=== PATIENT | male | born 1950 | race Caucasian/White ===

== ENCOUNTER 2018-03-25 11:05 | Emergency (ER) | payer MEDICARE ==
--- NOTE | 2018-03-25 11:49 | RAD ---
CHEST TWO VIEWS: HISTORY: Cough. Hemoptysis. COMPARISON: None. FINDINGS/IMPRESSION: Normal cardiac silhouette. The pulmonary vessels are slightly prominent. There are patchy interstit ial opacities throughout the lung parenchyma, greatest along the lateral aspect of the lower right he mithorax, noted on the PA projection. A focal infiltrate in this region is suspected. Continued deb veillance to ensure resolution is recommended. If radiographic findings persist after appropriate me dical management, consider CT. POS: [facility]
== END 2018-03-25 12:18 | disposition home or self-care (01) ==
LOC: SCSER 11:05
DX: J18.9 Pneumonia, unspecified organism (principal); I10 Essential (primary) hypertension; F41.9 Anxiety disorder, unspecified; Z79.899 Other long term (current) drug therapy
CPT/HCPCS: 71046; 93005; 94640; J7620

== ENCOUNTER 2018-08-05 12:14 | Outpatient (CLI) | payer MEDICARE ==
[2018-08-05 12:40] LABS: #Basophils 0.1 thou/uL (0.0-0.2); #Eosinphils 0.3 thou/uL (0.0-0.7); #Lymphocytes 1.9 thou/uL (1.20-3.40); #Monocytes 1.1 thou/uL (0.11-0.59); #Neutrophils 6.2 thou/uL (1.40-6.50); %Basophils 1.2 % (0.0-1.0); %Eosinophils 2.8 % (0.0-10.0); %Lymphocytes 19.6 % (21.0-51.0); %Monocytes 11.6 % (0.0-10.0); %Neutrophils 64.8 % (42.0-75.0); Hemoglobin 16.1 g/dL (14.0-18.0); Mean Corpuscular HGB CONC 33.8 g/dL (32.0-36.0); Mean Corpuscular Hemoglobin 31.8 pg (27.0-31.0); Platelet Count 160 thou/uL (130-400); RBC Distribution Width 12.1 % (11.5-14.5); Red Blood Cell (RBC) Count 5.06 mill/uL (4.70-6.10); White Blood Cell (WBC) Count 9.5 thou/uL (4.8-10.8)
[2018-08-05 12:51] LABS: ALT (SGPT) 16 U/L (8-55); AST (SGOT) 18 U/L (5-34); Albumin 4.5 g/dL (3.4-4.8); Alkaline Phosphatase 73 U/L (40-150); Anion Gap 14 mmol/L (10-20); BUN (Urea Nitrogen) 9 mg/dL (8.4-25.7); Bilirubin, Total 0.8 mg/dL (0.2-1.2); Calc. Creatinine Clearance 0 mL/min (70-130); Carbon Dioxide 28 mmol/L (23-31); Cardiac Risk 4.9 (Less than 4.5); Chloride 103 mmol/L (98-107); Cholesterol 138 mg/dl (< 200 Desired); Estimated GFR-MDRD 60; Globulin 3.2 g/dL (2.4-3.5); Glucose 104 mg/dL (80-115); HDL Cholesterol 28 mg/dL (>60 Neg Risk); LDL Cholesterol, Calculated 79 mg/dL; Potassium 4.8 mmol/L (3.5-5.1); Protein, Total 7.7 g/dL (5.8-8.1); Sodium 140 mmol/L (136-145); Triglycerides 157 mg/dL (Less than 150)
[2018-08-05 13:29] LABS: Free T4 (Free Thyroxine) 1.12 ng/dL (0.70-1.48); PSA-Asymptomatic (SCREENING) 0.32 ng/mL (0-4.0); Thyroid Stimulating Hormone 0.8553 uIU/mL (0.35-4.94)
--- NOTE | 2018-08-05 14:15 | RAD ---
TWO VIEWS OF THE CHEST: DATE: 08/05/2018. COMPARISON: None. HISTORY: Pneumonia, cough. FINDINGS: Heart and mediastinal contours are stable. Hazy density noted on the prior examination within the ri ght base has resolved. On the current exam, there is no pneumothorax, pleural fluid, focal consolida tion, or alveolar edema. There is mild increased linear interstitial density with pulmonary hyperinf lation. IMPRESSION: Interstitial density and pulmonary hyperinflation. No focal consolidation or alveolar edema. POS: [facility]
== END 2018-08-05 12:15 | disposition home or self-care (01) ==
LOC: SCSRAD 12:14
PROVIDERS: ATTEND Family Medicine
DX: Z12.5 Encounter for screening for malignant neoplasm of prostate (principal); J18.1 Lobar pneumonia, unspecified organism; I10 Essential (primary) hypertension; E78.5 Hyperlipidemia, unspecified; R91.8 Other nonspecific abnormal finding of lung field
CPT/HCPCS: 36415; 71046; 80053; 80061; 84439; 84443; 85025; G0103

== ENCOUNTER 2018-12-11 12:47 | Observation (INO) | payer MEDICARE ==
[2018-12-11] MEDS ORDERED: Nitroglycerin 0.4 MG TAB 1 EACH ONE (13:15)
[2018-12-11 13:22] LABS: #Basophils 0.1 thou/uL (0.0-0.2); #Eosinphils 0.2 thou/uL (0.0-0.7); #Lymphocytes 2.1 thou/uL (1.20-3.40); #Monocytes 0.9 thou/uL (0.11-0.59); #Neutrophils 4.5 thou/uL (1.40-6.50); %Basophils 0.9 % (0.0-1.0); %Eosinophils 2.1 % (0.0-10.0); %Lymphocytes 27.6 % (21.0-51.0); %Monocytes 11.2 % (0.0-10.0); %Neutrophils 58.3 % (42.0-75.0); Hemoglobin 14.8 g/dL (14.0-18.0); Mean Corpuscular HGB CONC 35.6 g/dL (32.0-36.0); Mean Corpuscular Volume 95.6 fL (78.0-98.0); Platelet Count 191 thou/uL (130-400); RBC Distribution Width 12.1 % (11.5-14.5); Red Blood Cell (RBC) Count 4.35 mill/uL (4.70-6.10); White Blood Cell (WBC) Count 7.7 thou/uL (4.8-10.8)
--- NOTE | 2018-12-11 13:22 | RAD ---
Exam: Chest one view HISTORY:Chest Pain Comparison: August 05, 2018 FINDINGS: Lungs: No masses or consolidation. Cardiac silhouette:Mildly prominent, accentuated by portable technique Pulmonary vessels: Normal Pleural Spaces: Clear Pneumothorax: None Osseous abnormalities: None of acuity. IMPRESSION: No focal consolidation.
--- NOTE | 2018-12-11 13:27 | CT ---
Exam: Head CT without contrast HISTORY: Lightheadedness. Syncope. Tingling and numbness in the face. COMPARISON: none FINDINGS: Hemorrhage: No intraparenchymal hemorrhage or extra-axial hematoma. Brain parenchyma: Cortical browning-white matter differentiation is preserved. No mass effect or midline shift. Basilar cisterns are patent. Ventricular system: Ventricles and sulci are patent and symmetric. Calvarium: Intact. Sinuses and mastoid air cells: Adequate aeration. IMPRESSION: No acute intracranial process.
[2018-12-11 13:44] LABS: ALT (SGPT) 16 U/L (8-55); AST (SGOT) 15 U/L (5-34); Albumin 4.3 g/dL (3.4-4.8); Alkaline Phosphatase 86 U/L (40-150); Anion Gap 12 mmol/L (10-20); BUN (Urea Nitrogen) 15 mg/dL (8.4-25.7); Bilirubin, Total 0.4 mg/dL (0.2-1.2); CK (CPK) 97 U/L (30-200); Calc. Creatinine Clearance 0 mL/min (70-130); Calcium 9.2 mg/dL (7.8-10.44); Carbon Dioxide 24 mmol/L (23-31); Chloride 105 mmol/L (98-107); Estimated GFR-MDRD 77; Globulin 2.3 g/dL (2.4-3.5); Glucose 92 mg/dL (80-115); Lipase 46 U/L (8-78); Potassium 4.4 mmol/L (3.5-5.1); Protein, Total 6.6 g/dL (5.8-8.1); Sodium 137 mmol/L (136-145)
--- NOTE | 2018-12-11 15:20 | HP ---
PRIMARY CARE PHYSICIAN: Dr. Irvin Baldwin. REASON FOR ADMISSION: Chest pain, rule out CVA. HISTORY OF PRESENT ILLNESS: A 68-year-old male who has underlying history of hypertension, dyslipidemia, who was at [employer] this morning and he was listening lecture and seated. At that point, he experienced left-sided chest pressure, heaviness, which was radiating to left upper extremity. He was also feeling some left arm pain. At the same time, he experienced tingling and numbness sensation in face of the left side as well as the left arm and left leg. He did not notice any weakness. He did not have any facial asymmetry or speech problem. He did not have any headache. Per patient, all these symptoms lasted for about an hour and then pressure sensation in the chest subsided, but he was experiencing arm pain and tingling and numbness sensation on face as well as leg. In the emergency room, he has indeterminate troponin. Chest x-ray is normal. CT brain is negative. His EKG is showing LVH with repolarization changes. Per patient, he has chronically abnormal EKG and a chronically low heart rate. The patient also felt at [facility] as if he is going to pass out, but he did not have any syncope. He did not have any associated nausea, vomiting, diaphoresis, shortness of breath. He is smoking about half pack per day. He has family history of coronary artery disease. He denies any constipation, diarrhea, melena, hematochezia. He never had this type of symptoms before and he never had any cardiac workup in the past. He denies any exertion related chest pain, shortness of breath, palpitation. He denies any upper or lower respiratory symptoms. He denies any UTI symptoms. He denies any immobilization. He denies any cough, tenderness, or pleurisy. REVIEW OF SYSTEMS: CONSTITUTIONAL: Negative for weight loss or gain, ability to conduct usual activities. SKIN: Negative for rash, itching. EYES: Negative for double vision, pain. ENT/MOUTH: Negative for nose bleeding, neck stiffness, pain, tenderness. CARDIOVASCULAR: Negative for palpitations, dyspnea on exertion, orthopnea. RESPIRATORY: Negative for shortness of breath, wheezing, cough, hemoptysis, fever or night sweats. GASTROINTESTINAL: Negative for poor appetite, abdominal pain, heartburn, nausea , vomiting, constipation, or diarrhea. GENITOURINARY: Negative for urgency, frequency, dysuria, nocturia. MUSCULOSKELETAL: Negative for pain, swelling. NEUROLOGIC/PSYCHIATRIC: Negative for anxiety, depression. ALLERGY/IMMUNOLOGIC: Negative for skin rash, bleeding tendency. Please see my HPI for pertinent positives and negatives. All other review of systems reviewed and negative except as mentioned in HPI. PAST MEDICAL HISTORY: Hypertension, dyslipidemia, history of traumatic brain injury in 2009, tobacco abuse disorder, obesity. PAST SURGICAL HISTORY: Left knee surgery, right knee surgery. PAST PSYCHIATRIC HISTORY: Anxiety and depression. SOCIAL HISTORY: The patient drinks alcohol socially. He smokes about half pack per day. He denies any other illicit drug abuse. He is and lives at home with his . FAMILY HISTORY: Mother has history of coronary artery disease. No family history of stroke or cancer. CURRENT HOME MEDICATION: 1. Gabapentin 300 mg two tablets four times daily. 2. Celexa 40 mg daily. 3. Lisinopril 10 mg daily. 4. Lovastatin 20 mg p.o. daily. 5. Trazodone 100 mg p.o. at bedtime. 6. Toprol-XL 25 mg p.o. daily. 7. Tylenol No. 3 one tablet q.6 hourly p.r.n. 8. Flexeril 10 mg as needed. ALLERGIES: NO KNOWN DRUG ALLERGY. EMERGENCY ROOM COURSE: The patient has received aspirin by paramedics. PHYSICAL EXAMINATION: VITAL SIGNS: Currently, blood pressure 132/69, pulse 53, respiratory rate 16, temperature 97.7, saturation 98% on room air. Weight of 117.9 kg. GENERAL: The patient is currently alert, awake, in no obvious acute distress. HEENT: Head; normocephalic, atraumatic. Eyes; pupils round, reactive to light. Extraocular muscles are intact. ENT; oropharynx within normal limits. Moist mucous membranes. No oral lesion. No pharyngeal erythema. No exudate. NECK: Supple. No JVD. No thyromegaly. No carotid bruit. No jugular venous distention. LUNGS: Clear to auscultation without any rhonchi or rales. CARDIAC: S1, S2 regular. No murmur. No gallop. No rub. ABDOMEN: Soft. Bowel sounds are present. Nontender. Nondistended. No organomegaly. No mass. No suprapubic tenderness. Obesity present. BACK: Unremarkable. No CVA tenderness. EXTREMITIES: Upper extremity; passive movement of all joints are normal. Lower extremity; no edema. Good distal pulsation. No calf tenderness. SKIN: No skin rash. HEMATOLOGICAL SYSTEM: No lymphadenopathy. PSYCHIATRIC: Normal affect. NEUROLOGIC: The patient is alert and oriented x3. Cranial nerve 2 through 12 intact. Motor, 5/5 in all 4 limbs. Sensation; the patient does have reduced subjective alteration in sensation on the left face, left arm, and left leg compared to right side. Plantar bilateral flexor, reflexes symmetrical. No cerebellar sign. SIGNIFICANT LABORATORY DATA: EKG showing sinus bradycardia, right bundle-branch block pattern, LVH with repolarization changes. Repeat EKG also showed similar finding. CBC; WBC 7.7, hemoglobin 14.8, platelet 191. BMP; sodium 137, potassium 4.4, chloride 105, carbon dioxide 24, anion gap 12, BUN 15, creatinine 0.97, glucose 92, calcium 9.2. LFT; AST 15, ALT 16, alkaline phosphatase 86, albumin 4.3, lipase 46. CK 97, CK -MB 2.0, troponin I 0.061. CT brain based on my review, no acute intracranial process. Chest x-ray based on my review, no acute cardiopulmonary process. ASSESSMENT AND PLAN: Impression; 1. Chest pain. The patient's chest pain is atypical for angina. He has indeterminate troponin. He has EKG changes, which is supportive of LVH with repolarization changes rather than true ischemia. At this point, he will need observation admission and we will do serial cardiac enzymes x3. If his troponin is trending upwards, then we will consider Cardiology evaluation, but if his troponin remains indeterminate and trending downward, then we will consider doing stress test for further evaluation. We will check lipid profile. At this point, we will hold on nitroglycerin. We will continue with aspirin 325 mg p.o. daily. We will start Lipitor 20 mg p.o. at bedtime. Because of bradycardia, we will hold on Toprol- XL. If blood pressure permits, then we will continue lisinopril 10 mg daily. We will closely monitor on telemetry floor and further investigation based on the clinical course. 2. Tingling, TIA. This patient is also experiencing at the same time of chest pain with paresthesia on the left side. Pure sensory stroke is possible, but CT brain is negative. We will obtain a carotid Doppler as well as MRI brain as a part of workup. The patient will be on aspirin, statin therapy, as well as blood pressure medication. We will monitor his neuro status as well every 4 hourly. 3. Tobacco abuse disorder. Smoking cessation counseling given. Healthy lifestyle measure discussed with the patient. 4. LVH with repolarization changes. The patient has indeterminate troponin and abnormal EKG. We will obtain echocardiography to rule out left ventricular hypertrophy and that will be done as a part of workup for chest pain as well as TIA. 5. Hypertension, currently well controlled and we will continue his home medication, lisinopril 10 mg daily, if blood pressure permits. 6. Sinus bradycardia. We will hold on Toprol-XL because of sinus bradycardia at this point. 7. Chronic low back pain. Continue Flexeril 10 mg t.i.d. p.r.n. and gabapentin 600 mg qid. 8. Anxiety and depression. We will continue Celexa 40 mg daily and trazodone at bedtime. 9. Obesity. Dietary education given. Weight loss education given. Healthy lifestyle measure discussed with the patient. 10. Deep venous thrombosis prophylaxis. Lovenox 40 mg subcu daily. 11. GI prophylaxis. Pepcid 20 mg p.o. b.i.d. CODE STATUS: The patient is full code. The patient's is surrogate decision maker. DISPOSITION PLAN: Based on clinical course. Plan of care discussed with the patient and family member at bedside in the emergency room. Job ID: [id number] MTDD
[2018-12-11] MEDS ORDERED: Acetaminophen 325 MG TAB PO PRN ×2 (16:28→16:43)
[2018-12-11] MEDS ORDERED: Aspirin 325 MG TAB PO SCH (16:30)
[2018-12-11] MEDS ORDERED: hydrALAZINE 20 MG/ML VIAL SLOW IVP PRN (16:43)
[2018-12-11] MEDS ORDERED: Cyclobenzaprine 10 MG TAB PO PRN (16:43)
[2018-12-11] MEDS ORDERED: HYDROcodone/Acetaminophen 5/325 mg Tablet PO PRN (16:43)
[2018-12-11] MEDS ORDERED: traZODone HCl 50 MG TAB PO PRN (16:43)
[2018-12-11] MEDS ORDERED: Ondansetron ODT 4 MG TAB PO PRN (16:43)
[2018-12-11] MEDS ORDERED: Guaifenesin DM 100-10/5 ML UDCUP PO PRN (16:43)
[2018-12-11] MEDS ORDERED: Nitroglycerin 0.4 MG TAB (25 Tab Bottle) PO PRN (16:43)
[2018-12-11] MEDS ORDERED: Senokot S 8.6-50 MG TAB PO PRN (16:43)
[2018-12-11] MEDS ORDERED: Bisacodyl 10 MG SUPP PR PRN (16:43)
[2018-12-11] MEDS ORDERED: Calcium Carbonate 500 MG ChewTAB PO PRN (16:43)
[2018-12-11] MEDS ORDERED: Zolpidem Tartrate 5 MG TAB PO PRN (16:43)
[2018-12-11] MEDS ORDERED: Loperamide HCl 2 MG CAP PO PRN (16:43)
[2018-12-11] MEDS ORDERED: Ondansetron PF 4 MG/2 ML Vial IVP PRN (16:43)
[2018-12-11 17:02] VITALS: BMI 30.4
[2018-12-11 17:27] LABS: Troponin I 0.075 ng/mL (< 0.028)
--- NOTE | 2018-12-11 18:50 | ULT ---
EXAM: Carotid ultrasound HISTORY: Stroke/TIA COMPARISON: None TECHNIQUE: Multiplanar grayscale and color Doppler images were obtained in a carotid ultrasound. Spec tral analysis of the Doppler waveforms were performed. FINDINGS: No significant plaque is visualized in either internal carotid artery. No significant plaque is seen in either common carotid artery. The Doppler waveforms are normal in the visualized vessels. Peak systolic velocity in the right internal carotid artery 83 cm/s. Peak systolic velocity in the right common carotid artery 93 cm/s. The right ICA/CCA ratio is 0.9. Peak systolic velocity in the left internal carotid artery 106 cm/s. Peak systolic velocity in the left common carotid artery 109 cm/s. The left ICA/CCA ratio is 1.0. Both vertebral arteries demonstrate antegrade flow without focal stenosis IMPRESSION: No evidence of hemodynamically significant stenosis.
[2018-12-11 20:09] LABS: Troponin I 0.074 ng/mL (< 0.028)
[2018-12-11] MEDS ORDERED: Atorvastatin Calcium 40 MG TAB PO SCH (21:00)
[2018-12-11] MEDS: Gabapentin 300 MG CAP PO SCH (21:24)
[2018-12-11] MEDS: Famotidine 20 MG TAB PO SCH (21:24)
[2018-12-11 21:53] LABS: Bilirubin Negative (Negative); Blood, Urine Negative (Negative); Clarity CLEAR (Clear); Glucose, Urine (Dipstick) Negative (Negative); Leukocyte Negative (Negative); Nitrite Negative (Negative); Protein, Urine (Dipstick) Negative (Neg-Trace); Urobilinogen 0.2 mg/dL (0.2-1.0); pH, Urine 7.5 (5.0-9.0)
[2018-12-11 21:54] LABS: Bacteria/HPF None Seen HPF (None Seen); Hyaline Casts/LPF 0-3 HYALINE CAST LPF (0-3 Hyaline); RBC/HPF 0-3 HPF (0-3); Squamous Epithelial None Seen HPF (0-3); WBC/HPF None Seen HPF (0-3)
[2018-12-11] MEDS ORDERED: Lorazepam 1 MG TAB PO SCH (22:30)
[2018-12-12 06:10] LABS: Cardiac Risk 6.3 (Less than 4.5)
[2018-12-12] MEDS ORDERED: Lorazepam 1 MG TAB PO SCH (07:00)
[2018-12-12] MEDS: Famotidine 20 MG TAB PO SCH (08:00)
[2018-12-12] MEDS: Gabapentin 300 MG CAP PO SCH ×3 (08:00→18:07)
[2018-12-12] MEDS ORDERED: Acetaminophen/Codeine 30-300mg Tablet PO PRN (08:18)
[2018-12-12] MEDS ORDERED: Acetaminophen/Codeine 30-300mg Tablet PO SCH (08:30)
[2018-12-12] MEDS ORDERED: Aspirin 325 mg Enteric Coated Tablet PO SCH (09:00)
[2018-12-12] MEDS ORDERED: Lisinopril 10 MG TAB PO SCH (09:00)
[2018-12-12] MEDS ORDERED: Enoxaparin Sodium 40 MG/0.4 ML SYRINGE SC SCH (09:00)
[2018-12-12] MEDS ORDERED: Citalopram 20 MG TAB PO SCH (09:00)
--- NOTE | 2018-12-12 10:28 | PDOC.PN ---
- Subjective Encounter Start Date: 12/12/18 Encounter Start Time: 07:10 -: old records requested/rev no chest pressure, but has left arm pain and left side numbness feeling Patient seen and examined. No new complaints. No overnight events - Objective Resuscitation Status - Order Detail: 12/11/18 14:48 Resuscitation Status Routine Resuscitation Status: FULL: Full Resuscitation MAR Reviewed: Yes Vital Signs & Weight: Vital Signs (12 hours) Temp Pulse Resp BP BP BP Pulse Ox 12/12/18 08:07 125/66 12/12/18 07:58 97.7 F 56 L 16 127/69 93 L 12/12/18 04:00 97.6 F 57 L 16 124/59 L 92 L 12/12/18 00:00 97.7 F 58 L 16 111/56 L 94 L Weight Weight 237 lb I&O: 12/11/18 12/12/18 12/13/18 06:59 06:59 06:59 Intake Total 880 Output Total 550 Balance 330 Result Diagrams: 12/11/18 13:05 12/11/18 13:05 Radiology Reviewed by me: Yes (carotid US normal) EKG Reviewed by me: Yes (nsr) Phys Exam - Physical Examination Constitutional: NAD HEENT: PERRLA, moist MMs, sclera anicteric Neck: no JVD, supple Respiratory: no wheezing, no rales, no rhonchi Cardiovascular: RRR, no significant murmur, no rub Gastrointestinal: soft, non-tender, no distention, positive bowel sounds Musculoskeletal: no edema, pulses present Neurological: non-focal, moves all 4 limbs subjective numbness on left side Lymphatic: no nodes Psychiatric: normal affect, A&O x 3 Skin: no rash, normal turgor Dx/Plan (1) Chest pain Code(s): R07.9 - CHEST PAIN, UNSPECIFIED Status: Acute Comment: atypical (2) Elevated troponin Code(s): R74.8 - ABNORMAL LEVELS OF OTHER SERUM ENZYMES Status: Acute Comment: may be related with chest pain, indeterminant, stable (3) TIA (transient ischemic attack) Code(s): G45.9 - TRANSIENT CEREBRAL ISCHEMIC ATTACK, UNSPECIFIED Status: Acute Comment: rule out CVA (4) Anxiety and depression Code(s): F41.9 - ANXIETY DISORDER, UNSPECIFIED; F32.9 - MAJOR DEPRESSIVE DISORDER, SINGLE EPISODE, UNSPECIFIED Status: Chronic (5) Chronic low back pain Code(s): M54.5 - LOW BACK PAIN; G89.29 - OTHER CHRONIC PAIN Status: Chronic (6) Dyslipidemia Code(s): E78.5 - HYPERLIPIDEMIA, UNSPECIFIED Status: Chronic (7) Hypertension Code(s): I10 - ESSENTIAL (PRIMARY) HYPERTENSION Status: Chronic (8) LVH (left ventricular hypertrophy) Code(s): I51.7 - CARDIOMEGALY Status: Chronic (9) Obesity (BMI 30.0-34.9) Code(s): E66.9 - OBESITY, UNSPECIFIED Status: Chronic - Plan cont current plan of care, plan discussed w/ family * today MRI to rule out CVA * echo for chest pain and TIA work up * will get stress test for chest pressure * medication reviewed as below * symptomatic treatment * home meds reconciled. Review of Systems - Review of Systems Constitutional: negative: fever, chills, sweats, weakness, malaise, other Eyes: negative: Pain, Vision Change, Conjunctivae Inflammation, Eyelid Inflammation, Redness, Other ENT: negative: Ear Pain, Ear Discharge, Nose Pain, Nose Discharge, Nose Congestion, Mouth Pain, Mouth Swelling, Throat Pain, Throat Swelling, Other Respiratory: negative: Cough, Dry, Shortness of Breath, Hemoptysis, SOB with Excertion, Pleuritic Pain, Sputum, Wheezing Cardiovascular: negative: chest pain, palpitations, orthopnea, paroxysmal nocturnal dyspnea, edema, light headedness, other Gastrointestinal: negative: Nausea, Vomiting, Abdominal Pain, Diarrhea, Constipation, Melena, Hematochezia, Other Genitourinary: negative: Dysuria, Frequency, Incontinence, Hematuria, Retention , Other Musculoskeletal: Arm Pain. negative: Neck Pain, Shoulder Pain, Back Pain, Hand Pain, Leg Pain, Foot Pain, Other Skin: negative: Rash, Lesions, Brando, Bruising, Other Neurological: Numbness. negative: Weakness, Incoordination, Change in Speech, Confusion, Seizures, Other - Medications/Allergies Allergies/Adverse Reactions: Allergies Allergy/AdvReac Type Severity Reaction Status Date / Time No Known Allergies Allergy Verified 12/11/18 17:26 Medications: Current Medications Acetaminophen (Tylenol) 650 mg PO Q4H PRN PRN Reason: Headache/Fever/Mild Pain (1-3) Acetaminophen/Codeine Phosphate (Tylenol #3) 1 tab PO BIDPRN PRN PRN Reason: Headache Hydrocodone Bitart/Acetaminophen ([place] 5/325) 1 tab PO Q4H PRN PRN Reason: Moderate Pain (4-6) Last Admin: 12/11/18 17:46 Dose: 1 tab Aspirin (Ecotrin) 325 mg PO DAILY [facility] Last Admin: 12/12/18 08:00 Dose: 325 mg Atorvastatin Calcium (Lipitor) 40 mg PO HS [facility] Last Admin: 12/11/18 21:24 Dose: 40 mg Bisacodyl (Dulcolax) 10 mg SC DAILYPRN PRN PRN Reason: Constipation Calcium Carbonate (Tums) 1,000 mg PO Q4H PRN PRN Reason: Heartburn or Indigestion Citalopram Hydrobromide (Celexa) 40 mg PO DAILY [facility] Last Admin: 12/12/18 08:07 Dose: Not Given Cyclobenzaprine HCl (Flexeril) 10 mg PO TIDPRN PRN PRN Reason: Muscle Spasm Enoxaparin Sodium (Lovenox) 40 mg SC 0900 [facility] Last Admin: 12/12/18 08:04 Dose: Not Given Famotidine (Pepcid) 20 mg PO BID [facility] Last Admin: 12/12/18 08:00 Dose: 20 mg Gabapentin (Neurontin) 600 mg PO 0700,1300,1800,2200 [facility] Guaifenesin/Dextromethorphan (Robitussin Dm) 15 ml PO Q4H PRN PRN Reason: Cough Hydralazine HCl (Apresoline) 10 mg SLOW IVP Q4H PRN PRN Reason: SBP Greater Than 170 Lisinopril (Zestril) 10 mg PO DAILY [facility] Last Admin: 12/12/18 08:07 Dose: Not Given Loperamide HCl (Imodium) 2 mg PO PRN PRN PRN Reason: Diarrhea/Loose Stools Lorazepam (Ativan) 1 mg PO 0700 [facility] Stop: 12/12/18 12:00 Nitroglycerin (Nitrostat) 0.4 mg PO Q5MIN PRN PRN Reason: Chest Pain Ondansetron HCl (Zofran Odt) 4 mg PO Q6H PRN PRN Reason: Nausea/Vomiting Ondansetron HCl (Zofran) 4 mg IVP Q6H PRN PRN Reason: Nausea/Vomiting Senna/Docusate Sodium (Senokot S) 2 tab PO BIDPRN PRN PRN Reason: Constipation Trazodone HCl (Desyrel) 100 mg PO HSPRN PRN PRN Reason: Insomnia Last Admin: 12/11/18 21:29 Dose: 100 mg Zolpidem Tartrate (Ambien) 5 mg PO HSPRN PRN PRN Reason: Insomnia Last Admin: 12/11/18 21:29 Dose: 5 mg
[2018-12-12] MEDS ORDERED: Regadenoson 0.4 MG/5 ML SYRINGE ONE (10:31)
[2018-12-12 13:02] VITALS: TEMP 97.5
--- NOTE | 2018-12-12 13:04 | NM ---
EXAM: Nuclear medicine cardiac perfusion examination with ejection fraction HISTORY: Chest pain TECHNIQUE: Rest images: 9.8 mCi technetium 99m sestamibi Stress images: 30.3 mCi of technetium 9M sestamibi; Lexiscan COMPARISON: None FINDINGS: Tomographic images: No fixed or reversible perfusion defects. Gated images: Normal wall motion and ejection fraction of 52%. EDV: 145 mL LHR: 0.3 TID: 1.3 IMPRESSION: No evidence of ischemia
--- NOTE | 2018-12-12 14:59 | MRI ---
MRI BRAIN NONCONTRAST: DATE: 12/12/2018 HISTORY: TIA. Weakness and numbness in the left upper extremity, now resolved FINDINGS: The ventricles are normal in size and configuration. There is no major intra-axial signal abnormality , restricted diffusion, midline shift or any other mass effect, recent intra-axial hemorrhage, or extra-axial fluid collection. There are minimal chronic ischemic white matter changes of the cerebrum . IMPRESSION: 1. Minimal chronic ischemic white matter changes. 2. Otherwise normal.
[2018-12-12 15:28] VITALS: BP 128/60
--- NOTE | 2018-12-13 11:20 | DIS ---
DATE OF ADMISSION: 12/11/2018 DATE OF DISCHARGE: 12/12/2018 PRIMARY CARE PHYSICIAN: Dr. Baldwin. DISCHARGE DISPOSITION: Home. PRIMARY DISCHARGE DIAGNOSES: 1. Chest pain, ruled out acute coronary syndrome, elevated troponin due to demand ischemia. 2. TIA, ruled out stroke. SECONDARY DISCHARGE DIAGNOSES: Obesity, left ventricular hypertrophy with repolarization changes, hypertension, dyslipidemia, chronic low back pain, anxiety, and depression. PRIMARY PROCEDURE/OPERATION: None. RADIOLOGICAL INVESTIGATION: Chest x-ray normal. CT brain negative. Carotid Doppler negative for any stenosis. Stress test negative for any ischemia. MRI brain showed minimal chronic ischemic white matter changes without any acute process. Echocardiography showed EF of 55% to 60%. SIGNIFICANT LABORATORY DATA: WBC 7.7, hemoglobin 14.8, platelet 191. Sodium 137, creatinine 0.97. LFT normal. Troponin 0.061. LDL 69, TSH 0.78, lipase 46. Urinalysis normal. DISCHARGE MEDICATIONS: The patient will continue all his previous home medications. 1. Tylenol No. 3 one tablet daily p.r.n. 2. Aspirin 81 mg p.o. at bedtime. 3. Celexa 40 mg p.o. at bedtime. 4. Flexeril 10 mg t.i.d. p.r.n. 5. Gabapentin 600 mg p.o. q.i.d. 6. Lisinopril 10 mg daily. 7. Lovastatin 20 mg p.o. daily. 8. Toprol-XL 25 mg p.o. daily. 9. Trazodone 100 mg p.o. at bedtime. 10. Ambien 10 mg p.o. at bedtime. CONTRAINDICATION: None. CODE STATUS: Full code. 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 TEST RESULT PENDING ON DISCHARGE: None. ALLERGIES: NO KNOWN DRUG ALLERGIES. DISCHARGE PLAN: Posthospital, the patient will follow up with primary care physician as well as Dr. Rico as instructed. HOSPITAL COURSE: A 68-year-old male with above-mentioned medical problem, who was admitted by me. Please see my H and P for further details. This patient was having chest pressure when he was in [place]. At the same time, he was experiencing left-sided upper and lower extremity paresthesia including face. The patient had slightly elevated troponin, which remained indeterminate range. His description was atypical and that is why we did admit this patient to the hospital for observation. We did monitor on telemetry floor. Telemetry remained unremarkable. The patient underwent stress test, which came back negative. His initial chest x-ray was also normal. Regarding left-sided paresthesia, the patient had CT brain in the emergency room, which was negative. We did a carotid Doppler, which was also negative for any stenosis. An MRI brain showed only white matter ischemic changes without any acute process. Echocardiography was done, which showed left atrium dilated. Other than that, no findings, as well as normal EF. The patient's telemetry remained unremarkable. Neurology saw this patient and Neurology cleared him for discharge on above- mentioned medication. Overall, the patient is medically stable. I have seen and examined the patient at bedside today. Please see my progress note on that day. Job ID: [id number]
== END 2018-12-12 18:20 | disposition home or self-care (01) ==
LOC: ERS 12:47 → 2SE 14:44
PROVIDERS: ADMIT Internal Medicine; ATTEND Internal Medicine
DX: R07.89 Other chest pain (principal); G45.9 Transient cerebral ischemic attack, unspecified; R20.0 Anesthesia of skin; I10 Essential (primary) hypertension; E78.5 Hyperlipidemia, unspecified; M79.603 Pain in arm, unspecified; F17.210 Nicotine dependence, cigarettes, uncomplicated; F41.8 Other specified anxiety disorders; F32.9 Major depressive disorder, single episode, unspecified; G89.29 Other chronic pain; M54.5 Low back pain; E66.9 Obesity, unspecified; Z68.30 Body mass index [BMI] 30.0-30.9, adult; Z79.899 Other long term (current) drug therapy; Z87.820 Personal history of traumatic brain injury
CPT/HCPCS: 70450; 70551; 71045; 78452; 80053; 80061; 81001; 82550; 82553; 83690; 84443; 84484 ×2; 85025; 93005; 93017; 93306; 93880; 99285; A9500; G0378 ×3; 36415; J1650; J2785

== ENCOUNTER 2019-05-15 12:27 | Outpatient (CLI) | payer MEDICARE ==
--- NOTE | 2019-05-15 12:54 | RAD ---
EXAM: XR Lumbar Spine 2 Or 3 View PROVIDED CLINICAL HISTORY: Low back pain for 3 months. Left leg tremor. COMPARISON: None FINDINGS: There are 5 nonrib-bearing lumbar-type vertebral bodies. Multilevel osteophytes are seen. The vertebr al body heights are within normal limits. There is narrowing of the L5-S1 intervertebral disc space. Prominent facet degenerative changes are seen in the lower lumbar spine. The vertebral body he ights are within normal limits. No fracture or subluxation is seen involving the lumbar spine. Vascular calcifications are seen in the abdominal aorta and involving the iliac arteries. There is in creased AP dimension of the distal abdominal aorta measuring 3.4 cm suggesting an abdominal aortic aneurysm. Further evaluation with CT examination versus ultrasound is recommended. IMPRESSION: 1. Suggestion of aneurysmal dilatation of the distal abdominal aorta. Further evaluation with ultraso und examination versus CT scan is recommended. 2. Multilevel degenerative changes in the lumbar spine. No fracture or subluxation is seen.
== END 2019-05-15 12:28 | disposition home or self-care (01) ==
LOC: SCSRAD 12:27
PROVIDERS: ATTEND Family Medicine
DX: M54.5 Low back pain (principal); M47.816 Spondylosis without myelopathy or radiculopathy, lumbar region
CPT/HCPCS: 72100

== ENCOUNTER 2019-05-29 15:40 | Outpatient (CLI) | payer MEDICARE ==
--- NOTE | 2019-05-29 16:14 | RAD ---
2 view chest: [05/29/2019] Comparion:08/05/2018 HISTORY: Productive cough FINDINGS: Heart and mediastinal contours are grossly unremarkable. No pneumothorax or pleural fluid. No focal consolidation or alveolar edema. Multilevel mid thoracic spine disc space narrowing and anterior/right lateral osteophyte formation. IMPRESSION: No acute findings.
== END 2019-05-29 15:41 | disposition home or self-care (01) ==
LOC: SCSRAD 15:40
PROVIDERS: ATTEND Nurse Practitioner Family
DX: R68.89 Other general symptoms and signs (principal)
CPT/HCPCS: 71046

== ENCOUNTER 2020-02-07 10:11 | Outpatient (CLI) | payer MEDICARE ==
--- NOTE | 2020-02-07 11:01 | RAD ---
XR Knee Lt 3 View HISTORY: Left knee pain FINDINGS: No fracture or dislocation is identified. Degenerative changes are present. Postop changes are noted.
[2020-02-07 14:39] LABS: ALT (SGPT) 17 U/L (8-55); AST (SGOT) 18 U/L (5-34); Albumin 4.5 g/dL (3.4-4.8); Alkaline Phosphatase 89 U/L (40-110); Anion Gap 11 mmol/L (10-20); BUN (Urea Nitrogen) 12 mg/dL (8.4-25.7); Bilirubin, Total 0.6 mg/dL (0.2-1.2); Calc. Creatinine Clearance 0 mL/min (70-130); Calcium 9.1 mg/dL (7.8-10.44); Carbon Dioxide 27 mmol/L (23-31); Cardiac Risk 5.7 (Less than 4.5); Chloride 103 mmol/L (98-107); Cholesterol 164 mg/dl (< 200 Desired); Estimated GFR-MDRD 60; Globulin 2.6 g/dL (2.4-3.5); Glucose 102 mg/dL (80-115); HDL Cholesterol 29 mg/dL (>60 Neg Risk); LDL Cholesterol, Calculated 82 mg/dL; Potassium 4.4 mmol/L (3.5-5.1); Protein, Total 7.1 g/dL (5.8-8.1); Sodium 137 mmol/L (136-145); Triglycerides 266 mg/dL (Less than 150)
== END 2020-02-07 10:12 | disposition home or self-care (01) ==
LOC: SCSRAD 10:11
PROVIDERS: ATTEND Family Medicine
DX: M25.562 Pain in left knee (principal); E78.5 Hyperlipidemia, unspecified
CPT/HCPCS: 36415; 80053; 80061

== ENCOUNTER 2020-08-05 01:27 | Inpatient (IN) | payer MEDICARE ==
[2020-08-05] MEDS ORDERED: Diltiazem 125 MG/25 ML ONE (01:43)
[2020-08-05 02:07] LABS: #Basophils 0.1 thou/uL (0.0-0.2); #Eosinphils 0.1 thou/uL (0.0-0.7); #Lymphocytes 1.2 thou/uL (1.20-3.40); #Monocytes 0.9 thou/uL (0.11-0.59); #Neutrophils 9.9 thou/uL (1.40-6.50); %Basophils 0.6 % (0.0-1.0); %Eosinophils 0.5 % (0.0-10.0); %Lymphocytes 10.1 % (21.0-51.0); %Monocytes 7.2 % (0.0-10.0); %Neutrophils 81.7 % (42.0-75.0); Hemoglobin 15.9 g/dL (14.0-18.0); Mean Corpuscular HGB CONC 34.7 g/dL (32.0-36.0); Mean Corpuscular Hemoglobin 33.4 pg (27.0-31.0); Mean Corpuscular Volume 96.1 fL (78.0-98.0); Mean Platelet Volume 7.9 fL (7.4-10.4); Platelet Count 210 thou/uL (130-400); RBC Distribution Width 11.6 % (11.5-14.5); Red Blood Cell (RBC) Count 4.76 mill/uL (4.70-6.10); White Blood Cell (WBC) Count 12.1 thou/uL (4.8-10.8)
[2020-08-05 02:27] LABS: ALT (SGPT) 15 U/L (8-55); AST (SGOT) 17 U/L (5-34); Albumin 4.4 g/dL (3.4-4.8); Alkaline Phosphatase 87 U/L (40-110); Anion Gap 15 mmol/L (10-20); BUN (Urea Nitrogen) 10 mg/dL (8.4-25.7); Bilirubin, Total 0.5 mg/dL (0.2-1.2); Calc. Creatinine Clearance 0 mL/min (70-130); Calcium 9.2 mg/dL (7.8-10.44); Carbon Dioxide 23 mmol/L (23-31); Chloride 102 mmol/L (98-107); Glucose 135 mg/dL (80-115); Potassium 3.8 mmol/L (3.5-5.1); Protein, Total 7.4 g/dL (5.8-8.1); Sodium 136 mmol/L (136-145)
[2020-08-05 02:48] LABS: CKMB 3.5 ng/mL (0-6.6)
[2020-08-05] MEDS ORDERED: Digoxin 0.5 MG/2 ML AMP ONE (02:48)
--- NOTE | 2020-08-05 03:46 | PDOC.HHP ---
Hospitalist HPI - History of Present Illness chest pain, heart palpitations History of Present Illness: PCP: Dr. Fernandez The patient is a 70-year-old male with a past medical history significant for HT N and HLD that presents to the emergency department via EMS for the above complaint. The patient reports the acute onset of chest pain this evening while at home. He reports the chest pain is generalized, described as pressure, exacerbated and relieved by nothing. He reports associated heart palpitation, nausea and vomiting x1 episode. Denies any hemoptysis or hematemesis. EMS was called. Upon arrival, the patient was noted to be in A. fib with RVR heart rate 190. The patient was given Cardizem bolus and placed on a Cardizem drip at 5 mg/h. Patient was brought to the hospital for further evaluation. The patient denies any lightheadedness or swelling to lower extremities. Denies any history of COPD/asthma. No history of DVT/PE. Denies any recent fever or illness. No known sick contacts. He reports that he had his first Covid vaccination on 07/15/2020. He also had dental surgery this past Wednesday. ED Course: VITAL SIGNS WedAug 05, 2020 01:32 LIO Mathias Catherine BP: 125/86, Pulse: 106, Resp: 16, Temp: 99.1 (Oral), Pain: 1, O2 sat: 97 on (R oom Air), Time: 08/05/2020 01:32. VITAL SIGNS WedAug 05, 2020 02:13 LIO Diaz Cheylbi BP: 136/84, Pulse: 138, Resp: 16, Pain: 1, O2 sat: 98 on (Room Air), Time: 08/05/2020 02:13. VITAL SIGNS WedAug 05, 2020 03:00 LIO Johnson Lee BP: 123/81, Pulse: 108, Resp: 18, O2 sat: 99 on (Room Air), Time: 08/05/2020 03:00. Medications: aspirin oral 325 mg Oral Ordered 03:14 08/05/2020 digoxin injection 0.5 mg IV Push Given 02:51 08/05/2020 Cardizem intravenous 7.5 mg/hr IV Fluid Infusion Given 01:57 08/05/2020 Hospitalist ROS - Review of Systems All other systems reviewed; all pertinent +/- noted in HPI/Subj - Medication Medications: 1. Gabapentin 600 mg p.o. 4 times daily 2. Trazodone 150 mg p.o. nightly 3. Lisinopril 10 mg p.o. daily 4. Lovastatin 20 mg p.o. daily 5. Citalopram 40 mg p.o. daily 6. Metoprolol ER 25 mg p.o. daily 7. Ambien 10 mg p.o. nightly 8. Tylenol 3 p.o. as needed pain 9. Cyclobenzaprine 10 mg p.o. as needed muscle spasms 10. Vitamin B complex 11. Aspirin 81 mg p.o. daily 12. 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 negative: ill appearing Eye: anicteric sclera ENT: normocephalic atraumatic, moist mucosa Neck: supple, no lymphadenopathy Heart: RRR, no murmur, no gallops, no rubs, normal peripheral pulses Respiratory: CTAB, no wheezes, no rales, no ronchi, normal chest expansion, no tachypnea Gastrointestinal: soft, non-tender, no bruit, no guarding, no rigidity, distended. negative: normal bowel sounds (Hyperactive) Gastrointestinal - other findings: LBM 1 week ago Extremities: no cyanosis, no edema Skin: no rashes Neurological: cranial nerve grossly intact, no focal deficits Psychiatric: normal affect, A&O x 3 Hospitalist Results - Labs Result Diagrams: 08/05/20 01:57 08/05/20 01:56 Lab results: WBC 12.1 thou/uL (4.8-10.8) H 08/05/20 01:57 Hgb 15.9 g/dL (14.0-18.0) 08/05/20 01:57 Hct 45.7 % (42.0-52.0) 08/05/20 01:57 MCV 96.1 fL (78.0-98.0) 08/05/20 01:57 Plt Count 210 thou/uL (130-400) 08/05/20 01:57 Neutrophils % 81.7 % (42.0-75.0) H 08/05/20 01:57 Sodium 136 mmol/L (136-145) 08/05/20 01:56 Potassium 3.8 mmol/L (3.5-5.1) 08/05/20 01:56 Chloride 102 mmol/L (98-107) 08/05/20 01:56 Carbon Dioxide 23 mmol/L (23-31) 08/05/20 01:56 BUN 10 mg/dL (8.4-25.7) 08/05/20 01:56 Creatinine 1.01 mg/dL (0.7-1.3) 08/05/20 01:56 Glucose 135 mg/dL (80-115) H 08/05/20 01:56 Calcium 9.2 mg/dL (7.8-10.44) 08/05/20 01:56 Total Bilirubin 0.5 mg/dL (0.2-1.2) 08/05/20 01:56 AST 17 U/L (5-34) 08/05/20 01:56 ALT 15 U/L (8-55) 08/05/20 01:56 Alkaline Phosphatase 87 U/L (40-110) 08/05/20 01:56 CK-MB (CK-2) 3.5 ng/mL (0-6.6) 08/05/20 01:56 Troponin I 0.101 ng/mL (< 0.028) H 08/05/20 01:56 B-Natriuretic Peptide 80.9 pg/mL (0-100) 08/05/20 01:56 Serum Total Protein 7.4 g/dL (5.8-8.1) 08/05/20 01:56 Albumin 4.4 g/dL (3.4-4.8) 08/05/20 01:56 - EKG Interpretation EK lead EKG interpreted by Emergency Department Physician at time of study, 12 lead EKG shows, atrial fibrillation with rapid ventricular response, Rate (beats per minute): 105, with no ectopics, Conduction with, complete right bundle branch block, ST segments normal, T waves, [place] normal, Other findings include:, left ventricular hypertrophy, Clinical impression:, dysrhythmia - atrial. - Radiology Interpretation Chest x-ray Status: report reviewed by me Hospitalist H&P A/P - Problem (1) Atrial fibrillation with RVR Code(s): I48.91 - UNSPECIFIED ATRIAL FIBRILLATION Status: Acute (2) Chest pain Code(s): R07.9 - CHEST PAIN, UNSPECIFIED Status: Acute (3) HTN (hypertension) Code(s): I10 - ESSENTIAL (PRIMARY) HYPERTENSION Status: Chronic (4) HLD (hyperlipidemia) Code(s): E78.5 - HYPERLIPIDEMIA, UNSPECIFIED Status: Chronic (5) TBI (traumatic brain injury) Code(s): S06.9X9A - UNSP INTRACRANIAL INJURY W LOC OF UNSP DURATION, INIT Status: Chronic - Plan Plan: Patient with PMH HTN, HLD presents for chest pain or palpitations. EKG A. fib RVR 190 bpm. Troponin 0.101. Had oral surgery last wednesday. - WBCs mild elevation 12.1. #A. fib with RVR New onset. ChadsVasc score 2, HASBLED score 2 Order PT/INR baseline. Start Lovenox 1 mg/kg. Continue Cardizem drip. Consult cardiology. Echocardiogram. A: rate controlled HR 60s upon assessment. #Chest pain EKG A. fib RVR, no ST elevations. Heart score 4, [place] PE score 1. Trend troponins, check TSH and mag level Continue aspirin, start home dose statin. Likely related to problem #1. #HTN Presented normotensive. Restart home dose lisinopril and metoprolol. #HLD Check FLP. Restart home dose lovastatin #TBI Chronic, stable (2008) Lovenox for DVT prophylaxis. No GI prophylaxis. CODE STATUS full code. Discussed the case with attending physician, Dr. Roderick Godoy, who agrees with plan of care.
[2020-08-05] MEDS ORDERED: Ondansetron PF 4 MG/2 ML Vial IVP PRN (03:51)
[2020-08-05] MEDS ORDERED: Acetaminophen 325 MG TAB PO PRN (03:51)
[2020-08-05] MEDS ORDERED: Ondansetron ODT 4 MG TAB PO PRN (03:51)
[2020-08-05] MEDS ORDERED: Aspirin 325 MG TAB ONE (03:55)
[2020-08-05] MEDS ORDERED: Diltiazem 125 MG in Sodium Chloride 0.9% 100 ML IVPB SCH (04:00)
[2020-08-05] MEDS ORDERED: Enoxaparin Sodium 100 MG/ML SYRINGE SC SCH (04:00)
[2020-08-05] MEDS ORDERED: Acetaminophen/Codeine 30-300mg Tablet PO PRN ×3 (04:24→14:39)
[2020-08-05] MEDS ORDERED: Cyclobenzaprine 10 MG TAB PO PRN (04:24)
[2020-08-05] MEDS ORDERED: Cyclobenzaprine 10 MG TAB PO SCH (04:30)
[2020-08-05] MEDS ORDERED: Enoxaparin Sodium 120 MG/0.8 ML SYRINGE SC SCH (05:00)
[2020-08-05 05:24] LABS: Prothrombin Time 13.1 sec (12.0-14.7)
[2020-08-05 06:07] LABS: Cardiac Risk 4.9 (Less than 4.5)
[2020-08-05 06:19] LABS: Troponin I 0.354 ng/mL (< 0.028)
--- NOTE | 2020-08-05 08:13 | RAD ---
Portable frontal chest radiograph: 08/05/2020 COMPARISON: 12/11/2018 HISTORY: Chest pain, chest pressure FINDINGS: No pneumothorax or pleural fluid. Mild pulmonary vascular congestion. No focal consolidatio n or alveolar edema. IMPRESSION: No focal consolidation or alveolar edema.
[2020-08-05] MEDS ORDERED: Lisinopril 10 MG TAB PO SCH (09:00)
[2020-08-05] MEDS ORDERED: Gabapentin 300 MG CAP PO SCH (09:00)
[2020-08-05] MEDS ORDERED: Famotidine 20 MG TAB PO SCH (09:00)
[2020-08-05] MEDS ORDERED: Simvastatin 10 MG TAB PO SCH (09:00)
[2020-08-05] MEDS ORDERED: Communication Order-Pharmacy FS SCH (09:15)
[2020-08-05] MEDS ORDERED: Sodium Chloride 0.9% 1,000 ML IV SCH ×2 (09:15→14:45)
--- NOTE | 2020-08-05 09:49 | CON ---
DATE OF CONSULTATION: REASON FOR CONSULTATION: Atrial fibrillation and chest pain. 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 HISTORY OF PRESENT ILLNESS: Mr. Kern is a very pleasant 70-year-old gentleman, who recently presented with acute onset chest pain. He states he had a heaviness in his chest. No heart fluttering or palpitations present. He presented to the emergency room with atrial fibrillation. He has not converted back to sinus rhythm. He is currently chest pain free. Peak troponin was 0.3. I did review the patient's previous echo and stress test. Overall, LVEF has been normal. Stress test performed in 2019 showed an LVEF of 55% with no significant ischemia present. PAST MEDICAL HISTORY: Brain injury with no skull fracture or bleeding present. Chronic headaches are noted, hypertension, hyperlipidemia. HOME MEDICATIONS: Include; 1. Gabapentin. 2. Trazodone. 3. Lisinopril. 4. Lovastatin. 5. Citalopram. 6. Metoprolol. 7. Ambien. 8. Tylenol. 9. Cyclobenzaprine. 10. Vitamin B. ALLERGIES: NONE. SOCIAL HISTORY: Positive tobacco use. SURGICAL HISTORY: Knee surgery. REVIEW OF SYSTEMS: A 10-point review of systems is reviewed and is as above, negative. PHYSICAL EXAMINATION: GENERAL: Patient is a pleasant gentleman who is in no acute distress. The patient appears their stated age. VITAL SIGNS: Blood pressure 130/70, pulse 74, respirations 20. NEUROLOGIC: The patient is alert and oriented x3 with no focal neurologic deficits. HEENT: Sclerae without icterus. Mouth has moist mucous membranes with normal pallor. NECK: No JVD. Carotid upstroke brisk. No bruits bilaterally. LUNGS: Clear to auscultation with unlabored respirations. BACK: No scoliosis or kyphosis. CARDIAC: Regular rate and rhythm with normal S1 and S2. No S3 or S4 noted. No significant rubs, murmurs, thrills, or gallops noted throughout the precordium. PMI is not displaced. There is no parasternal heave. ABDOMEN: Soft, nontender, nondistended. No peritoneal signs present. No hepatosplenomegaly. No abnormal striae. EXTREMITIES: 2+ femoral and 2+ dorsalis pedis pulses. No cyanosis, clubbing, or edema. SKIN: No gross abnormalities. PERTINENT LABORATORY DATA: Hemoglobin 15.9, hematocrit 45.7. Peak troponin 1.1. EKG shows normal sinus rhythm with right bundle branch block, ST wave changes suggesting LVH. IMPRESSION: 1. Acute onset chest pain. 2. Atrial fibrillation. 3. Tobacco abuse. RECOMMENDATIONS: Mr. Kern's symptoms certainly suggest unstable angina. I am unsure whether the chest pain proceeded the atrial fibrillation or vice versa. Given no current symptoms of atrial fibrillation, I feel this is likely a primary event. He is currently pain free. We will recommend coronary angiography and possible PCI. I discussed procedure in full detail with Mr. Kern. Risks include, but not limited to the following: , stroke, OR, need for emergency surgery, loss of limb, bleeding, and infection, as well as a reaction to the dye causing kidney failure and needing long-term dialysis. I also discussed the risks of PCI to include all of the above including coronary dissection and perforation in addition to acute stent thrombosis and restenosis. All questions about the procedure were answered. Given the above, the patient agreed to proceed with coronary angiography and possible PCI. All questions answered. I also discussed drug coated versus nondrug coated stent placement. There were no contraindications to proceed if needed. Job ID: [id number]
[2020-08-05 12:25] VITALS: TEMP 99.1
[2020-08-05 13:24] LABS: SARS-CoV-2 PCR by NAA Not Detected (NotDetected)
[2020-08-05] MEDS ORDERED: Iopamidol 370 76% 100 ML VIAL ONE (13:27)
[2020-08-05] MEDS ORDERED: Heparin 10,000 UNITS/ 10 ML VIAL ONE (13:58)
[2020-08-05] MEDS ORDERED: Nitroglycerin 100MG/250ML BOT 250 ML ONE (13:58)
[2020-08-05] MEDS ORDERED: Verapamil 5 MG/2 ML VIAL ONE (13:58)
[2020-08-05] MEDS ORDERED: Adenosine 6 MG/2 ML VIAL ONE (14:08)
[2020-08-05] MEDS ORDERED: Fentanyl 100 MCG/2 ML VIAL ONE (14:08)
[2020-08-05] MEDS ORDERED: Midazolam HCl 2 mg/2 ml Vial ONE (14:09)
[2020-08-05] MEDS ORDERED: Nitroglycerin 0.4 MG TAB (25 Tab Bottle) SL PRN (14:39)
[2020-08-05] MEDS ORDERED: Sodium Chloride 0.9% 200 ML IV PRN (14:39)
[2020-08-05] MEDS ORDERED: Acetaminophen/Codeine 30-300mg Tablet ONE (16:10)
[2020-08-05] MEDS ORDERED: Gabapentin 300 MG CAP ONE (16:35)
--- NOTE | 2020-08-05 17:02 | PDOC.DS.DS ---
Provider - Provider Date of Admission: 08/05/20 03:46 Date of Discharge: 08/05/20 Admitting Provider: Marcell Rodriguez Consultations: Cardiology (Dr. Patel) Primary Care Physician: Marleen Cabello MD Course - Hospital Course Hospital Course: Patient was admitted from the emergency room due to atrial fibrillation and rapid ventricular rate. This converted to normal sinus rhythm with medications. Patient did have an elevation in his troponin up to greater than 1. He had no chest pain and was without symptoms after conversion to normal sinus rhythm. Dr. Patel was consulted and did take the patient back for cardiac catheterization. This showed mild coronary artery disease. Dr. Patel did recommend increasing patient's metoprolol to 25 mg twice a day. Due to patient's psychiatric medications he was not able to take Multaq or amiodarone. Dr. Patel plans to provide patient with a monitor. And has cleared the patient to be discharged home. Procedures: Cardiac catheterization: Mild coronary artery disease and evidence for left ventricular hypertrophy. No intervention performed. Resuscitation Status: 08/05/20 03:51 Resuscitation Status Routine Co-Sign Provider: Resuscitation Status: FULL: Full Resuscitation Discussed with: patient - Labs Lab Results: 08/05/20 01:57 08/05/20 01:56 Abnormal Lab Results - Last 48 hrs 08/05/20 01:56: Troponin I 0.101 H 08/05/20 01:57: WBC 12.1 H, MCH 33.4 H, Neutrophils % 81.7 H, Lymphocytes % 10.1 L, Neutrophils # 9.9 H, Monocytes # 0.9 H 08/05/20 05:07: Troponin I 0.354 H* 08/05/20 05:07: Triglycerides 186 H 08/05/20 08:07: Troponin I 1.100 H* - Physical Exam Vitals: Vital Signs (12 hours) Temp 08/05/20 12:20 99.1 F Most Recent Monitor Data Heart Rate from ECG 61 NIBP 154/77 NIBP BP-Mean 102 Respiration from ECG 14 SpO2 96 Physical Exam: The patient was seen and examined on the day of discharge. Problem - Discharge Plan Assessment: Patient with atrial fibrillation and rapid ventricular rate now back in normal sinus rhythm. He did have a type II myocardial infarction due to the A. fib. Only mild coronary artery disease on the cardiac catheterization. Plan of Treatment: Increase metoprolol and follow-up with Dr. Patel as an outpatient. Dr. Patel will arrange for a home monitor. - Problem (1) Coronary artery disease Code(s): I25.10 - ATHSCL HEART DISEASE OF [place] CORONARY ARTERY W/O ANG PCTRS Status: Acute Plan: Mild (2) Atrial fibrillation with RVR Code(s): I48.91 - UNSPECIFIED ATRIAL FIBRILLATION Status: Acute (3) Type 2 AMI (acute myocardial infarction) Code(s): I21.A1 - MYOCARDIAL INFARCTION TYPE 2 Status: Acute (4) Anxiety and depression Code(s): F41.9 - ANXIETY DISORDER, UNSPECIFIED; F32.9 - MAJOR DEPRESSIVE DISORDER, SINGLE EPISODE, UNSPECIFIED Status: Chronic (5) Chronic low back pain Code(s): M54.5 - LOW BACK PAIN; G89.29 - OTHER CHRONIC PAIN Status: Chronic (6) Dyslipidemia Code(s): E78.5 - HYPERLIPIDEMIA, UNSPECIFIED Status: Chronic (7) HLD (hyperlipidemia) Code(s): E78.5 - HYPERLIPIDEMIA, UNSPECIFIED Status: Chronic (8) HTN (hypertension) Code(s): I10 - ESSENTIAL (PRIMARY) HYPERTENSION Status: Chronic (9) LVH (left ventricular hypertrophy) Code(s): I51.7 - CARDIOMEGALY Status: Chronic (10) Obesity (BMI 30.0-34.9) Code(s): E66.9 - OBESITY, UNSPECIFIED Status: Chronic (11) TBI (traumatic brain injury) Code(s): S06.9X9A - UNSP INTRACRANIAL INJURY W LOC OF UNSP DURATION, INIT Status: Chronic - Time spent with Patient (mins): 25 Plan - Discharge Medications Prescriptions: Apixaban [Eliquis] 5 mg PO BID #60 tab Metoprolol Succinate [Toprol XL] 25 mg PO BID #60 tab Home Medications: Medication Instructions Recorded Confirmed Type Acetaminophen W/ Codeine 1 tab PO DAILY PRN 12/11/18 12/11/18 History [Acetaminophen/Codeine #3] Aspirin 81 mg PO HS 12/11/18 12/11/18 History Citalopram Hydrobromide 40 mg PO HS 12/11/18 12/11/18 History [Citalopram HBr] Cyclobenzaprine [Flexeril] 10 mg PO TID PRN 12/11/18 12/11/18 History Gabapentin 600 mg PO QID 12/11/18 12/11/18 History Lisinopril 10 mg PO DAILY 12/11/18 12/11/18 History Lovastatin 20 mg PO DAILY 12/11/18 12/11/18 History Zolpidem Tartrate 10 mg PO HS 12/11/18 12/11/18 History traZODone HCl [Trazodone HCl] 100 mg PO HS 12/11/18 12/11/18 History Apixaban [Eliquis] 5 mg PO BID #60 tab 08/05/20 Rx Metoprolol Succinate [Toprol XL] 25 mg PO BID #60 tab 08/05/20 Rx Allergies: No Known Allergies Allergy (Verified 12/11/18 17:26) - Discharge Instructions Activity:: Activity as Tolerated Nourishment:: Heart Healthy Diet Therapies:: Not Applicable Equipment/Supplies:: Not Applicable IV Therapy:: Not Applicable - Follow up Plan Referrals: Marleen Cabello MD [Primary Care Provider] - Kevin Patel MD [Active] - (As directed) Disposition: HOME Quality - Care Measures CORE MEASURES:: N/A
[2020-08-05] MEDS ORDERED: traZODone HCl 50 MG TAB PO SCH (21:00)
[2020-08-05] MEDS ORDERED: Citalopram 20 MG TAB PO SCH (21:00)
[2020-08-05] MEDS ORDERED: Zolpidem Tartrate 5 MG TAB PO SCH (21:00)
[2020-08-06] MEDS ORDERED: Apixaban 5 MG TAB PO SCH (09:00)
[2020-08-06] MEDS ORDERED: Aspirin 81 mg Enteric Coated Tablet PO SCH (09:00)
== END 2020-08-05 18:10 | disposition home or self-care (01) | DRG 282 ==
LOC: ERS 01:27 → ERHOLD 03:46
PROVIDERS: ADMIT Internal Medicine; ATTEND Emergency Medicine
PROC: B2111ZZ Fluoroscopy of Multiple Coronary Arteries using Low Osmolar Contrast (ICD-10-PCS; principal; 2020-08-05)
PROC: B2151ZZ Fluoroscopy of Left Heart using Low Osmolar Contrast (ICD-10-PCS; 2020-08-05)
PROC: 4A023N7 Measurement of Cardiac Sampling and Pressure, Left Heart, Percutaneous Approach (ICD-10-PCS; 2020-08-05)
DX: I48.91 Unspecified atrial fibrillation (principal); I21.A1 Myocardial infarction type 2; I10 Essential (primary) hypertension; E78.5 Hyperlipidemia, unspecified; F17.210 Nicotine dependence, cigarettes, uncomplicated; I25.10 Atherosclerotic heart disease of native coronary artery without angina pectoris; I51.7 Cardiomegaly; M54.5 Low back pain; G89.29 Other chronic pain; E66.9 Obesity, unspecified; Z20.828 Contact with and (suspected) exposure to other viral communicable diseases; Z87.820 Personal history of traumatic brain injury; Z79.82 Long term (current) use of aspirin; Z79.899 Other long term (current) drug therapy; Z98.890 Other specified postprocedural states
CPT/HCPCS: 36415; 71045; 80053; 80061; 82553; 83735; 83880; 84443; 84484; 85025; 85610; 85730; 87635; 93005; 93458; 99152; J0153; J1160; J1644; J2250; J3010; Q9967; U0003; U0005

== ENCOUNTER 2021-11-21 11:10 | Inpatient (IN) | payer MEDICARE, OTHER ==
[2021-11-21] MEDS ORDERED: Dexamethasone 4 mg/ml Vial ONE (12:14)
[2021-11-21] MEDS ORDERED: Ketorolac Tromethamine 30 MG/ML VIAL ONE (12:43)
[2021-11-21] MEDS ORDERED: Lorazepam 2 MG/ML VIAL ONE (12:44)
[2021-11-21] MEDS ORDERED: Morphine 4 MG/ML VIAL ONE (13:30)
[2021-11-21] MEDS ORDERED: Ondansetron PF 4 MG/2 ML Vial ONE (13:30)
[2021-11-21 16:33] LABS: #Lymphocytes 0.6 thou/uL (1.20-3.40); #Monocytes 0.6 thou/uL (0.11-0.59); #Neutrophils 14.2 thou/uL (1.40-6.50); %Basophils 0.3 % (0.0-1.0); %Eosinophils 0.1 % (0.0-10.0); %Lymphocytes 4.1 % (21.0-51.0); %Monocytes 3.7 % (0.0-10.0); %Neutrophils 91.9 % (42.0-75.0); Hemoglobin 11.9 g/dL (14.0-18.0); Mean Corpuscular HGB CONC 32.5 g/dL (32.0-36.0); Mean Corpuscular Hemoglobin 31.3 pg (27.0-31.0); Mean Corpuscular Volume 96.4 fL (78.0-98.0); Mean Platelet Volume 6.2 fL (7.4-10.4); Platelet Count 275 thou/uL (130-400); RBC Distribution Width 12.3 % (11.5-14.5); White Blood Cell (WBC) Count 15.5 thou/uL (4.8-10.8)
[2021-11-21 17:05] LABS: ALT (SGPT) 14 U/L (8-55); AST (SGOT) 18 U/L (5-34); Albumin 3.7 g/dL (3.4-4.8); Alkaline Phosphatase 66 U/L (40-110); Anion Gap 12 mmol/L (10-20); BUN (Urea Nitrogen) 11 mg/dL (8.4-25.7); Calc. Creatinine Clearance 0 mL/min (70-130); Calcium 8.7 mg/dL (7.8-10.44); Carbon Dioxide 22 mmol/L (23-31); Chloride 100 mmol/L (98-107); Globulin 3.4 g/dL (2.4-3.5); Glucose 139 mg/dL (80-115); Protein, Total 7.1 g/dL (5.8-8.1); Sodium 130 mmol/L (136-145)
[2021-11-21] MEDS ORDERED: Acetaminophen 325 MG TAB PO PRN ×2 (17:29→17:45)
[2021-11-21] MEDS ORDERED: Ondansetron PF 4 MG/2 ML Vial IVP PRN ×2 (17:29→17:45)
[2021-11-21] MEDS ORDERED: HYDROcodone/Acetaminophen 10/325 mg Tablet PO PRN (17:29)
[2021-11-21] MEDS ORDERED: HYDROcodone/Acetaminophen 5/325 mg Tablet PO PRN (17:29)
[2021-11-21] MEDS ORDERED: Senokot S 8.6-50 MG TAB PO PRN (17:29)
[2021-11-21] MEDS ORDERED: Sodium Chloride 0.9% 1,000 ML IV SCH ×2 (17:30→18:48)
[2021-11-21] MEDS ORDERED: Melatonin 3 MG TAB PO PRN (17:35)
[2021-11-21 17:44] VITALS: BMI 31.3
[2021-11-21] MEDS ORDERED: Ondansetron ODT 4 MG TAB SL PRN (17:45)
[2021-11-21] MEDS: Morphine 2 MG/ML VIAL SLOW IVP PRN (18:16)
[2021-11-21] MEDS ORDERED: Pantoprazole 40 MG VIAL IVP SCH (21:00)
[2021-11-21] MEDS: Gabapentin 300 MG CAP PO SCH (21:14)
[2021-11-21] MEDS: Citalopram 20 MG TAB PO SCH (21:15)
[2021-11-21] MEDS: Zolpidem Tartrate 5 MG TAB PO SCH (21:15)
[2021-11-21] MEDS: Apixaban 5 MG TAB PO SCH (21:15)
[2021-11-21] MEDS: traZODone HCl 150 MG TAB PO SCH (21:16)
[2021-11-21] MEDS: Acetaminophen/Codeine 30-300mg Tablet PO PRN (21:16)
[2021-11-21] MEDS: Baclofen 10 MG TAB PO SCH (21:17)
[2021-11-21] MEDS: Simvastatin 10 MG TAB PO SCH (21:18)
[2021-11-21 22:53] LABS: Bacteria/HPF None Seen HPF (None Seen); Bilirubin Negative (Negative); Blood, Urine Negative (Negative); Clarity Clear (Clear); Glucose, Urine (Dipstick) 30 mg/dL (Negative); Ketone, Urine Negative (Negative); Leukocyte Negative Leu/uL (Negative); Mucous/LPF Rare LPF (<2+); Nitrite Negative (Negative); Protein, Urine (Dipstick) Negative (Neg-Trace); Specific Gravity, Urine 1.015 (1.002-1.036); Squamous Epithelial None Seen HPF (0-3); Urobilinogen Normal mg/dL (Less than 2); WBC/HPF 0-3 HPF (0-3); pH, Urine 5.5 (5.0-9.0)
[2021-11-21 22:57] LABS: RBC/HPF 0-3 HPF (0-3)
[2021-11-21 22:59] LABS: Urine Culture Reflex No No
[2021-11-22] MEDS: Dexamethasone 4 mg/ml Vial SLOW IVP SCH ×3 (05:20→21:25)
[2021-11-22] MEDS: Morphine 2 MG/ML VIAL SLOW IVP PRN ×4 (05:22→17:06)
[2021-11-22 06:18] LABS: #Lymphocytes 0.7 thou/uL (1.20-3.40); #Neutrophils 14.2 thou/uL (1.40-6.50); %Basophils 0.1 % (0.0-1.0); %Eosinophils 0.1 % (0.0-10.0); %Lymphocytes 4.2 % (21.0-51.0); %Monocytes 6.1 % (0.0-10.0); %Neutrophils 89.6 % (42.0-75.0); Mean Corpuscular HGB CONC 33.2 g/dL (32.0-36.0); Mean Corpuscular Hemoglobin 31.9 pg (27.0-31.0); Mean Corpuscular Volume 96.2 fL (78.0-98.0); Mean Platelet Volume 6.1 fL (7.4-10.4); Platelet Count 249 thou/uL (130-400); Red Blood Cell (RBC) Count 3.46 mill/uL (4.70-6.10); White Blood Cell (WBC) Count 15.8 thou/uL (4.8-10.8)
[2021-11-22 06:23] LABS: Hemoglobin A1c 5.3 % (4.0-6.0)
[2021-11-22 06:58] LABS: ALT (SGPT) 15 U/L (8-55); AST (SGOT) 26 U/L (5-34); Albumin 3.3 g/dL (3.4-4.8); Alkaline Phosphatase 63 U/L (40-110); Anion Gap 13 mmol/L (10-20); BUN (Urea Nitrogen) 15 mg/dL (8.4-25.7); Bilirubin, Total 0.5 mg/dL (0.2-1.2); Calc. Creatinine Clearance 123 mL/min (70-130); Calcium 8.6 mg/dL (7.8-10.44); Carbon Dioxide 22 mmol/L (23-31); Chloride 102 mmol/L (98-107); Globulin 3.4 g/dL (2.4-3.5); Glucose 158 mg/dL (80-115); Potassium 4.4 mmol/L (3.5-5.1); Protein, Total 6.7 g/dL (5.8-8.1); Sodium 133 mmol/L (136-145)
[2021-11-22] MEDS ORDERED: Pantoprazole 40 MG VIAL IVP SCH (09:00)
[2021-11-22] MEDS: Apixaban 5 MG TAB PO SCH (09:01)
[2021-11-22] MEDS: Furosemide 20 MG TAB PO SCH (09:01)
[2021-11-22] MEDS: Baclofen 10 MG TAB PO SCH (09:01)
[2021-11-22] MEDS: Gabapentin 300 MG CAP PO SCH ×3 (09:02→20:01)
[2021-11-22] MEDS: Empagliflozin 10 MG TAB PO SCH (09:06)
[2021-11-22] MEDS: Acetaminophen/Codeine 30-300mg Tablet PO PRN ×4 (09:09→23:56)
[2021-11-22] MEDS ORDERED: HYDROcodone/Acetaminophen 5/325 mg Tablet PO PRN ×2 (14:32→16:48)
[2021-11-22 16:23] LABS: SARS-CoV-2 PCR by NAA Not Detected (NotDetected)
[2021-11-22] MEDS: Morphine 4 MG/ML VIAL SLOW IVP PRN ×2 (18:10→21:24)
[2021-11-22] MEDS: Mometasone 200 MCG/Formoterol 5 MCG 120 PUFF INHALER INH SCH (18:58)
[2021-11-22] MEDS: Senokot S 8.6-50 MG TAB PO SCH (20:01)
[2021-11-22] MEDS: Citalopram 20 MG TAB PO SCH (20:01)
[2021-11-22] MEDS: Zolpidem Tartrate 5 MG TAB PO SCH (20:02)
[2021-11-22] MEDS: traZODone HCl 150 MG TAB PO SCH (20:02)
[2021-11-22] MEDS: Simvastatin 10 MG TAB PO SCH (21:32)
[2021-11-23] MEDS: Morphine 4 MG/ML VIAL SLOW IVP PRN ×7 (01:30→22:28)
[2021-11-23] MEDS: Acetaminophen/Codeine 30-300mg Tablet PO PRN ×5 (03:54→21:02)
[2021-11-23] MEDS: Dexamethasone 4 mg/ml Vial SLOW IVP SCH ×3 (05:30→21:02)
[2021-11-23] MEDS: Mometasone 200 MCG/Formoterol 5 MCG 120 PUFF INHALER INH SCH ×2 (07:25→18:53)
[2021-11-23] MEDS: Furosemide 20 MG TAB PO SCH (07:49)
[2021-11-23] MEDS: Gabapentin 300 MG CAP PO SCH ×3 (07:50→21:03)
[2021-11-23] MEDS: Empagliflozin 10 MG TAB PO SCH (07:52)
[2021-11-23] MEDS: Senokot S 8.6-50 MG TAB PO SCH ×2 (07:52→21:04)
[2021-11-23] MEDS: tiZANidine HCl 4 MG TAB PO PRN ×3 (07:55→22:28)
[2021-11-23] MEDS: HYDROcodone/Acetaminophen 10/325 mg Tablet PO PRN (18:24)
[2021-11-23] MEDS: traZODone HCl 150 MG TAB PO SCH (21:02)
[2021-11-23] MEDS: Zolpidem Tartrate 5 MG TAB PO SCH (21:04)
[2021-11-23] MEDS: Citalopram 20 MG TAB PO SCH (21:04)
[2021-11-23] MEDS: Simvastatin 10 MG TAB PO SCH (22:28)
[2021-11-24] MEDS: Acetaminophen/Codeine 30-300mg Tablet PO PRN ×4 (00:23→18:15)
[2021-11-24] MEDS: Morphine 4 MG/ML VIAL SLOW IVP PRN ×6 (01:38→20:04)
[2021-11-24] MEDS: HYDROcodone/Acetaminophen 10/325 mg Tablet PO PRN ×3 (03:31→23:25)
[2021-11-24] MEDS: Dexamethasone 4 mg/ml Vial SLOW IVP SCH ×3 (04:30→20:09)
[2021-11-24] MEDS: Mometasone 200 MCG/Formoterol 5 MCG 120 PUFF INHALER INH SCH ×2 (06:36→18:20)
[2021-11-24] MEDS: Gabapentin 300 MG CAP PO SCH ×3 (08:12→20:08)
[2021-11-24] MEDS: Furosemide 20 MG TAB PO SCH (08:13)
[2021-11-24] MEDS: Senokot S 8.6-50 MG TAB PO SCH ×2 (08:13→20:08)
[2021-11-24] MEDS: Empagliflozin 10 MG TAB PO SCH (08:14)
[2021-11-24] MEDS ORDERED: Apixaban 5 MG TAB PO SCH (15:30)
[2021-11-24] MEDS: Apixaban 5 MG TAB PO SCH (20:08)
[2021-11-24] MEDS: Zolpidem Tartrate 5 MG TAB PO SCH (20:08)
[2021-11-24] MEDS: traZODone HCl 150 MG TAB PO SCH (20:08)
[2021-11-24] MEDS: Citalopram 20 MG TAB PO SCH (20:08)
[2021-11-24] MEDS: Simvastatin 10 MG TAB PO SCH (20:09)
[2021-11-25] MEDS: Morphine 4 MG/ML VIAL SLOW IVP PRN ×5 (01:29→18:57)
[2021-11-25] MEDS: HYDROcodone/Acetaminophen 10/325 mg Tablet PO PRN ×3 (04:23→21:08)
[2021-11-25] MEDS: Dexamethasone 4 mg/ml Vial SLOW IVP SCH ×3 (06:27→21:08)
[2021-11-25] MEDS: Mometasone 200 MCG/Formoterol 5 MCG 120 PUFF INHALER INH SCH ×2 (06:32→18:28)
[2021-11-25 07:42] LABS: Hemoglobin 11.2 g/dL (14.0-18.0); Mean Corpuscular Hemoglobin 31.7 pg (27.0-31.0); Mean Corpuscular Volume 99.2 fL (78.0-98.0); Mean Platelet Volume 6.9 fL (7.4-10.4); Platelet Count 318 thou/uL (130-400); RBC Distribution Width 12.6 % (11.5-14.5); Red Blood Cell (RBC) Count 3.54 mill/uL (4.70-6.10); White Blood Cell (WBC) Count 17.3 thou/uL (4.8-10.8)
[2021-11-25 07:57] LABS: Anion Gap 15 mmol/L (10-20); BUN (Urea Nitrogen) 19 mg/dL (8.4-25.7); Calc. Creatinine Clearance 124 mL/min (70-130); Calcium 8.9 mg/dL (7.8-10.44); Carbon Dioxide 28 mmol/L (23-31); Chloride 99 mmol/L (98-107); Glucose 115 mg/dL (80-115); Potassium 4.6 mmol/L (3.5-5.1); Sodium 137 mmol/L (136-145)
[2021-11-25] MEDS: Apixaban 5 MG TAB PO SCH ×2 (08:00→21:01)
[2021-11-25] MEDS: Gabapentin 300 MG CAP PO SCH ×3 (08:00→21:01)
[2021-11-25] MEDS: Senokot S 8.6-50 MG TAB PO SCH ×2 (08:00→21:01)
[2021-11-25] MEDS: Acetaminophen/Codeine 30-300mg Tablet PO PRN ×2 (08:00→17:55)
[2021-11-25] MEDS: Furosemide 20 MG TAB PO SCH (08:01)
[2021-11-25] MEDS: Empagliflozin 10 MG TAB PO SCH (08:01)
[2021-11-25 09:14] LABS: Band 6 % (5-11); Lymphocytes 8 % (21-51); MDiff Complete? YES; Monocytes 4 % (0-10); Neutrophil 82 % (42-75); Platelet Morphology Comment Appears Adequate; RBC Morphology Normal
[2021-11-25] MEDS: Citalopram 20 MG TAB PO SCH (21:00)
[2021-11-25] MEDS: Zolpidem Tartrate 5 MG TAB PO SCH (21:01)
[2021-11-25] MEDS: Flecainide 50 MG TAB PO SCH (21:01)
[2021-11-25] MEDS: traZODone HCl 150 MG TAB PO SCH (21:01)
[2021-11-25] MEDS: Aspirin Chewable 81 MG TAB PO SCH (21:01)
[2021-11-25] MEDS: Simvastatin 10 MG TAB PO SCH (21:02)
[2021-11-26] MEDS: Acetaminophen/Codeine 30-300mg Tablet PO PRN ×3 (05:39→18:22)
[2021-11-26] MEDS: Dexamethasone 4 mg/ml Vial SLOW IVP SCH ×3 (05:39→21:09)
[2021-11-26] MEDS: Morphine 4 MG/ML VIAL SLOW IVP PRN ×5 (07:04→22:26)
[2021-11-26] MEDS: Mometasone 200 MCG/Formoterol 5 MCG 120 PUFF INHALER INH SCH ×2 (07:16→18:49)
[2021-11-26] MEDS: Ascorbic Acid 500 mg Chewable Tablet PO SCH (08:26)
[2021-11-26] MEDS: Stress 600 With Zinc 1 TAB PO SCH (08:26)
[2021-11-26] MEDS: tiZANidine HCl 4 MG TAB PO PRN ×2 (08:26→15:17)
[2021-11-26] MEDS: Furosemide 20 MG TAB PO SCH (08:27)
[2021-11-26] MEDS: Cholecalciferol 1,000 UNITS (25 MCG) TAB PO SCH (08:27)
[2021-11-26] MEDS: Apixaban 5 MG TAB PO SCH ×2 (08:27→21:03)
[2021-11-26] MEDS: Flecainide 50 MG TAB PO SCH ×2 (08:27→21:03)
[2021-11-26] MEDS: Senokot S 8.6-50 MG TAB PO SCH ×2 (08:27→21:03)
[2021-11-26] MEDS: Empagliflozin 10 MG TAB PO SCH (08:28)
[2021-11-26] MEDS: Gabapentin 300 MG CAP PO SCH ×3 (08:28→21:04)
[2021-11-26] MEDS: HYDROcodone/Acetaminophen 10/325 mg Tablet PO PRN ×3 (08:35→21:04)
[2021-11-26] MEDS ORDERED: Non-Formulary Item 1 EACH (Cholecalciferol (Vitamin D3) [Vitamin D] 1000 UNIT Capsule) PO SCH (09:00)
[2021-11-26] MEDS ORDERED: [UNRECOGNIZED DRUG - OTHER] PO SCH (09:00)
[2021-11-26] MEDS ORDERED: VITAMIN B COMPLEX PO SCH (09:00)
[2021-11-26] MEDS ORDERED: FOLIC ACID PO SCH (09:00)
[2021-11-26] MEDS ORDERED: Non-Formulary Item 1 EACH (Ascorbic Acid [Vitamin C] 1,000 MG Tablet) PO SCH (09:00)
[2021-11-26] MEDS ORDERED: CALCIUM CARBONATE PO SCH (09:00)
[2021-11-26] MEDS: traZODone HCl 150 MG TAB PO SCH (21:03)
[2021-11-26] MEDS: Simvastatin 10 MG TAB PO SCH (21:03)
[2021-11-26] MEDS: Zolpidem Tartrate 5 MG TAB PO SCH (21:03)
[2021-11-26] MEDS: Citalopram 20 MG TAB PO SCH (21:03)
[2021-11-26] MEDS: Aspirin Chewable 81 MG TAB PO SCH (21:03)
[2021-11-27] MEDS: tiZANidine HCl 4 MG TAB PO PRN ×2 (05:38→13:16)
[2021-11-27] MEDS: Dexamethasone 4 mg/ml Vial SLOW IVP SCH (05:38)
[2021-11-27] MEDS: HYDROcodone/Acetaminophen 10/325 mg Tablet PO PRN ×3 (05:38→20:40)
[2021-11-27] MEDS: Bisacodyl 5 MG TAB PO PRN (05:39)
[2021-11-27 06:24] LABS: Anion Gap 14 mmol/L (10-20); BUN (Urea Nitrogen) 21 mg/dL (8.4-25.7); Calc. Creatinine Clearance 125 mL/min (70-130); Calcium 8.8 mg/dL (7.8-10.44); Carbon Dioxide 29 mmol/L (23-31); Chloride 101 mmol/L (98-107); Glucose 121 mg/dL (80-115); Potassium 4.6 mmol/L (3.5-5.1); Sodium 139 mmol/L (136-145)
[2021-11-27 06:29] LABS: Band 2 % (5-11); Hemoglobin 11.5 g/dL (14.0-18.0); Lymphocytes 11 % (21-51); MDiff Complete? YES; Macrocytosis SLIGHT = 6-15 cells (100X) (0-5/hpf); Mean Corpuscular HGB CONC 31.6 g/dL (32.0-36.0); Mean Corpuscular Hemoglobin 31.7 pg (27.0-31.0); Mean Platelet Volume 6.9 fL (7.4-10.4); Monocytes 7 % (0-10); Neutrophil 78 % (42-75); Platelet Count 344 thou/uL (130-400); Platelet Morphology Comment Appears Adequate; RBC Distribution Width 12.9 % (11.5-14.5); Reactive Lymphocytes 2 % (0-10); Red Blood Cell (RBC) Count 3.62 mill/uL (4.70-6.10); White Blood Cell (WBC) Count 17.6 thou/uL (4.8-10.8)
[2021-11-27] MEDS: Mometasone 200 MCG/Formoterol 5 MCG 120 PUFF INHALER INH SCH ×2 (07:08→18:56)
[2021-11-27] MEDS: Stress 600 With Zinc 1 TAB PO SCH (08:04)
[2021-11-27] MEDS: Flecainide 50 MG TAB PO SCH ×2 (08:04→20:41)
[2021-11-27] MEDS: Furosemide 20 MG TAB PO SCH (08:04)
[2021-11-27] MEDS: Gabapentin 300 MG CAP PO SCH ×3 (08:04→20:41)
[2021-11-27] MEDS: Apixaban 5 MG TAB PO SCH (08:04)
[2021-11-27] MEDS: Senokot S 8.6-50 MG TAB PO SCH ×2 (08:04→20:41)
[2021-11-27] MEDS: Cholecalciferol 1,000 UNITS (25 MCG) TAB PO SCH (08:04)
[2021-11-27] MEDS: Ascorbic Acid 500 mg Chewable Tablet PO SCH (08:04)
[2021-11-27] MEDS: Empagliflozin 10 MG TAB PO SCH (08:05)
[2021-11-27] MEDS: Morphine 4 MG/ML VIAL SLOW IVP PRN (09:47)
[2021-11-27] MEDS: Acetaminophen/Codeine 30-300mg Tablet PO PRN ×2 (11:57→18:35)
[2021-11-27] MEDS: Aspirin Chewable 81 MG TAB PO SCH (20:40)
[2021-11-27] MEDS: Citalopram 20 MG TAB PO SCH (20:41)
[2021-11-27] MEDS: Simvastatin 10 MG TAB PO SCH (20:41)
[2021-11-27] MEDS: Zolpidem Tartrate 5 MG TAB PO SCH (20:41)
[2021-11-27] MEDS: traZODone HCl 150 MG TAB PO SCH (20:41)
[2021-11-28] MEDS: tiZANidine HCl 4 MG TAB PO PRN ×2 (05:00→13:47)
[2021-11-28] MEDS: Bisacodyl 5 MG TAB PO PRN (05:00)
[2021-11-28] MEDS: HYDROcodone/Acetaminophen 10/325 mg Tablet PO PRN ×3 (05:00→19:21)
[2021-11-28] MEDS: Mometasone 200 MCG/Formoterol 5 MCG 120 PUFF INHALER INH SCH ×2 (06:55→18:53)
[2021-11-28] MEDS ORDERED: predniSONE 50 MG TAB PO SCH (08:00)
[2021-11-28] MEDS: Flecainide 50 MG TAB PO SCH ×2 (08:28→19:48)
[2021-11-28] MEDS: Cholecalciferol 1,000 UNITS (25 MCG) TAB PO SCH (08:28)
[2021-11-28] MEDS: Ascorbic Acid 500 mg Chewable Tablet PO SCH (08:28)
[2021-11-28] MEDS: Stress 600 With Zinc 1 TAB PO SCH (08:28)
[2021-11-28] MEDS: Senokot S 8.6-50 MG TAB PO SCH ×2 (08:28→19:53)
[2021-11-28] MEDS: Acetaminophen/Codeine 30-300mg Tablet PO PRN (08:29)
[2021-11-28] MEDS: Furosemide 20 MG TAB PO SCH (08:29)
[2021-11-28] MEDS: Gabapentin 300 MG CAP PO SCH ×3 (08:30→19:47)
[2021-11-28] MEDS: Empagliflozin 10 MG TAB PO SCH (08:30)
[2021-11-28] MEDS: Morphine 4 MG/ML VIAL SLOW IVP PRN (09:41)
[2021-11-28] MEDS ORDERED: Pantoprazole 40 MG VIAL IVP SCH (09:45)
[2021-11-28] MEDS: Ketorolac Tromethamine 10 MG TAB PO SCH ×2 (11:37→17:17)
[2021-11-28] MEDS: Zolpidem Tartrate 5 MG TAB PO SCH (19:47)
[2021-11-28] MEDS: traZODone HCl 150 MG TAB PO SCH (19:48)
[2021-11-28] MEDS: Citalopram 20 MG TAB PO SCH (19:48)
[2021-11-28] MEDS: Simvastatin 10 MG TAB PO SCH (19:52)
[2021-11-28] MEDS: Aspirin Chewable 81 MG TAB PO SCH (19:54)
[2021-11-28 23:57] LABS: SARS-CoV-2 PCR by NAA Not Detected (NotDetected)
[2021-11-29] MEDS: Ketorolac Tromethamine 10 MG TAB PO SCH ×5 (00:58→19:38)
[2021-11-29 06:42] LABS: Mean Corpuscular HGB CONC 31.3 g/dL (32.0-36.0); Mean Corpuscular Hemoglobin 31.2 pg (27.0-31.0); Mean Corpuscular Volume 99.8 fL (78.0-98.0); Mean Platelet Volume 6.9 fL (7.4-10.4); Platelet Count 314 thou/uL (130-400); RBC Distribution Width 13.2 % (11.5-14.5); Red Blood Cell (RBC) Count 3.85 mill/uL (4.70-6.10); White Blood Cell (WBC) Count 13.7 thou/uL (4.8-10.8)
[2021-11-29 06:59] LABS: Anion Gap 12 mmol/L (10-20); BUN (Urea Nitrogen) 26 mg/dL (8.4-25.7); Calc. Creatinine Clearance 125 mL/min (70-130); Calcium 8.3 mg/dL (7.8-10.44); Carbon Dioxide 28 mmol/L (23-31); Chloride 101 mmol/L (98-107); Glucose 83 mg/dL (80-115); Potassium 3.9 mmol/L (3.5-5.1); Sodium 137 mmol/L (136-145)
[2021-11-29] MEDS: Mometasone 200 MCG/Formoterol 5 MCG 120 PUFF INHALER INH SCH ×2 (07:12→19:29)
[2021-11-29 07:41] LABS: Band 2 % (5-11); Hypochromia SLIGHT = 6-15 cells (100X) (0-5/hpf); Lymphocytes 9 % (21-51); MDiff Complete? YES; Monocytes 4 % (0-10); Neutrophil 85 % (42-75); Platelet Morphology Comment Appears Adequate
[2021-11-29] MEDS: Senokot S 8.6-50 MG TAB PO SCH ×2 (08:48→19:39)
[2021-11-29] MEDS: Furosemide 20 MG TAB PO SCH (08:48)
[2021-11-29] MEDS: HYDROcodone/Acetaminophen 10/325 mg Tablet PO PRN ×2 (08:49→19:13)
[2021-11-29] MEDS: Cholecalciferol 1,000 UNITS (25 MCG) TAB PO SCH (08:49)
[2021-11-29] MEDS: Flecainide 50 MG TAB PO SCH ×2 (08:50→19:39)
[2021-11-29] MEDS: Stress 600 With Zinc 1 TAB PO SCH (08:50)
[2021-11-29] MEDS: Gabapentin 300 MG CAP PO SCH ×3 (08:50→19:39)
[2021-11-29] MEDS: Ascorbic Acid 500 mg Chewable Tablet PO SCH (08:50)
[2021-11-29] MEDS: Empagliflozin 10 MG TAB PO SCH (08:52)
[2021-11-29] MEDS: Morphine 4 MG/ML VIAL SLOW IVP PRN (16:00)
[2021-11-29] MEDS: Bisacodyl 5 MG TAB PO PRN (16:00)
[2021-11-29] MEDS: traZODone HCl 150 MG TAB PO SCH (19:38)
[2021-11-29] MEDS: Citalopram 20 MG TAB PO SCH (19:39)
[2021-11-29] MEDS: Zolpidem Tartrate 5 MG TAB PO SCH (19:43)
[2021-11-29] MEDS: Aspirin Chewable 81 MG TAB PO SCH (19:44)
[2021-11-29] MEDS: Simvastatin 10 MG TAB PO SCH (19:53)
[2021-11-30] MEDS: HYDROcodone/Acetaminophen 10/325 mg Tablet PO PRN ×2 (02:10→08:12)
[2021-11-30] MEDS: tiZANidine HCl 4 MG TAB PO PRN ×2 (02:15→12:19)
[2021-11-30] MEDS: Ketorolac Tromethamine 10 MG TAB PO SCH ×2 (05:32→12:18)
[2021-11-30 06:49] LABS: #Basophils 0.1 thou/uL (0.0-0.2); #Eosinphils 0.1 thou/uL (0.0-0.7); #Monocytes 0.9 thou/uL (0.11-0.59); #Neutrophils 11.7 thou/uL (1.40-6.50); %Basophils 0.4 % (0.0-1.0); %Eosinophils 0.6 % (0.0-10.0); %Lymphocytes 7.3 % (21.0-51.0); %Monocytes 6.6 % (0.0-10.0); Hemoglobin 11.4 g/dL (14.0-18.0); Mean Corpuscular HGB CONC 31.8 g/dL (32.0-36.0); Mean Corpuscular Hemoglobin 31.3 pg (27.0-31.0); Mean Corpuscular Volume 98.5 fL (78.0-98.0); Mean Platelet Volume 6.7 fL (7.4-10.4); Platelet Count 269 thou/uL (130-400); RBC Distribution Width 13.2 % (11.5-14.5); Red Blood Cell (RBC) Count 3.65 mill/uL (4.70-6.10); White Blood Cell (WBC) Count 13.7 thou/uL (4.8-10.8)
[2021-11-30 07:11] LABS: Anion Gap 11 mmol/L (10-20); BUN (Urea Nitrogen) 24 mg/dL (8.4-25.7); Calc. Creatinine Clearance 123 mL/min (70-130); Calcium 8.2 mg/dL (7.8-10.44); Carbon Dioxide 26 mmol/L (23-31); Chloride 102 mmol/L (98-107); Glucose 80 mg/dL (80-115); Potassium 4.1 mmol/L (3.5-5.1); Sodium 135 mmol/L (136-145)
[2021-11-30] MEDS: Mometasone 200 MCG/Formoterol 5 MCG 120 PUFF INHALER INH SCH (07:14)
[2021-11-30] MEDS: Senokot S 8.6-50 MG TAB PO SCH (08:11)
[2021-11-30] MEDS: Ascorbic Acid 500 mg Chewable Tablet PO SCH (08:11)
[2021-11-30] MEDS: Stress 600 With Zinc 1 TAB PO SCH (08:11)
[2021-11-30] MEDS: Cholecalciferol 1,000 UNITS (25 MCG) TAB PO SCH (08:11)
[2021-11-30] MEDS: Gabapentin 300 MG CAP PO SCH ×2 (08:12→14:57)
[2021-11-30] MEDS: Flecainide 50 MG TAB PO SCH (08:12)
[2021-11-30] MEDS: Furosemide 20 MG TAB PO SCH (08:12)
[2021-11-30] MEDS: Empagliflozin 10 MG TAB PO SCH (08:18)
[2021-11-30 08:29] VITALS: TEMP 98.2
[2021-11-30] MEDS ORDERED: Acetaminophen/Codeine 30-300mg Tablet PO SCH (14:45)
[2021-11-30 15:27] VITALS: BP 100/52
== END 2021-11-30 16:10 | DRG 552 ==
LOC: ERS 11:10 → T4-A 16:56 → OBSVTOIN 11-22 16:12
PROVIDERS: ADMIT Internal Medicine; ATTEND Internal Medicine
DX: M48.061 Spinal stenosis, lumbar region without neurogenic claudication (principal); E87.1 Hypo-osmolality and hyponatremia; I48.20 Chronic atrial fibrillation, unspecified; I50.32 Chronic diastolic (congestive) heart failure; I13.0 Hypertensive heart and chronic kidney disease with heart failure and stage 1 through stage 4 chronic kidney disease, or unspecified chronic kidney disease; M51.36 Other intervertebral disc degeneration, lumbar region; M47.814 Spondylosis without myelopathy or radiculopathy, thoracic region; Z20.822 Contact with and (suspected) exposure to COVID-19; I25.10 Atherosclerotic heart disease of native coronary artery without angina pectoris; E78.5 Hyperlipidemia, unspecified; G89.29 Other chronic pain; E66.9 Obesity, unspecified; F41.9 Anxiety disorder, unspecified; F32.A Depression, unspecified; I71.4 Abdominal aortic aneurysm, without rupture; R73.9 Hyperglycemia, unspecified; J44.9 Chronic obstructive pulmonary disease, unspecified; T38.0X5A Adverse effect of glucocorticoids and synthetic analogues, initial encounter; D72.829 Elevated white blood cell count, unspecified; K59.09 Other constipation; N18.2 Chronic kidney disease, stage 2 (mild); E16.2 Hypoglycemia, unspecified; Z87.820 Personal history of traumatic brain injury; Z88.8 Allergy status to other drugs, medicaments and biological substances; Z79.82 Long term (current) use of aspirin; Z79.52 Long term (current) use of systemic steroids; Z79.51 Long term (current) use of inhaled steroids; Z79.899 Other long term (current) drug therapy; Z87.891 Personal history of nicotine dependence; Z95.0 Presence of cardiac pacemaker; Z98.890 Other specified postprocedural states
CPT/HCPCS: 36415; 71045; 72128; 72131; 72148; 80048; 80053; 81001; 83036; 83930; 83935; 84300; 85025; 94640; 96374; 96375; C9113; J1100; J1885; J2060; J2270; J2405; J7050; J7512; J7620; U0003; U0005

== ENCOUNTER 2021-12-18 12:32 | Inpatient (IN) | payer MEDICARE, OTHER ==
[~2021-12-18 12:32] MED LIST: Heparin 1,000 UNITS/ML VIAL ONE; Iopamidol-370 76% 500 ML 1 ML ONE
[2021-12-18 13:49] LABS: Mean Corpuscular HGB CONC 31.8 g/dL (32.0-36.0); Mean Corpuscular Hemoglobin 29.4 pg (27.0-31.0); Mean Corpuscular Volume 92.7 fL (78.0-98.0); Mean Platelet Volume 5.8 fL (7.4-10.4); Platelet Count 452 thou/uL (130-400); RBC Distribution Width 14.1 % (11.5-14.5)
[2021-12-18 14:10] LABS: ALT (SGPT) 21 U/L (8-55); AST (SGOT) 24 U/L (5-34); Alkaline Phosphatase 76 U/L (40-110); Anion Gap 15 mmol/L (10-20); BUN (Urea Nitrogen) 9 mg/dL (8.4-25.7); Bilirubin, Total 0.7 mg/dL (0.2-1.2); Calc. Creatinine Clearance 0 mL/min (70-130); Calcium 8.4 mg/dL (7.8-10.44); Carbon Dioxide 22 mmol/L (23-31); Chloride 102 mmol/L (98-107); Globulin 3.7 g/dL (2.4-3.5); Glucose 98 mg/dL (80-115); Potassium 4.1 mmol/L (3.5-5.1); Protein, Total 6.7 g/dL (5.8-8.1); Sodium 135 mmol/L (136-145)
[2021-12-18 14:17] LABS: Band 25 % (5-11); Lymphocytes 6 % (21-51); MDiff Complete? YES; Monocytes 3 % (0-10); Neutrophil 66 % (42-75); Platelet Morphology Comment Appears Increased; Polychromasia SLIGHT = 2-3 cells (100X) (0-2/hpf)
[2021-12-18 14:33] LABS: CKMB 0.3 ng/mL (0-6.6)
[2021-12-18] MEDS ORDERED: Cefepime 2 GM VIAL ONE (14:51)
[2021-12-18] MEDS ORDERED: Aspirin 325 MG TAB ONE (15:53)
[2021-12-18] MEDS ORDERED: VANCOMYCIN 2 GRAM/500 ML BAG 2 GM in Premix Bag 1 BAG IVPB SCH (16:15)
[2021-12-18 18:24] LABS: Bilirubin Negative (Negative); Blood, Urine Negative (Negative); Clarity Clear (Clear); Glucose, Urine (Dipstick) Normal (Negative); Ketone, Urine Negative (Negative); Leukocyte Negative Leu/uL (Negative); Nitrite Negative (Negative); Protein, Urine (Dipstick) Negative (Neg-Trace); Specific Gravity, Urine 1.013 (1.002-1.036); Urobilinogen Normal mg/dL (Less than 2)
[2021-12-18] MEDS ORDERED: Ondansetron ODT 4 MG TAB SL PRN (19:30)
[2021-12-18] MEDS ORDERED: Ondansetron PF 4 MG/2 ML Vial IVP PRN (19:30)
[2021-12-18] MEDS ORDERED: Acetaminophen 325 MG TAB PO PRN (19:30)
[2021-12-18 20:31] LABS: CKMB 0.5 ng/mL (0-6.6)
[2021-12-18] MEDS ORDERED: Citalopram 20 MG TAB PO SCH (21:30)
[2021-12-18] MEDS ORDERED: Apixaban 5 MG TAB PO SCH (21:30)
[2021-12-18] MEDS ORDERED: traZODone HCl 150 MG TAB PO SCH (21:30)
[2021-12-18] MEDS ORDERED: Acetaminophen/Codeine 30-300mg Tablet PO SCH (21:30)
[2021-12-18] MEDS ORDERED: Cyclobenzaprine 10 MG TAB PO SCH (21:30)
[2021-12-18] MEDS ORDERED: Flecainide 50 MG TAB PO SCH (21:30)
[2021-12-18] MEDS ORDERED: Gabapentin 400 MG CAP PO SCH (21:30)
[2021-12-18] MEDS ORDERED: Metoprolol Tartrate 50 MG TAB PO SCH (21:30)
[2021-12-18] MEDS ORDERED: Simvastatin 10 MG TAB PO SCH (21:30)
[2021-12-18] MEDS: Sodium Chloride 0.9% 1,000 ML IV SCH ×3 (22:28→23:07)
[2021-12-18] MEDS: Cefepime 2 GM in Sodium Chloride 0.9% 100 ML IVPB SCH ×2 (22:51→23:08)
[2021-12-18 23:20] VITALS: BMI 30.7
[2021-12-19] MEDS: HYDROcodone/Acetaminophen 10/325 mg Tablet PO PRN ×4 (02:44→23:21)
[2021-12-19] MEDS ORDERED: Cefepime 2 GM in Sodium Chloride 0.9% 100 ML IVPB SCH (03:00)
[2021-12-19 04:57] LABS: #Eosinphils 0.1 thou/uL (0.0-0.7); #Lymphocytes 1.2 thou/uL (1.20-3.40); #Monocytes 0.8 thou/uL (0.11-0.59); #Neutrophils 12.1 thou/uL (1.40-6.50); %Basophils 0.2 % (0.0-1.0); %Lymphocytes 8.2 % (21.0-51.0); %Monocytes 5.8 % (0.0-10.0); %Neutrophils 84.8 % (42.0-75.0); Hemoglobin 8.7 g/dL (14.0-18.0); Mean Corpuscular HGB CONC 32.1 g/dL (32.0-36.0); Mean Corpuscular Hemoglobin 30.1 pg (27.0-31.0); Mean Corpuscular Volume 93.7 fL (78.0-98.0); Mean Platelet Volume 5.6 fL (7.4-10.4); Platelet Count 396 thou/uL (130-400); RBC Distribution Width 13.8 % (11.5-14.5); Red Blood Cell (RBC) Count 2.89 mill/uL (4.70-6.10); White Blood Cell (WBC) Count 14.2 thou/uL (4.8-10.8)
[2021-12-19] MEDS ORDERED: VANCOMYCIN 1.25 GM/250 ML BAG 1.25 GM in Premix Bag 1 BAG IVPB SCH (05:00)
[2021-12-19] MEDS ORDERED: Vancomycin 1 GM in Premix Bag 1 BAG IVPB SCH (05:00)
[2021-12-19] MEDS: Sodium Chloride 0.9% 1,000 ML IV SCH (05:18)
[2021-12-19 05:27] LABS: Anion Gap 11 mmol/L (10-20); BUN (Urea Nitrogen) 9 mg/dL (8.4-25.7); Calc. Creatinine Clearance 137 mL/min (70-130); Calcium 8.2 mg/dL (7.8-10.44); Carbon Dioxide 24 mmol/L (23-31); Chloride 106 mmol/L (98-107); Glucose 103 mg/dL (80-115); Potassium 3.7 mmol/L (3.5-5.1); Sodium 137 mmol/L (136-145)
[2021-12-19] MEDS ORDERED: Albuterol Sulfate 2.5 mg/3 ml Neb NEB PRN (08:57)
[2021-12-19] MEDS ORDERED: Albuterol Sulfate 2.5 mg/3 ml Neb NEB SCH (09:00)
[2021-12-19] MEDS ORDERED: Apixaban 5 MG TAB PO SCH (09:15)
[2021-12-19 09:39] LABS: Actual Bicarbonate (HCO3a) 21.1 mEq/L (22-28); Analyzer IN Cardio OR; Base Excess (BEa) -3.3 mEq/L (-2.0 to +3.0); CO2 Tension 35.4 mmHg (35.0-45.0); Calcium, Ionized (arterial) 1.16 mmol/L (1.12-1.30); Carboxyhemoglobin (COHb) 1.1 gm% (0.0-3.0); Hemoglobin (Hb) 10.6 g/dL (14.0-18.0); Potassium - ABG Lab 3.83 mmol/L (3.70-5.30); pH, Arterial 7.39 (7.35-7.45)
[2021-12-19 09:40] LABS: Puncture Site RRA
[2021-12-19] MEDS: Albuterol Sulfate 2.5 mg/3 ml Neb NEB SCH ×4 (09:45→23:30)
[2021-12-19] MEDS ORDERED: Furosemide 40 MG/4 ML VIAL SLOW IVP SCH (09:45)
[2021-12-19] MEDS: Mometasone 200 MCG/Formoterol 5 MCG 120 PUFF INHALER INH SCH ×2 (09:57→19:03)
[2021-12-19 10:35] LABS: CKMB 1.1 ng/mL (0-6.6)
[2021-12-19] MEDS ORDERED: GABAPENTIN PO SCH (15:00)
[2021-12-19] MEDS: Gabapentin 400 MG CAP PO SCH ×2 (15:21→20:49)
[2021-12-19] MEDS: AMPicillin 2 GM in Sodium Chloride 0.9% 100 ML IVPB SCH ×2 (16:58→20:47)
[2021-12-19] MEDS: Acetaminophen/Codeine 30-300mg Tablet PO PRN (19:28)
[2021-12-19] MEDS: cefTRIAXone\\ROCEPHIN 2 GM in Sodium Chloride 0.9% 100 ML IVPB SCH (20:47)
[2021-12-19] MEDS: Aspirin Chewable 81 MG TAB PO SCH (20:48)
[2021-12-19] MEDS: Citalopram 20 MG TAB PO SCH (20:48)
[2021-12-19] MEDS: Flecainide 50 MG TAB PO SCH (20:49)
[2021-12-19] MEDS: Atorvastatin Calcium 10 MG TAB PO SCH (20:49)
[2021-12-19] MEDS: traZODone HCl 150 MG TAB PO SCH (20:49)
[2021-12-19] MEDS: Apixaban 5 MG TAB PO SCH (20:50)
[2021-12-19] MEDS: Cyclobenzaprine 10 MG TAB PO PRN (20:58)
[2021-12-19] MEDS: Senokot S 8.6-50 MG TAB PO SCH (20:58)
[2021-12-19] MEDS ORDERED: Non-Formulary Item 1 EACH (Trazodone Hcl [Trazodone Hcl] 100 MG Tab) PO SCH (21:00)
[2021-12-19] MEDS ORDERED: LOVASTATIN PO SCH (21:00)
[2021-12-19] MEDS ORDERED: Non-Formulary Item 1 EACH (Citalopram Hydrobromide [Citalopram Hbr] 40 MG Tablet) PO SCH (21:00)
[2021-12-20] MEDS: AMPicillin 2 GM in Sodium Chloride 0.9% 100 ML IVPB SCH ×6 (00:38→20:38)
[2021-12-20] MEDS: Albuterol Sulfate 2.5 mg/3 ml Neb NEB SCH ×5 (02:47→23:10)
[2021-12-20 04:55] LABS: #Eosinphils 0.2 thou/uL (0.0-0.7); #Lymphocytes 1.2 thou/uL (1.20-3.40); #Monocytes 0.7 thou/uL (0.11-0.59); #Neutrophils 6.7 thou/uL (1.40-6.50); %Basophils 0.4 % (0.0-1.0); %Eosinophils 2.3 % (0.0-10.0); %Lymphocytes 13.2 % (21.0-51.0); %Monocytes 8.3 % (0.0-10.0); %Neutrophils 75.7 % (42.0-75.0); Mean Corpuscular HGB CONC 32.8 g/dL (32.0-36.0); Mean Corpuscular Hemoglobin 30.7 pg (27.0-31.0); Mean Corpuscular Volume 93.7 fL (78.0-98.0); Mean Platelet Volume 6.1 fL (7.4-10.4); Platelet Count 367 thou/uL (130-400); RBC Distribution Width 13.7 % (11.5-14.5); Red Blood Cell (RBC) Count 2.92 mill/uL (4.70-6.10); White Blood Cell (WBC) Count 8.8 thou/uL (4.8-10.8)
[2021-12-20] MEDS: HYDROcodone/Acetaminophen 10/325 mg Tablet PO PRN ×3 (05:05→20:44)
[2021-12-20 05:21] LABS: ALT (SGPT) 22 U/L (8-55); AST (SGOT) 20 U/L (5-34); Albumin 2.7 g/dL (3.4-4.8); Alkaline Phosphatase 70 U/L (40-110); Anion Gap 12 mmol/L (10-20); BUN (Urea Nitrogen) 7 mg/dL (8.4-25.7); Bilirubin, Total 0.5 mg/dL (0.2-1.2); Calc. Creatinine Clearance 142 mL/min (70-130); Calcium 8.7 mg/dL (7.8-10.44); Carbon Dioxide 26 mmol/L (23-31); Chloride 105 mmol/L (98-107); Globulin 3.2 g/dL (2.4-3.5); Glucose 105 mg/dL (80-115); Magnesium 1.9 mg/dL (1.6-2.6); Phosphorus 4.4 mg/dL (2.3-4.7); Protein, Total 5.9 g/dL (5.8-8.1); Sodium 140 mmol/L (136-145)
[2021-12-20 05:55] LABS: Potassium 2.9 mmol/L (3.5-5.1)
[2021-12-20] MEDS ORDERED: Electrolyte Replacement Protocol FS PRN (06:30)
[2021-12-20] MEDS ORDERED: Magnesium 2 GM/50 ML(in water) 2 GM in Premix Bag 1 BAG IVPB SCH (06:30)
[2021-12-20] MEDS: Potassium Chloride 40 MEQ in Premix Bag 1 BAG IVPB SCH ×2 (06:40→09:00)
[2021-12-20] MEDS: Mometasone 200 MCG/Formoterol 5 MCG 120 PUFF INHALER INH SCH ×2 (06:56→23:10)
[2021-12-20] MEDS: Acetaminophen/Codeine 30-300mg Tablet PO PRN (08:58)
[2021-12-20] MEDS: Potassium Bicarbonate/Cit Ac 20 MEQ TAB PO SCH ×2 (08:59→17:45)
[2021-12-20] MEDS: Gabapentin 400 MG CAP PO SCH ×3 (09:00→20:40)
[2021-12-20] MEDS: cefTRIAXone\\ROCEPHIN 2 GM in Sodium Chloride 0.9% 100 ML IVPB SCH ×2 (09:00→20:38)
[2021-12-20] MEDS: Flecainide 50 MG TAB PO SCH ×2 (09:00→20:41)
[2021-12-20] MEDS: Polyethylene Glycol 3350 17 GM Packet PO SCH (09:00)
[2021-12-20] MEDS: Apixaban 5 MG TAB PO SCH ×2 (09:00→20:41)
[2021-12-20] MEDS: Senokot S 8.6-50 MG TAB PO SCH ×2 (09:00→20:40)
[2021-12-20] MEDS: Saccharomyces boulardii 250 MG CAP PO SCH (09:00)
[2021-12-20] MEDS: Cyclobenzaprine 10 MG TAB PO PRN (14:30)
[2021-12-20 19:19] LABS: Potassium 3.9 mmol/L (3.5-5.1)
[2021-12-20] MEDS: Aspirin Chewable 81 MG TAB PO SCH (20:39)
[2021-12-20] MEDS: traZODone HCl 150 MG TAB PO SCH (20:39)
[2021-12-20] MEDS: Citalopram 20 MG TAB PO SCH (20:40)
[2021-12-20] MEDS: Atorvastatin Calcium 10 MG TAB PO SCH (20:41)
[2021-12-21] MEDS: AMPicillin 2 GM in Sodium Chloride 0.9% 100 ML IVPB SCH ×6 (01:08→21:41)
[2021-12-21] MEDS: Acetaminophen/Codeine 30-300mg Tablet PO PRN ×2 (01:30→14:22)
[2021-12-21] MEDS: HYDROcodone/Acetaminophen 10/325 mg Tablet PO PRN ×4 (04:34→23:33)
[2021-12-21 04:52] LABS: #Eosinphils 0.3 thou/uL (0.0-0.7); #Lymphocytes 1.4 thou/uL (1.20-3.40); #Monocytes 0.7 thou/uL (0.11-0.59); #Neutrophils 5.4 thou/uL (1.40-6.50); %Basophils 0.2 % (0.0-1.0); %Eosinophils 3.9 % (0.0-10.0); %Monocytes 8.6 % (0.0-10.0); %Neutrophils 69.3 % (42.0-75.0); Hemoglobin 8.7 g/dL (14.0-18.0); Mean Corpuscular HGB CONC 31.6 g/dL (32.0-36.0); Mean Corpuscular Hemoglobin 29.8 pg (27.0-31.0); Mean Corpuscular Volume 94.5 fL (78.0-98.0); Mean Platelet Volume 5.9 fL (7.4-10.4); Platelet Count 349 thou/uL (130-400); RBC Distribution Width 13.7 % (11.5-14.5); White Blood Cell (WBC) Count 7.8 thou/uL (4.8-10.8)
[2021-12-21 05:08] LABS: ALT (SGPT) 24 U/L (8-55); AST (SGOT) 19 U/L (5-34); Albumin 2.6 g/dL (3.4-4.8); Alkaline Phosphatase 67 U/L (40-110); Anion Gap 12 mmol/L (10-20); BUN (Urea Nitrogen) 5 mg/dL (8.4-25.7); Bilirubin, Total 0.3 mg/dL (0.2-1.2); Calc. Creatinine Clearance 145 mL/min (70-130); Calcium 8.5 mg/dL (7.8-10.44); Carbon Dioxide 28 mmol/L (23-31); Chloride 105 mmol/L (98-107); Globulin 2.8 g/dL (2.4-3.5); Glucose 86 mg/dL (80-115); Magnesium 2.2 mg/dL (1.6-2.6); Potassium 4.2 mmol/L (3.5-5.1); Protein, Total 5.4 g/dL (5.8-8.1); Sodium 141 mmol/L (136-145)
[2021-12-21] MEDS: Mometasone 200 MCG/Formoterol 5 MCG 120 PUFF INHALER INH SCH ×2 (06:56→22:47)
[2021-12-21] MEDS: Albuterol Sulfate 2.5 mg/3 ml Neb NEB SCH ×3 (06:58→22:47)
[2021-12-21] MEDS: Polyethylene Glycol 3350 17 GM Packet PO SCH ×3 (10:09→21:56)
[2021-12-21] MEDS: Potassium Bicarbonate/Cit Ac 20 MEQ TAB PO SCH (10:09)
[2021-12-21] MEDS: Senokot S 8.6-50 MG TAB PO SCH ×2 (10:10→21:35)
[2021-12-21] MEDS: Furosemide 40 MG TAB PO SCH (10:10)
[2021-12-21] MEDS: Gabapentin 400 MG CAP PO SCH ×3 (10:11→21:34)
[2021-12-21] MEDS: Flecainide 50 MG TAB PO SCH ×2 (10:11→21:34)
[2021-12-21] MEDS: Apixaban 5 MG TAB PO SCH ×2 (10:11→21:34)
[2021-12-21] MEDS: Saccharomyces boulardii 250 MG CAP PO SCH (10:13)
[2021-12-21] MEDS: cefTRIAXone\\ROCEPHIN 2 GM in Sodium Chloride 0.9% 100 ML IVPB SCH ×2 (10:14→21:39)
[2021-12-21] MEDS: Cyclobenzaprine 10 MG TAB PO PRN ×2 (11:10→21:33)
[2021-12-21] MEDS: traZODone HCl 150 MG TAB PO SCH (21:32)
[2021-12-21] MEDS: Citalopram 20 MG TAB PO SCH (21:33)
[2021-12-21] MEDS: Aspirin Chewable 81 MG TAB PO SCH (21:35)
[2021-12-21] MEDS: Atorvastatin Calcium 10 MG TAB PO SCH (21:35)
[2021-12-22] MEDS: AMPicillin 2 GM in Sodium Chloride 0.9% 100 ML IVPB SCH ×6 (00:57→22:10)
[2021-12-22 06:50] LABS: #Basophils 0.1 thou/uL (0.0-0.2); #Eosinphils 0.3 thou/uL (0.0-0.7); #Lymphocytes 1.2 thou/uL (1.20-3.40); #Monocytes 0.6 thou/uL (0.11-0.59); #Neutrophils 4.5 thou/uL (1.40-6.50); %Basophils 0.8 % (0.0-1.0); %Eosinophils 4.9 % (0.0-10.0); %Lymphocytes 18.4 % (21.0-51.0); %Monocytes 8.9 % (0.0-10.0); Hemoglobin 9.3 g/dL (14.0-18.0); Mean Corpuscular HGB CONC 31.3 g/dL (32.0-36.0); Mean Corpuscular Hemoglobin 29.4 pg (27.0-31.0); Mean Corpuscular Volume 93.9 fL (78.0-98.0); Mean Platelet Volume 5.8 fL (7.4-10.4); Platelet Count 345 thou/uL (130-400); RBC Distribution Width 13.8 % (11.5-14.5); Red Blood Cell (RBC) Count 3.17 mill/uL (4.70-6.10); White Blood Cell (WBC) Count 6.7 thou/uL (4.8-10.8)
[2021-12-22 07:05] LABS: Anion Gap 10 mmol/L (10-20); BUN (Urea Nitrogen) 5 mg/dL (8.4-25.7); Calc. Creatinine Clearance 139 mL/min (70-130); Calcium 8.7 mg/dL (7.8-10.44); Carbon Dioxide 32 mmol/L (23-31); Chloride 103 mmol/L (98-107); Glucose 85 mg/dL (80-115); Potassium 4.1 mmol/L (3.5-5.1); Sodium 141 mmol/L (136-145)
[2021-12-22] MEDS: Albuterol Sulfate 2.5 mg/3 ml Neb NEB SCH ×3 (07:20→23:42)
[2021-12-22] MEDS: Mometasone 200 MCG/Formoterol 5 MCG 120 PUFF INHALER INH SCH ×2 (07:21→19:28)
[2021-12-22] MEDS ORDERED: PROPOFOL 20 ML ONE (08:44)
[2021-12-22] MEDS ORDERED: PROPOFOL 200 MG/20 ML VIAL ONE (09:10)
[2021-12-22] MEDS: Saccharomyces boulardii 250 MG CAP PO SCH (10:48)
[2021-12-22] MEDS: Cyclobenzaprine 10 MG TAB PO PRN ×2 (10:48→17:08)
[2021-12-22] MEDS: Senokot S 8.6-50 MG TAB PO SCH ×2 (10:48→22:13)
[2021-12-22] MEDS: Apixaban 5 MG TAB PO SCH (10:49)
[2021-12-22] MEDS: Flecainide 50 MG TAB PO SCH ×2 (10:49→22:12)
[2021-12-22] MEDS: cefTRIAXone\\ROCEPHIN 2 GM in Sodium Chloride 0.9% 100 ML IVPB SCH ×2 (10:49→22:12)
[2021-12-22] MEDS: Furosemide 40 MG TAB PO SCH (10:49)
[2021-12-22] MEDS: Gabapentin 400 MG CAP PO SCH ×3 (10:50→22:11)
[2021-12-22] MEDS: Potassium Bicarbonate/Cit Ac 20 MEQ TAB PO SCH (10:52)
[2021-12-22] MEDS: Polyethylene Glycol 3350 17 GM Packet PO SCH ×2 (10:53→22:12)
[2021-12-22] MEDS: HYDROcodone/Acetaminophen 10/325 mg Tablet PO PRN (10:54)
[2021-12-22] MEDS ORDERED: Lorazepam 1 MG TAB PO PRN (15:01)
[2021-12-22] MEDS: traZODone HCl 150 MG TAB PO SCH (22:11)
[2021-12-22] MEDS: Atorvastatin Calcium 10 MG TAB PO SCH (22:12)
[2021-12-22] MEDS: Citalopram 20 MG TAB PO SCH (22:12)
[2021-12-22] MEDS: Aspirin Chewable 81 MG TAB PO SCH (22:12)
[2021-12-23] MEDS: AMPicillin 2 GM in Sodium Chloride 0.9% 100 ML IVPB SCH ×6 (00:45→21:02)
[2021-12-23] MEDS: HYDROcodone/Acetaminophen 10/325 mg Tablet PO PRN ×3 (04:54→21:00)
[2021-12-23 05:51] LABS: #Eosinphils 0.2 thou/uL (0.0-0.7); #Lymphocytes 1.3 thou/uL (1.20-3.40); #Monocytes 1.1 thou/uL (0.11-0.59); #Neutrophils 8.5 thou/uL (1.40-6.50); %Basophils 0.2 % (0.0-1.0); %Eosinophils 1.8 % (0.0-10.0); %Lymphocytes 11.5 % (21.0-51.0); %Monocytes 9.7 % (0.0-10.0); %Neutrophils 76.8 % (42.0-75.0); Hemoglobin 9.5 g/dL (14.0-18.0); Mean Corpuscular Hemoglobin 29.5 pg (27.0-31.0); Mean Corpuscular Volume 92.3 fL (78.0-98.0); Mean Platelet Volume 5.7 fL (7.4-10.4); Platelet Count 346 thou/uL (130-400); Red Blood Cell (RBC) Count 3.23 mill/uL (4.70-6.10)
[2021-12-23 06:32] LABS: Anion Gap 13 mmol/L (10-20); BUN (Urea Nitrogen) 6 mg/dL (8.4-25.7); Calc. Creatinine Clearance 128 mL/min (70-130); Calcium 9.1 mg/dL (7.8-10.44); Carbon Dioxide 27 mmol/L (23-31); Chloride 101 mmol/L (98-107); Glucose 105 mg/dL (80-115); Magnesium 2.1 mg/dL (1.6-2.6); Potassium 4.1 mmol/L (3.5-5.1); Sodium 137 mmol/L (136-145)
[2021-12-23] MEDS: Albuterol Sulfate 2.5 mg/3 ml Neb NEB SCH ×3 (07:16→22:26)
[2021-12-23] MEDS: Mometasone 200 MCG/Formoterol 5 MCG 120 PUFF INHALER INH SCH ×2 (07:16→22:26)
[2021-12-23] MEDS: Flecainide 50 MG TAB PO SCH ×2 (08:21→20:59)
[2021-12-23] MEDS: Senokot S 8.6-50 MG TAB PO SCH ×2 (08:21→21:00)
[2021-12-23] MEDS: Polyethylene Glycol 3350 17 GM Packet PO SCH ×2 (08:21→21:00)
[2021-12-23] MEDS: Furosemide 40 MG TAB PO SCH (08:21)
[2021-12-23] MEDS: Saccharomyces boulardii 250 MG CAP PO SCH (08:21)
[2021-12-23] MEDS: Gabapentin 400 MG CAP PO SCH ×3 (08:22→20:59)
[2021-12-23] MEDS: Potassium Bicarbonate/Cit Ac 20 MEQ TAB PO SCH (08:22)
[2021-12-23] MEDS: cefTRIAXone\\ROCEPHIN 2 GM in Sodium Chloride 0.9% 100 ML IVPB SCH ×2 (08:22→21:02)
[2021-12-23] MEDS: Acetaminophen/Codeine 30-300mg Tablet PO PRN ×2 (08:24→18:44)
[2021-12-23] MEDS: Cyclobenzaprine 10 MG TAB PO PRN ×2 (14:15→18:45)
[2021-12-23] MEDS: Atorvastatin Calcium 10 MG TAB PO SCH (20:58)
[2021-12-23] MEDS: Aspirin Chewable 81 MG TAB PO SCH (20:58)
[2021-12-23] MEDS: Citalopram 20 MG TAB PO SCH (20:59)
[2021-12-23] MEDS: traZODone HCl 150 MG TAB PO SCH (21:00)
[2021-12-24] MEDS: AMPicillin 2 GM in Sodium Chloride 0.9% 100 ML IVPB SCH ×6 (02:06→21:20)
[2021-12-24] MEDS: HYDROcodone/Acetaminophen 10/325 mg Tablet PO PRN ×3 (04:17→17:52)
[2021-12-24 04:57] LABS: #Eosinphils 0.1 thou/uL (0.0-0.7); #Lymphocytes 1.1 thou/uL (1.20-3.40); #Monocytes 1.3 thou/uL (0.11-0.59); #Neutrophils 11.5 thou/uL (1.40-6.50); %Basophils 0.1 % (0.0-1.0); %Eosinophils 0.7 % (0.0-10.0); %Monocytes 9.4 % (0.0-10.0); %Neutrophils 81.8 % (42.0-75.0); Hemoglobin 9.5 g/dL (14.0-18.0); Mean Corpuscular HGB CONC 32.3 g/dL (32.0-36.0); Mean Corpuscular Hemoglobin 29.9 pg (27.0-31.0); Mean Corpuscular Volume 92.6 fL (78.0-98.0); Mean Platelet Volume 5.9 fL (7.4-10.4); Platelet Count 333 thou/uL (130-400); RBC Distribution Width 14.5 % (11.5-14.5); Red Blood Cell (RBC) Count 3.19 mill/uL (4.70-6.10); White Blood Cell (WBC) Count 14.1 thou/uL (4.8-10.8)
[2021-12-24 05:16] LABS: Anion Gap 12 mmol/L (10-20); BUN (Urea Nitrogen) 7 mg/dL (8.4-25.7); Calc. Creatinine Clearance 131 mL/min (70-130); Carbon Dioxide 28 mmol/L (23-31); Chloride 99 mmol/L (98-107); Glucose 110 mg/dL (80-115); Potassium 4.2 mmol/L (3.5-5.1); Sodium 135 mmol/L (136-145)
[2021-12-24] MEDS: Mometasone 200 MCG/Formoterol 5 MCG 120 PUFF INHALER INH SCH ×2 (06:44→23:04)
[2021-12-24] MEDS: Albuterol Sulfate 2.5 mg/3 ml Neb NEB SCH ×3 (06:44→23:05)
[2021-12-24] MEDS: Saccharomyces boulardii 250 MG CAP PO SCH (08:59)
[2021-12-24] MEDS: Furosemide 40 MG TAB PO SCH (08:59)
[2021-12-24] MEDS: Polyethylene Glycol 3350 17 GM Packet PO SCH ×2 (08:59→20:57)
[2021-12-24] MEDS: Flecainide 50 MG TAB PO SCH ×2 (08:59→20:58)
[2021-12-24] MEDS: Senokot S 8.6-50 MG TAB PO SCH ×2 (08:59→21:00)
[2021-12-24] MEDS: Gabapentin 400 MG CAP PO SCH ×3 (09:00→20:58)
[2021-12-24] MEDS: cefTRIAXone\\ROCEPHIN 2 GM in Sodium Chloride 0.9% 100 ML IVPB SCH ×2 (09:00→21:02)
[2021-12-24] MEDS: Potassium Bicarbonate/Cit Ac 20 MEQ TAB PO SCH (09:00)
[2021-12-24] MEDS: Cyclobenzaprine 10 MG TAB PO PRN ×3 (09:02→17:52)
[2021-12-24] MEDS: Acetaminophen/Codeine 30-300mg Tablet PO PRN (09:02)
[2021-12-24] MEDS ORDERED: CEFAZOLIN 1 GM VIAL ONE (12:50)
[2021-12-24] MEDS ORDERED: Gentamicin 80 MG/100 ML BAG ONE (12:50)
[2021-12-24] MEDS ORDERED: Lidocaine 1% (PF) 30 ML VIAL ONE (12:51)
[2021-12-24] MEDS ORDERED: Propofol 1,000 MG/100 ML VIAL IV ONE (13:32)
[2021-12-24] MEDS ORDERED: Fentanyl 100 MCG/2 ML VIAL ONE (14:00)
[2021-12-24] MEDS ORDERED: Albuterol Sulfate 2.5 mg/3 ml Neb NEB PRN (17:12)
[2021-12-24] MEDS ORDERED: Acetaminophen/Codeine 30-300mg Tablet PO PRN (17:12)
[2021-12-24] MEDS ORDERED: Electrolyte Replacement Protocol FS PRN (17:15)
[2021-12-24] MEDS: traZODone HCl 150 MG TAB PO SCH (20:58)
[2021-12-24] MEDS: Citalopram 20 MG TAB PO SCH (20:59)
[2021-12-24] MEDS ORDERED: Aspirin Chewable 81 MG TAB PO SCH (21:00)
[2021-12-24] MEDS ORDERED: Bisacodyl 10 MG SUPP PR SCH (21:00)
[2021-12-24] MEDS: Atorvastatin Calcium 10 MG TAB PO SCH (21:01)
[2021-12-24] MEDS: Bisacodyl 10 MG SUPP PR SCH (21:29)
[2021-12-25 04:12] LABS: #Eosinphils 0.1 thou/uL (0.0-0.7); #Monocytes 1.3 thou/uL (0.11-0.59); #Neutrophils 10.9 thou/uL (1.40-6.50); %Basophils 0.3 % (0.0-1.0); %Eosinophils 0.7 % (0.0-10.0); %Lymphocytes 7.8 % (21.0-51.0); %Monocytes 9.9 % (0.0-10.0); %Neutrophils 81.3 % (42.0-75.0); Hemoglobin 9.5 g/dL (14.0-18.0); Mean Corpuscular HGB CONC 32.4 g/dL (32.0-36.0); Mean Corpuscular Hemoglobin 29.8 pg (27.0-31.0); Mean Platelet Volume 5.8 fL (7.4-10.4); Platelet Count 308 thou/uL (130-400); RBC Distribution Width 14.4 % (11.5-14.5); Red Blood Cell (RBC) Count 3.17 mill/uL (4.70-6.10); White Blood Cell (WBC) Count 13.4 thou/uL (4.8-10.8)
[2021-12-25] MEDS: AMPicillin 2 GM in Sodium Chloride 0.9% 100 ML IVPB SCH ×2 (04:19→05:41)
[2021-12-25 04:30] LABS: Anion Gap 13 mmol/L (10-20); BUN (Urea Nitrogen) 9 mg/dL (8.4-25.7); Calc. Creatinine Clearance 134 mL/min (70-130); Calcium 9.1 mg/dL (7.8-10.44); Carbon Dioxide 27 mmol/L (23-31); Chloride 98 mmol/L (98-107); Glucose 108 mg/dL (80-115); Potassium 3.9 mmol/L (3.5-5.1); Sodium 134 mmol/L (136-145)
[2021-12-25] MEDS: Mometasone 200 MCG/Formoterol 5 MCG 120 PUFF INHALER INH SCH ×2 (07:03→23:00)
[2021-12-25] MEDS: Albuterol Sulfate 2.5 mg/3 ml Neb NEB SCH ×3 (07:04→23:00)
[2021-12-25] MEDS ORDERED: Bisacodyl 10 MG SUPP PR SCH (09:00)
[2021-12-25] MEDS: Senokot S 8.6-50 MG TAB PO SCH ×2 (09:15→20:07)
[2021-12-25] MEDS: Gabapentin 400 MG CAP PO SCH ×3 (09:16→20:07)
[2021-12-25] MEDS: Saccharomyces boulardii 250 MG CAP PO SCH (09:16)
[2021-12-25] MEDS: Furosemide 40 MG TAB PO SCH (09:16)
[2021-12-25] MEDS: Flecainide 50 MG TAB PO SCH ×2 (09:16→20:08)
[2021-12-25] MEDS: Polyethylene Glycol 3350 17 GM Packet PO SCH ×2 (09:17→20:06)
[2021-12-25] MEDS: Potassium Bicarbonate/Cit Ac 20 MEQ TAB PO SCH (09:17)
[2021-12-25] MEDS: Ampicillin 2 GM in Sodium Chloride 0.9% 100 ML IVPB SCH ×4 (09:17→20:05)
[2021-12-25] MEDS: cefTRIAXone\\ROCEPHIN 2 GM in Sodium Chloride 0.9% 100 ML IVPB SCH ×2 (09:17→22:03)
[2021-12-25] MEDS: Cyclobenzaprine 10 MG TAB PO PRN ×2 (09:19→16:12)
[2021-12-25] MEDS: HYDROcodone/Acetaminophen 10/325 mg Tablet PO PRN (09:20)
[2021-12-25] MEDS ORDERED: Flecainide 50 MG TAB PO SCH (11:15)
[2021-12-25] MEDS ORDERED: Clopidogrel Bisulfate 75 MG TAB PO SCH (14:45)
[2021-12-25] MEDS: Citalopram 20 MG TAB PO SCH (20:06)
[2021-12-25] MEDS: Atorvastatin Calcium 10 MG TAB PO SCH (20:07)
[2021-12-25] MEDS: traZODone HCl 150 MG TAB PO SCH (20:08)
[2021-12-25] MEDS: Metoprolol Tartrate 50 MG TAB PO SCH (20:08)
[2021-12-25] MEDS ORDERED: Apixaban 5 MG TAB PO SCH (21:00)
[2021-12-26] MEDS: Metoprolol Tartrate 50 MG TAB PO SCH ×2 (00:01→09:05)
[2021-12-26] MEDS: Bisacodyl 10 MG SUPP PR SCH (00:02)
[2021-12-26] MEDS: Ampicillin 2 GM in Sodium Chloride 0.9% 100 ML IVPB SCH ×4 (00:12→11:21)
[2021-12-26] MEDS: Albuterol Sulfate 2.5 mg/3 ml Neb NEB SCH (07:39)
[2021-12-26] MEDS: Mometasone 200 MCG/Formoterol 5 MCG 120 PUFF INHALER INH SCH (07:46)
[2021-12-26] MEDS ORDERED: Clopidogrel Bisulfate 75 MG TAB PO SCH (09:00)
[2021-12-26] MEDS: Potassium Bicarbonate/Cit Ac 20 MEQ TAB PO SCH (09:02)
[2021-12-26] MEDS: Polyethylene Glycol 3350 17 GM Packet PO SCH (09:02)
[2021-12-26] MEDS: Furosemide 40 MG TAB PO SCH (09:03)
[2021-12-26] MEDS: Saccharomyces boulardii 250 MG CAP PO SCH (09:04)
[2021-12-26] MEDS: Gabapentin 400 MG CAP PO SCH (09:04)
[2021-12-26] MEDS: Senokot S 8.6-50 MG TAB PO SCH (09:04)
[2021-12-26] MEDS: Flecainide 50 MG TAB PO SCH (09:05)
[2021-12-26] MEDS: HYDROcodone/Acetaminophen 10/325 mg Tablet PO PRN (11:15)
[2021-12-26] MEDS: Cyclobenzaprine 10 MG TAB PO PRN (11:16)
[2021-12-26 11:44] VITALS: BP 108/56; TEMP 98.5
[2021-12-26] MEDS: cefTRIAXone\\ROCEPHIN 2 GM in Sodium Chloride 0.9% 100 ML IVPB SCH (12:07)
== END 2021-12-26 14:35 | disposition home health service (06) | DRG 853 ==
LOC: ERS 12:32 → 2NO 19:22
PROVIDERS: ADMIT Student in an Organized Health Care Education/Training Program; ATTEND Internal Medicine
PROC: 3E03329 Introduction of Other Anti-infective into Peripheral Vein, Percutaneous Approach (ICD-10-PCS; 2021-12-18)
PROC: 02HV33Z Insertion of Infusion Device into Superior Vena Cava, Percutaneous Approach (ICD-10-PCS; 2021-12-19)
PROC: B548ZZA Ultrasonography of Superior Vena Cava, Guidance (ICD-10-PCS; 2021-12-19)
PROC: B5181ZA Fluoroscopy of Superior Vena Cava using Low Osmolar Contrast, Guidance (ICD-10-PCS; 2021-12-19)
PROC: B24BZZ4 Ultrasonography of Heart with Aorta, Transesophageal (ICD-10-PCS; principal; 2021-12-22)
PROC: 02PA0MZ Removal of Cardiac Lead from Heart, Open Approach (ICD-10-PCS; 2021-12-24)
PROC: 0JPT0PZ Removal of Cardiac Rhythm Related Device from Trunk Subcutaneous Tissue and Fascia, Open Approach (ICD-10-PCS; 2021-12-24)
DX: A41.81 Sepsis due to Enterococcus (principal); I33.0 Acute and subacute infective endocarditis; J96.01 Acute respiratory failure with hypoxia; I50.33 Acute on chronic diastolic (congestive) heart failure; I21.A1 Myocardial infarction type 2; M46.27 Osteomyelitis of vertebra, lumbosacral region; T82.7XXA Infection and inflammatory reaction due to other cardiac and vascular devices, implants and grafts, initial encounter; E87.1 Hypo-osmolality and hyponatremia; G93.40 Encephalopathy, unspecified; Z20.822 Contact with and (suspected) exposure to COVID-19; R65.20 Severe sepsis without septic shock; I11.0 Hypertensive heart disease with heart failure; J44.9 Chronic obstructive pulmonary disease, unspecified; M47.816 Spondylosis without myelopathy or radiculopathy, lumbar region; M46.47 Discitis, unspecified, lumbosacral region; I34.0 Nonrheumatic mitral (valve) insufficiency; Y83.8 Other surgical procedures as the cause of abnormal reaction of the patient, or of later complication, without mention of misadventure at the time of the procedure; R33.9 Retention of urine, unspecified; F41.9 Anxiety disorder, unspecified; I48.0 Paroxysmal atrial fibrillation; E87.6 Hypokalemia; E83.42 Hypomagnesemia; I25.10 Atherosclerotic heart disease of native coronary artery without angina pectoris; G89.4 Chronic pain syndrome; K59.09 Other constipation; E78.5 Hyperlipidemia, unspecified; Z88.8 Allergy status to other drugs, medicaments and biological substances; Z79.01 Long term (current) use of anticoagulants; Z87.820 Personal history of traumatic brain injury; Z99.81 Dependence on supplemental oxygen; Z87.440 Personal history of urinary (tract) infections; Z87.891 Personal history of nicotine dependence
CPT/HCPCS: 33241; 33244; 36415; 36569; 36600; 51701; 71045; 72148; 74177; 80048; 80053; 81003; 82553; 82805; 83605; 83735; 84100; 84484; 85025; 86140; 87040; 87070; 87077; 87086; 87149; 87186; 87205; 93005; 93010; 93312; 94640; 96365; 96366; 96368; C1751; J0290; J0690; J0692; J0696; J1580; J1644; J1940; J2001; J2704; J3010; J3370; J3475; J3480; J3490; J7050; J7611; Q9967; U0003; U0005

== ENCOUNTER 2021-12-26 18:39 | Inpatient (IN) | payer MEDICARE, OTHER ==
[~2021-12-26 18:39] MED LIST changes: +Gadobenate Dimeglumine 529 MG/1 ML (20ML VIAL) ONE; -Iopamidol-370 76% 500 ML 1 ML ONE
[2021-12-26] MEDS ORDERED: cefTRIAXone\\ROCEPHIN 2 GM VIAL ONE (19:13)
[2021-12-26 19:32] LABS: #Eosinphils 0.1 thou/uL (0.0-0.7); #Monocytes 0.8 thou/uL (0.11-0.59); #Neutrophils 11.6 thou/uL (1.40-6.50); %Basophils 0.2 % (0.0-1.0); %Eosinophils 0.8 % (0.0-10.0); %Lymphocytes 7.7 % (21.0-51.0); %Monocytes 5.8 % (0.0-10.0); %Neutrophils 85.6 % (42.0-75.0); Hemoglobin 9.2 g/dL (14.0-18.0); Mean Corpuscular HGB CONC 32.2 g/dL (32.0-36.0); Mean Corpuscular Hemoglobin 29.5 pg (27.0-31.0); Mean Corpuscular Volume 91.6 fL (78.0-98.0); Mean Platelet Volume 6.1 fL (7.4-10.4); Platelet Count 330 thou/uL (130-400); RBC Distribution Width 14.4 % (11.5-14.5); Red Blood Cell (RBC) Count 3.13 mill/uL (4.70-6.10); White Blood Cell (WBC) Count 13.6 thou/uL (4.8-10.8)
[2021-12-26 19:56] LABS: ALT (SGPT) 22 U/L (8-55); AST (SGOT) 29 U/L (5-34); Albumin 3.2 g/dL (3.4-4.8); Alkaline Phosphatase 79 U/L (40-110); Anion Gap 16 mmol/L (10-20); BUN (Urea Nitrogen) 12 mg/dL (8.4-25.7); Bilirubin, Total 0.7 mg/dL (0.2-1.2); Calc. Creatinine Clearance 0 mL/min (70-130); Calcium 9.1 mg/dL (7.8-10.44); Carbon Dioxide 26 mmol/L (23-31); Chloride 97 mmol/L (98-107); Globulin 4.2 g/dL (2.4-3.5); Glucose 117 mg/dL (80-115); Lipase 23 U/L (8-78); Magnesium 1.9 mg/dL (1.6-2.6); Potassium 3.5 mmol/L (3.5-5.1); Protein, Total 7.4 g/dL (5.8-8.1); Sodium 135 mmol/L (136-145)
[2021-12-26 20:16] LABS: CKMB 0.6 ng/mL (0-6.6)
[2021-12-26] MEDS ORDERED: Vancomycin 1 GM/200 ML BAG ONE (20:53)
[2021-12-26] MEDS ORDERED: Ondansetron ODT 4 MG TAB PO PRN (21:30)
[2021-12-26] MEDS ORDERED: hydrALAZINE 20 MG/ML VIAL SLOW IVP PRN (21:30)
[2021-12-26] MEDS ORDERED: Fluticasone Propionate Nasal Spray 16 gm Bottle NASAL PRN (21:30)
[2021-12-26] MEDS ORDERED: Ondansetron PF 4 MG/2 ML Vial IVP PRN (21:30)
[2021-12-26 22:59] LABS: Troponin I 0.067 ng/mL (< 0.028)
[2021-12-26 23:20] VITALS: BMI 28.8
[2021-12-26] MEDS ORDERED: Apixaban 5 MG TAB PO SCH (23:30)
[2021-12-27] MEDS: HYDROcodone/Acetaminophen 10/325 mg Tablet PO PRN (00:11)
[2021-12-27] MEDS ORDERED: Ampicillin 2 GM in Sodium Chloride 0.9% 100 ML IVPB SCH (01:00)
[2021-12-27 01:38] LABS: Troponin I 0.058 ng/mL (< 0.028)
[2021-12-27] MEDS ORDERED: Gabapentin 400 MG CAP PO SCH (01:45)
[2021-12-27] MEDS: Cyclobenzaprine 10 MG TAB PO PRN (05:00)
[2021-12-27] MEDS: Ampicillin 2 GM in Sodium Chloride 0.9% 100 ML IVPB SCH ×5 (05:00→20:12)
[2021-12-27 05:15] LABS: #Basophils 0.1 thou/uL (0.0-0.2); #Eosinphils 0.1 thou/uL (0.0-0.7); #Lymphocytes 1.1 thou/uL (1.20-3.40); #Monocytes 0.8 thou/uL (0.11-0.59); #Neutrophils 9.3 thou/uL (1.40-6.50); %Basophils 0.7 % (0.0-1.0); %Eosinophils 0.7 % (0.0-10.0); %Lymphocytes 9.9 % (21.0-51.0); %Monocytes 6.8 % (0.0-10.0); %Neutrophils 81.9 % (42.0-75.0); Hemoglobin 8.7 g/dL (14.0-18.0); Mean Corpuscular HGB CONC 32.2 g/dL (32.0-36.0); Mean Corpuscular Hemoglobin 29.7 pg (27.0-31.0); Mean Corpuscular Volume 92.4 fL (78.0-98.0); Mean Platelet Volume 6.1 fL (7.4-10.4); Platelet Count 298 thou/uL (130-400); RBC Distribution Width 14.2 % (11.5-14.5); Red Blood Cell (RBC) Count 2.92 mill/uL (4.70-6.10); White Blood Cell (WBC) Count 11.4 thou/uL (4.8-10.8)
[2021-12-27 05:34] LABS: ALT (SGPT) 18 U/L (8-55); AST (SGOT) 22 U/L (5-34); Alkaline Phosphatase 73 U/L (40-110); Anion Gap 14 mmol/L (10-20); BUN (Urea Nitrogen) 9 mg/dL (8.4-25.7); Bilirubin, Total 0.8 mg/dL (0.2-1.2); Calc. Creatinine Clearance 129 mL/min (70-130); Calcium 8.8 mg/dL (7.8-10.44); Carbon Dioxide 23 mmol/L (23-31); Chloride 100 mmol/L (98-107); Globulin 3.8 g/dL (2.4-3.5); Glucose 103 mg/dL (80-115); Potassium 3.2 mmol/L (3.5-5.1); Protein, Total 6.8 g/dL (5.8-8.1); Sodium 134 mmol/L (136-145)
[2021-12-27] MEDS: Mometasone 200 MCG/Formoterol 5 MCG 120 PUFF INHALER INH SCH ×2 (07:43→20:07)
[2021-12-27] MEDS: Gabapentin 400 MG CAP PO SCH ×3 (09:20→20:13)
[2021-12-27] MEDS: Cholecalciferol 1,000 UNITS (25 MCG) TAB PO SCH (09:21)
[2021-12-27] MEDS: Flecainide 50 MG TAB PO SCH ×2 (09:21→20:14)
[2021-12-27] MEDS: Famotidine 20 MG TAB PO SCH ×2 (09:21→20:13)
[2021-12-27] MEDS: Saccharomyces boulardii 250 MG CAP PO SCH (09:21)
[2021-12-27] MEDS: Ascorbic Acid 500 mg Chewable Tablet PO SCH (09:21)
[2021-12-27] MEDS: Apixaban 5 MG TAB PO SCH ×2 (09:22→20:13)
[2021-12-27] MEDS: cefTRIAXone\\ROCEPHIN 2 GM in Sodium Chloride 0.9% 100 ML IVPB SCH ×2 (09:22→21:25)
[2021-12-27] MEDS: Lidocaine 5% Patch TD SCH (09:22)
[2021-12-27] MEDS: Polyethylene Glycol 3350 17 GM Packet PO SCH ×2 (09:22→21:25)
[2021-12-27] MEDS: Stress 600 With Zinc 1 TAB PO SCH (11:08)
[2021-12-27] MEDS: Potassium Chloride 20 MEQ TAB PO SCH ×2 (11:09→14:16)
[2021-12-27] MEDS: Acetaminophen 500 MG TAB PO PRN (14:15)
[2021-12-27] MEDS ORDERED: Melatonin 3 MG TAB PO PRN (19:04)
[2021-12-27] MEDS ORDERED: Metoprolol Tartrate 5 MG/5 ML VIAL ONE (19:38)
[2021-12-27] MEDS ORDERED: HYDROmorphone 0.5 MG/0.5 ML SYRINGE SLOW IVP SCH (20:00)
[2021-12-27] MEDS: Citalopram 20 MG TAB PO SCH (20:13)
[2021-12-27] MEDS: Aspirin Chewable 81 MG TAB PO SCH (20:13)
[2021-12-27] MEDS: Transdermal Patch Removal TOP SCH (21:25)
[2021-12-27] MEDS ORDERED: Metoprolol Tartrate 25 MG TAB PO SCH (22:30)
[2021-12-28] MEDS: Ampicillin 2 GM in Sodium Chloride 0.9% 100 ML IVPB SCH ×6 (00:31→20:57)
[2021-12-28] MEDS: HYDROcodone/Acetaminophen 10/325 mg Tablet PO PRN ×3 (00:41→20:57)
[2021-12-28 05:11] LABS: #Basophils 0.1 thou/uL (0.0-0.2); #Eosinphils 0.1 thou/uL (0.0-0.7); #Lymphocytes 0.9 thou/uL (1.20-3.40); #Monocytes 0.7 thou/uL (0.11-0.59); #Neutrophils 9.3 thou/uL (1.40-6.50); %Basophils 0.5 % (0.0-1.0); %Lymphocytes 8.1 % (21.0-51.0); %Monocytes 6.1 % (0.0-10.0); %Neutrophils 84.4 % (42.0-75.0); Hemoglobin 8.8 g/dL (14.0-18.0); Mean Corpuscular HGB CONC 32.6 g/dL (32.0-36.0); Mean Corpuscular Hemoglobin 29.8 pg (27.0-31.0); Mean Corpuscular Volume 91.3 fL (78.0-98.0); Mean Platelet Volume 6.1 fL (7.4-10.4); Platelet Count 295 thou/uL (130-400); RBC Distribution Width 14.2 % (11.5-14.5); Red Blood Cell (RBC) Count 2.96 mill/uL (4.70-6.10)
[2021-12-28 05:41] LABS: Anion Gap 11 mmol/L (10-20); BUN (Urea Nitrogen) 7 mg/dL (8.4-25.7); Calc. Creatinine Clearance 142 mL/min (70-130); Calcium 8.9 mg/dL (7.8-10.44); Carbon Dioxide 25 mmol/L (23-31); Chloride 103 mmol/L (98-107); Glucose 110 mg/dL (80-115); Potassium 3.4 mmol/L (3.5-5.1); Sodium 136 mmol/L (136-145)
[2021-12-28] MEDS: Cyclobenzaprine 10 MG TAB PO PRN (05:47)
[2021-12-28] MEDS: Mometasone 200 MCG/Formoterol 5 MCG 120 PUFF INHALER INH SCH ×2 (07:27→18:54)
[2021-12-28] MEDS: cefTRIAXone\\ROCEPHIN 2 GM in Sodium Chloride 0.9% 100 ML IVPB SCH ×2 (09:11→21:42)
[2021-12-28] MEDS: Lidocaine 5% Patch TD SCH (09:11)
[2021-12-28] MEDS: Ascorbic Acid 500 mg Chewable Tablet PO SCH (09:12)
[2021-12-28] MEDS: Stress 600 With Zinc 1 TAB PO SCH (09:12)
[2021-12-28] MEDS: Cholecalciferol 1,000 UNITS (25 MCG) TAB PO SCH (09:13)
[2021-12-28] MEDS: Gabapentin 400 MG CAP PO SCH ×3 (09:13→20:58)
[2021-12-28] MEDS: Famotidine 20 MG TAB PO SCH ×2 (09:13→20:59)
[2021-12-28] MEDS: Saccharomyces boulardii 250 MG CAP PO SCH (09:14)
[2021-12-28] MEDS: Apixaban 5 MG TAB PO SCH ×2 (09:14→20:58)
[2021-12-28] MEDS: Flecainide 50 MG TAB PO SCH ×2 (09:14→20:59)
[2021-12-28] MEDS: Polyethylene Glycol 3350 17 GM Packet PO SCH ×2 (09:16→20:59)
[2021-12-28] MEDS: Acetaminophen 500 MG TAB PO PRN (15:11)
[2021-12-28] MEDS: Aspirin Chewable 81 MG TAB PO SCH (20:58)
[2021-12-28] MEDS: Citalopram 20 MG TAB PO SCH (20:59)
[2021-12-28] MEDS: Transdermal Patch Removal TOP SCH (20:59)
[2021-12-28 23:22] LABS: Free T4 (Free Thyroxine) 1.06 ng/dL (0.70-1.48)
[2021-12-28 23:23] LABS: Thyroid Stimulating Hormone 0.8811 uIU/mL (0.35-4.94)
[2021-12-28] MEDS ORDERED: Metoprolol Tartrate 25 MG TAB PO SCH (23:45)
[2021-12-29] MEDS: Ampicillin 2 GM in Sodium Chloride 0.9% 100 ML IVPB SCH ×6 (00:03→20:24)
[2021-12-29] MEDS: Acetaminophen 500 MG TAB PO PRN ×2 (05:20→12:17)
[2021-12-29 05:37] LABS: #Basophils 0.1 thou/uL (0.0-0.2); #Eosinphils 0.2 thou/uL (0.0-0.7); #Monocytes 0.7 thou/uL (0.11-0.59); #Neutrophils 6.9 thou/uL (1.40-6.50); %Basophils 0.8 % (0.0-1.0); %Eosinophils 2.1 % (0.0-10.0); %Lymphocytes 11.1 % (21.0-51.0); %Monocytes 7.8 % (0.0-10.0); %Neutrophils 78.2 % (42.0-75.0); Hemoglobin 8.3 g/dL (14.0-18.0); Mean Corpuscular HGB CONC 32.4 g/dL (32.0-36.0); Mean Corpuscular Hemoglobin 29.9 pg (27.0-31.0); Mean Corpuscular Volume 92.4 fL (78.0-98.0); Mean Platelet Volume 6.3 fL (7.4-10.4); Platelet Count 340 thou/uL (130-400); RBC Distribution Width 14.2 % (11.5-14.5); Red Blood Cell (RBC) Count 2.78 mill/uL (4.70-6.10); White Blood Cell (WBC) Count 8.8 thou/uL (4.8-10.8)
[2021-12-29 05:55] LABS: Anion Gap 11 mmol/L (10-20); BUN (Urea Nitrogen) 5 mg/dL (8.4-25.7); Calc. Creatinine Clearance 142 mL/min (70-130); Calcium 8.7 mg/dL (7.8-10.44); Carbon Dioxide 27 mmol/L (23-31); Chloride 105 mmol/L (98-107); Glucose 102 mg/dL (80-115); Potassium 3.4 mmol/L (3.5-5.1); Sodium 140 mmol/L (136-145)
[2021-12-29] MEDS: Mometasone 200 MCG/Formoterol 5 MCG 120 PUFF INHALER INH SCH ×2 (07:43→19:00)
[2021-12-29] MEDS: cefTRIAXone\\ROCEPHIN 2 GM in Sodium Chloride 0.9% 100 ML IVPB SCH ×2 (08:10→20:27)
[2021-12-29] MEDS: Apixaban 5 MG TAB PO SCH ×2 (08:23→20:26)
[2021-12-29] MEDS: Saccharomyces boulardii 250 MG CAP PO SCH (08:23)
[2021-12-29] MEDS: Flecainide 50 MG TAB PO SCH ×2 (08:23→20:25)
[2021-12-29] MEDS: Gabapentin 400 MG CAP PO SCH ×3 (08:23→20:25)
[2021-12-29] MEDS: Potassium Chloride 10 MEQ TAB PO SCH (08:23)
[2021-12-29] MEDS: Metoprolol Tartrate 50 MG TAB PO SCH ×2 (08:23→20:26)
[2021-12-29] MEDS: Ascorbic Acid 500 mg Chewable Tablet PO SCH (08:24)
[2021-12-29] MEDS: Cholecalciferol 1,000 UNITS (25 MCG) TAB PO SCH (08:24)
[2021-12-29] MEDS: Lidocaine 5% Patch TD SCH (08:24)
[2021-12-29] MEDS: Famotidine 20 MG TAB PO SCH ×2 (08:24→20:25)
[2021-12-29] MEDS: Polyethylene Glycol 3350 17 GM Packet PO SCH ×2 (08:25→20:27)
[2021-12-29] MEDS: Stress 600 With Zinc 1 TAB PO SCH (08:26)
[2021-12-29 10:01] LABS: Actual Bicarbonate (HCO3a) 25.7 mEq/L (22-28); Base Excess (BEa) 2.2 mEq/L (-2.0 to +3.0); CO2 Tension 35.5 mmHg (35.0-45.0); Calcium, Ionized (arterial) 1.15 mmol/L (1.12-1.30); Carboxyhemoglobin (COHb) 0.7 gm% (0.0-3.0); Hemoglobin (Hb) 9.6 g/dL (14.0-18.0); O2 Tension (PaO2), arterial 87.5 mmHg (> 80.0); Potassium - ABG Lab 3.48 mmol/L (3.70-5.30); pH, Arterial 7.48 (7.35-7.45)
[2021-12-29] MEDS: Cyclobenzaprine 10 MG TAB PO PRN (12:17)
[2021-12-29 15:19] LABS: ALV-art Gradient 67.765 mmHg (0-20); Puncture Site RRA
[2021-12-29] MEDS: Aspirin Chewable 81 MG TAB PO SCH (20:25)
[2021-12-29] MEDS: Citalopram 20 MG TAB PO SCH (20:26)
[2021-12-29] MEDS: HYDROcodone/Acetaminophen 5/325 mg Tablet PO PRN (21:12)
[2021-12-29] MEDS: Transdermal Patch Removal TOP SCH (21:14)
[2021-12-30] MEDS: Ampicillin 2 GM in Sodium Chloride 0.9% 100 ML IVPB SCH ×5 (01:00→18:12)
[2021-12-30] MEDS: Cyclobenzaprine 10 MG TAB PO PRN ×2 (03:53→12:16)
[2021-12-30] MEDS: Acetaminophen 500 MG TAB PO PRN ×2 (03:54→12:21)
[2021-12-30 05:06] LABS: #Basophils 0.1 thou/uL (0.0-0.2); #Eosinphils 0.1 thou/uL (0.0-0.7); #Lymphocytes 1.5 thou/uL (1.20-3.40); #Monocytes 0.7 thou/uL (0.11-0.59); #Neutrophils 8.5 thou/uL (1.40-6.50); %Basophils 0.5 % (0.0-1.0); %Eosinophils 1.2 % (0.0-10.0); %Lymphocytes 13.8 % (21.0-51.0); %Monocytes 6.3 % (0.0-10.0); %Neutrophils 78.1 % (42.0-75.0); Hemoglobin 8.2 g/dL (14.0-18.0); Mean Corpuscular HGB CONC 32.4 g/dL (32.0-36.0); Mean Corpuscular Hemoglobin 29.7 pg (27.0-31.0); Mean Corpuscular Volume 91.8 fL (78.0-98.0); Mean Platelet Volume 6.2 fL (7.4-10.4); Platelet Count 383 thou/uL (130-400); RBC Distribution Width 14.8 % (11.5-14.5); Red Blood Cell (RBC) Count 2.76 mill/uL (4.70-6.10); White Blood Cell (WBC) Count 10.9 thou/uL (4.8-10.8)
[2021-12-30 06:30] LABS: Anion Gap 13 mmol/L (10-20); BUN (Urea Nitrogen) 8 mg/dL (8.4-25.7); Calc. Creatinine Clearance 124 mL/min (70-130); Carbon Dioxide 24 mmol/L (23-31); Chloride 103 mmol/L (98-107); Glucose 103 mg/dL (80-115); Potassium 3.4 mmol/L (3.5-5.1); Sodium 137 mmol/L (136-145)
[2021-12-30] MEDS: Mometasone 200 MCG/Formoterol 5 MCG 120 PUFF INHALER INH SCH (07:29)
[2021-12-30] MEDS: HYDROcodone/Acetaminophen 5/325 mg Tablet PO PRN (08:38)
[2021-12-30] MEDS: Stress 600 With Zinc 1 TAB PO SCH (08:39)
[2021-12-30] MEDS: Cholecalciferol 1,000 UNITS (25 MCG) TAB PO SCH (08:40)
[2021-12-30] MEDS: Saccharomyces boulardii 250 MG CAP PO SCH (08:40)
[2021-12-30] MEDS: Flecainide 50 MG TAB PO SCH (08:41)
[2021-12-30] MEDS: Gabapentin 400 MG CAP PO SCH ×2 (08:41→17:14)
[2021-12-30] MEDS: Apixaban 5 MG TAB PO SCH (08:42)
[2021-12-30] MEDS: Metoprolol Tartrate 50 MG TAB PO SCH (08:42)
[2021-12-30] MEDS: Potassium Chloride 10 MEQ TAB PO SCH (08:42)
[2021-12-30] MEDS: Ascorbic Acid 500 mg Chewable Tablet PO SCH (08:42)
[2021-12-30] MEDS: Polyethylene Glycol 3350 17 GM Packet PO SCH (08:44)
[2021-12-30] MEDS: Famotidine 20 MG TAB PO SCH (08:48)
[2021-12-30] MEDS: Lidocaine 5% Patch TD SCH (09:43)
[2021-12-30] MEDS: cefTRIAXone\\ROCEPHIN 2 GM in Sodium Chloride 0.9% 100 ML IVPB SCH (10:25)
[2021-12-30 17:00] VITALS: BP 132/61; TEMP 98.3
[2021-12-30] MEDS ORDERED: Meloxicam 15 MG TAB PO SCH (21:00)
== END 2021-12-30 18:12 | disposition home health service (06) | DRG 288 ==
LOC: ERS 18:39 → NEURO 21:03
PROVIDERS: ADMIT Family Medicine; ATTEND Hospitalist
PROC: 02HV33Z Insertion of Infusion Device into Superior Vena Cava, Percutaneous Approach (ICD-10-PCS; principal; 2021-12-30)
PROC: B5181ZA Fluoroscopy of Superior Vena Cava using Low Osmolar Contrast, Guidance (ICD-10-PCS; 2021-12-30)
PROC: B548ZZA Ultrasonography of Superior Vena Cava, Guidance (ICD-10-PCS; 2021-12-30)
DX: I33.0 Acute and subacute infective endocarditis (principal); G93.41 Metabolic encephalopathy; I48.20 Chronic atrial fibrillation, unspecified; M46.26 Osteomyelitis of vertebra, lumbar region; I42.9 Cardiomyopathy, unspecified; F05 Delirium due to known physiological condition; E78.5 Hyperlipidemia, unspecified; R33.9 Retention of urine, unspecified; M46.46 Discitis, unspecified, lumbar region; G89.4 Chronic pain syndrome; B95.2 Enterococcus as the cause of diseases classified elsewhere; T48.1X5A Adverse effect of skeletal muscle relaxants [neuromuscular blocking agents], initial encounter; I10 Essential (primary) hypertension; J44.9 Chronic obstructive pulmonary disease, unspecified; T43.215A Adverse effect of selective serotonin and norepinephrine reuptake inhibitors, initial encounter; T42.6X5A Adverse effect of other antiepileptic and sedative-hypnotic drugs, initial encounter; T40.2X5A Adverse effect of other opioids, initial encounter; Z20.822 Contact with and (suspected) exposure to COVID-19; Z95.0 Presence of cardiac pacemaker; Z87.820 Personal history of traumatic brain injury; Z72.89 Other problems related to lifestyle; Z87.891 Personal history of nicotine dependence; Z88.8 Allergy status to other drugs, medicaments and biological substances; Z79.899 Other long term (current) drug therapy
CPT/HCPCS: 36415; 36569; 36600; 70450; 70553; 71045; 76999; 80048; 80053; 82140; 82533; 82553; 82805; 83605; 83690; 83735; 83880; 84439; 84443; 84484; 85025; 85652; 86140; 87040; 87086; 93005; 93010; 95712; 95819; 95957; 96365; 96366; 96368; A9577; C1751; J0290; J0696; J1170; J1644; J3370; J3411; J3490; U0003; U0005

== ENCOUNTER 2022-01-02 02:46 | Inpatient (IN) | payer MEDICARE, OTHER ==
[2022-01-02 04:04] LABS: #Eosinphils 0.1 thou/uL (0.0-0.7); #Lymphocytes 1.1 thou/uL (1.20-3.40); #Monocytes 1.2 thou/uL (0.11-0.59); #Neutrophils 12.8 thou/uL (1.40-6.50); %Basophils 0.3 % (0.0-1.0); %Eosinophils 0.7 % (0.0-10.0); %Lymphocytes 7.4 % (21.0-51.0); %Monocytes 7.8 % (0.0-10.0); %Neutrophils 83.9 % (42.0-75.0); Hemoglobin 8.7 g/dL (14.0-18.0); Mean Corpuscular Hemoglobin 29.4 pg (27.0-31.0); Mean Corpuscular Volume 91.9 fL (78.0-98.0); Mean Platelet Volume 6.4 fL (7.4-10.4); Platelet Count 514 thou/uL (130-400); RBC Distribution Width 15.6 % (11.5-14.5); Red Blood Cell (RBC) Count 2.97 mill/uL (4.70-6.10); White Blood Cell (WBC) Count 15.2 thou/uL (4.8-10.8)
[2022-01-02 04:33] LABS: ALT (SGPT) 27 U/L (8-55); AST (SGOT) 23 U/L (5-34); Albumin 3.1 g/dL (3.4-4.8); Alkaline Phosphatase 84 U/L (40-110); Anion Gap 16 mmol/L (10-20); BUN (Urea Nitrogen) 10 mg/dL (8.4-25.7); Bilirubin, Total 0.5 mg/dL (0.2-1.2); Calc. Creatinine Clearance 0 mL/min (70-130); Calcium 9.2 mg/dL (7.8-10.44); Carbon Dioxide 24 mmol/L (23-31); Chloride 100 mmol/L (98-107); Globulin 4.2 g/dL (2.4-3.5); Glucose 126 mg/dL (80-115); Potassium 3.3 mmol/L (3.5-5.1); Protein, Total 7.3 g/dL (5.8-8.1); Sodium 137 mmol/L (136-145)
[2022-01-02 04:55] LABS: CKMB 1.6 ng/mL (0-6.6)
[2022-01-02] MEDS ORDERED: Furosemide 40 MG/4 ML VIAL ONE (04:58)
[2022-01-02] MEDS ORDERED: Albuterol Sulfate 2.5 mg/0.5 ml Neb ONE (05:19)
[2022-01-02] MEDS ORDERED: hydrALAZINE 20 MG/ML VIAL SLOW IVP PRN (09:37)
[2022-01-02] MEDS ORDERED: hydrALAZINE 20 MG/ML VIAL ONE (09:38)
[2022-01-02 11:16] LABS: Iron 19 ug/dL (65-175); Iron Binding Capacity, Total 255 mcg/dL (261-462)
[2022-01-02 11:21] LABS: Troponin I 0.066 ng/mL (< 0.028)
[2022-01-02] MEDS: HYDROcodone/Acetaminophen 5/325 mg Tablet PO PRN ×2 (11:53→18:59)
[2022-01-02] MEDS: cefTRIAXone\\ROCEPHIN 2 GM in Sodium Chloride 0.9% 100 ML IVPB SCH ×2 (11:55→20:54)
[2022-01-02] MEDS ORDERED: Aspirin 81 mg Enteric Coated Tablet PO SCH (12:00)
[2022-01-02] MEDS ORDERED: Flecainide 50 MG TAB PO SCH (12:00)
[2022-01-02] MEDS: Furosemide 40 MG/4 ML VIAL SLOW IVP SCH (13:43)
[2022-01-02] MEDS: Mometasone 200 MCG/Formoterol 5 MCG 120 PUFF INHALER INH SCH (19:19)
[2022-01-02] MEDS: Aspirin Chewable 81 MG TAB PO SCH (20:51)
[2022-01-02] MEDS: Metoprolol Tartrate 50 MG TAB PO SCH (20:52)
[2022-01-02] MEDS: Gabapentin 400 MG CAP PO SCH (20:52)
[2022-01-02] MEDS: Famotidine 20 MG TAB PO SCH (20:52)
[2022-01-02] MEDS: Melatonin 3 MG TAB PO PRN (20:52)
[2022-01-02] MEDS: Simvastatin 10 MG TAB PO SCH (20:53)
[2022-01-02] MEDS: Flecainide 50 MG TAB PO SCH (20:53)
[2022-01-02] MEDS: Polyethylene Glycol 3350 17 GM Packet PO SCH (20:53)
[2022-01-02] MEDS: Citalopram 20 MG TAB PO SCH (20:53)
[2022-01-02] MEDS: Apixaban 5 MG TAB PO SCH (20:53)
[2022-01-02] MEDS ORDERED: cefTRIAXone\\ROCEPHIN 2 GM VIAL IVPB SCH (21:00)
[2022-01-02] MEDS ORDERED: SODIUM CHLORIDE IVPB SCH (22:00)
[2022-01-02] MEDS ORDERED: PENICILLIN POTASSIUM IVPB SCH (22:00)
[2022-01-03 04:53] LABS: #Eosinphils 0.2 thou/uL (0.0-0.7); #Lymphocytes 1.2 thou/uL (1.20-3.40); #Monocytes 1.1 thou/uL (0.11-0.59); #Neutrophils 9.7 thou/uL (1.40-6.50); %Basophils 0.2 % (0.0-1.0); %Eosinophils 1.3 % (0.0-10.0); %Monocytes 8.8 % (0.0-10.0); %Neutrophils 79.6 % (42.0-75.0); Hemoglobin 8.3 g/dL (14.0-18.0); Mean Corpuscular HGB CONC 31.9 g/dL (32.0-36.0); Mean Corpuscular Hemoglobin 29.5 pg (27.0-31.0); Mean Corpuscular Volume 92.4 fL (78.0-98.0); Mean Platelet Volume 6.6 fL (7.4-10.4); Platelet Count 510 thou/uL (130-400); RBC Distribution Width 15.8 % (11.5-14.5); Red Blood Cell (RBC) Count 2.83 mill/uL (4.70-6.10); White Blood Cell (WBC) Count 12.2 thou/uL (4.8-10.8)
[2022-01-03 05:12] LABS: Anion Gap 16 mmol/L (10-20); BUN (Urea Nitrogen) 9 mg/dL (8.4-25.7); Calc. Creatinine Clearance 147 mL/min (70-130); Calcium 8.7 mg/dL (7.8-10.44); Carbon Dioxide 26 mmol/L (23-31); Chloride 97 mmol/L (98-107); Glucose 118 mg/dL (80-115); Sodium 136 mmol/L (136-145)
[2022-01-03 05:16] LABS: Critical Call Chemistry 2NO.CLO; Potassium 2.8 mmol/L (3.5-5.1)
[2022-01-03] MEDS: Furosemide 40 MG/4 ML VIAL SLOW IVP SCH ×2 (06:13→13:36)
[2022-01-03] MEDS ORDERED: Electrolyte Replacement Protocol 1 EACH FS SCH (06:45)
[2022-01-03] MEDS: Potassium Chloride 20 MEQ TAB PO SCH ×2 (07:04→13:36)
[2022-01-03] MEDS: Acetaminophen 325 MG TAB PO PRN (07:04)
[2022-01-03] MEDS: Mometasone 200 MCG/Formoterol 5 MCG 120 PUFF INHALER INH SCH ×2 (07:23→17:05)
[2022-01-03] MEDS ORDERED: Potassium Chloride 20 MEQ in Premix Bag 1 BAG IVPB SCH (09:00)
[2022-01-03 09:07] LABS: Magnesium 1.6 mg/dL (1.6-2.6)
[2022-01-03] MEDS: Polyethylene Glycol 3350 17 GM Packet PO SCH ×2 (10:10→21:12)
[2022-01-03] MEDS: cefTRIAXone\\ROCEPHIN 2 GM in Sodium Chloride 0.9% 100 ML IVPB SCH ×2 (10:10→21:13)
[2022-01-03] MEDS: Metoprolol Tartrate 50 MG TAB PO SCH ×2 (10:10→21:13)
[2022-01-03] MEDS: Flecainide 50 MG TAB PO SCH ×2 (10:11→21:14)
[2022-01-03] MEDS: Ferrous Gluconate 324 MG TAB PO SCH (10:11)
[2022-01-03] MEDS: Apixaban 5 MG TAB PO SCH ×2 (10:11→21:14)
[2022-01-03] MEDS: Gabapentin 400 MG CAP PO SCH ×3 (10:11→21:13)
[2022-01-03] MEDS: Famotidine 20 MG TAB PO SCH ×2 (10:11→21:14)
[2022-01-03] MEDS ORDERED: Magnesium 2 GM/50 ML(in water) 2 GM in Premix Bag 1 BAG IVPB SCH (11:00)
[2022-01-03] MEDS: Lidocaine 5% Patch TD SCH (13:36)
[2022-01-03] MEDS: HYDROcodone/Acetaminophen 5/325 mg Tablet PO PRN (16:28)
[2022-01-03 18:19] LABS: SARS-CoV-2 NAA Rapid Test Not Detected (NotDetected)
[2022-01-03] MEDS: Citalopram 20 MG TAB PO SCH (21:13)
[2022-01-03] MEDS: Simvastatin 10 MG TAB PO SCH (21:14)
[2022-01-03] MEDS: Aspirin Chewable 81 MG TAB PO SCH (21:14)
[2022-01-03] MEDS: Melatonin 3 MG TAB PO PRN (21:27)
[2022-01-03] MEDS ORDERED: SODIUM CHLORIDE IVPB SCH (22:00)
[2022-01-03] MEDS ORDERED: PENICILLIN POTASSIUM IVPB SCH (22:00)
[2022-01-04 04:49] LABS: Hemoglobin 8.6 g/dL (14.0-18.0); Mean Corpuscular HGB CONC 30.9 g/dL (32.0-36.0); Mean Corpuscular Hemoglobin 28.7 pg (27.0-31.0); Mean Corpuscular Volume 92.9 fL (78.0-98.0); Mean Platelet Volume 6.7 fL (7.4-10.4); Platelet Count 562 thou/uL (130-400); RBC Distribution Width 15.7 % (11.5-14.5); Red Blood Cell (RBC) Count 2.99 mill/uL (4.70-6.10); White Blood Cell (WBC) Count 12.2 thou/uL (4.8-10.8)
[2022-01-04 05:10] LABS: Anion Gap 16 mmol/L (10-20); BUN (Urea Nitrogen) 12 mg/dL (8.4-25.7); Calc. Creatinine Clearance 129 mL/min (70-130); Calcium 8.8 mg/dL (7.8-10.44); Carbon Dioxide 25 mmol/L (23-31); Chloride 99 mmol/L (98-107); Glucose 126 mg/dL (80-115); Potassium 3.6 mmol/L (3.5-5.1); Sodium 136 mmol/L (136-145)
[2022-01-04] MEDS: Furosemide 40 MG/4 ML VIAL SLOW IVP SCH ×2 (06:27→16:24)
[2022-01-04] MEDS: Mometasone 200 MCG/Formoterol 5 MCG 120 PUFF INHALER INH SCH ×2 (06:41→18:35)
[2022-01-04] MEDS: Metoprolol Tartrate 50 MG TAB PO SCH ×2 (08:58→21:07)
[2022-01-04] MEDS: Ferrous Gluconate 324 MG TAB PO SCH (08:59)
[2022-01-04] MEDS: Apixaban 5 MG TAB PO SCH ×2 (08:59→21:06)
[2022-01-04] MEDS: Famotidine 20 MG TAB PO SCH ×2 (08:59→21:07)
[2022-01-04] MEDS: Gabapentin 400 MG CAP PO SCH ×3 (09:00→21:07)
[2022-01-04] MEDS: Flecainide 50 MG TAB PO SCH ×2 (09:01→21:08)
[2022-01-04] MEDS: Polyethylene Glycol 3350 17 GM Packet PO SCH ×2 (09:02→21:22)
[2022-01-04] MEDS: HYDROcodone/Acetaminophen 5/325 mg Tablet PO PRN (09:08)
[2022-01-04] MEDS ORDERED: Potassium Chloride 20 MEQ TAB PO SCH (11:45)
[2022-01-04] MEDS: cefTRIAXone\\ROCEPHIN 2 GM in Sodium Chloride 0.9% 100 ML IVPB SCH ×2 (12:40→21:08)
[2022-01-04] MEDS: Lidocaine 5% Patch TD SCH (16:25)
[2022-01-04] MEDS: Simvastatin 10 MG TAB PO SCH (21:06)
[2022-01-04] MEDS: Aspirin Chewable 81 MG TAB PO SCH (21:06)
[2022-01-04] MEDS: Citalopram 20 MG TAB PO SCH (21:07)
[2022-01-04] MEDS: Melatonin 3 MG TAB PO PRN (21:11)
[2022-01-05] MEDS: HYDROcodone/Acetaminophen 5/325 mg Tablet PO PRN ×2 (04:04→13:13)
[2022-01-05 04:36] LABS: Anion Gap 15 mmol/L (10-20); BUN (Urea Nitrogen) 12 mg/dL (8.4-25.7); Calc. Creatinine Clearance 129 mL/min (70-130); Calcium 8.7 mg/dL (7.8-10.44); Carbon Dioxide 27 mmol/L (23-31); Chloride 97 mmol/L (98-107); Glucose 109 mg/dL (80-115); Potassium 3.4 mmol/L (3.5-5.1); Sodium 136 mmol/L (136-145)
[2022-01-05] MEDS ORDERED: Potassium Chloride 20 MEQ TAB PO SCH ×2 (05:15→08:00)
[2022-01-05] MEDS: Furosemide 40 MG/4 ML VIAL SLOW IVP SCH (05:59)
[2022-01-05] MEDS: Mometasone 200 MCG/Formoterol 5 MCG 120 PUFF INHALER INH SCH ×2 (07:28→18:54)
[2022-01-05] MEDS: Lidocaine 5% Patch TD SCH (09:59)
[2022-01-05] MEDS: Gabapentin 400 MG CAP PO SCH ×3 (09:59→22:17)
[2022-01-05] MEDS: Ferrous Gluconate 324 MG TAB PO SCH (10:01)
[2022-01-05] MEDS: Metoprolol Tartrate 50 MG TAB PO SCH ×2 (10:01→22:16)
[2022-01-05] MEDS: Flecainide 50 MG TAB PO SCH ×2 (10:01→22:17)
[2022-01-05] MEDS: Apixaban 5 MG TAB PO SCH ×2 (10:02→22:18)
[2022-01-05] MEDS: Polyethylene Glycol 3350 17 GM Packet PO SCH ×2 (10:02→22:18)
[2022-01-05] MEDS: Famotidine 20 MG TAB PO SCH ×2 (10:02→22:18)
[2022-01-05] MEDS: cefTRIAXone\\ROCEPHIN 2 GM in Sodium Chloride 0.9% 100 ML IVPB SCH ×2 (10:06→22:19)
[2022-01-05] MEDS: SODIUM CHLORIDE IVPB SCH (10:43)
[2022-01-05] MEDS: PENICILLIN POTASSIUM IVPB SCH (10:43)
[2022-01-05] MEDS ORDERED: Furosemide 20 MG TAB PO SCH (14:00)
[2022-01-05] MEDS: Simvastatin 10 MG TAB PO SCH (22:17)
[2022-01-05] MEDS: Citalopram 20 MG TAB PO SCH (22:17)
[2022-01-05] MEDS: Aspirin Chewable 81 MG TAB PO SCH (22:17)
[2022-01-05] MEDS: Acetaminophen 325 MG TAB PO PRN (22:22)
[2022-01-06] MEDS: Melatonin 3 MG TAB PO PRN ×2 (00:05→20:35)
[2022-01-06] MEDS: Acetaminophen 325 MG TAB PO PRN (06:26)
[2022-01-06] MEDS: Ferrous Gluconate 324 MG TAB PO SCH (08:16)
[2022-01-06] MEDS: Apixaban 5 MG TAB PO SCH ×2 (08:16→20:33)
[2022-01-06] MEDS: Famotidine 20 MG TAB PO SCH ×2 (08:16→20:34)
[2022-01-06] MEDS: Flecainide 50 MG TAB PO SCH ×2 (08:17→20:34)
[2022-01-06] MEDS: Gabapentin 400 MG CAP PO SCH ×3 (08:17→20:32)
[2022-01-06] MEDS: Metoprolol Tartrate 50 MG TAB PO SCH ×2 (08:18→20:33)
[2022-01-06] MEDS: Polyethylene Glycol 3350 17 GM Packet PO SCH ×2 (08:19→20:35)
[2022-01-06] MEDS ORDERED: Furosemide 20 MG TAB PO SCH ×2 (09:00→11:00)
[2022-01-06] MEDS: Mometasone 200 MCG/Formoterol 5 MCG 120 PUFF INHALER INH SCH ×2 (09:17→18:36)
[2022-01-06] MEDS: cefTRIAXone\\ROCEPHIN 2 GM in Sodium Chloride 0.9% 100 ML IVPB SCH ×2 (10:16→22:27)
[2022-01-06] MEDS ORDERED: hydrALAZINE 25 MG TAB PO SCH ×2 (10:52→11:00)
[2022-01-06] MEDS: SODIUM CHLORIDE IVPB SCH (11:03)
[2022-01-06] MEDS: PENICILLIN POTASSIUM IVPB SCH (11:03)
[2022-01-06] MEDS: Lidocaine 5% Patch TD SCH (11:08)
[2022-01-06] MEDS: hydrALAZINE 25 MG TAB PO SCH ×2 (15:27→20:33)
[2022-01-06] MEDS: Aspirin Chewable 81 MG TAB PO SCH (20:33)
[2022-01-06] MEDS: Potassium Chloride 20 MEQ TAB PO SCH (20:34)
[2022-01-06] MEDS: Simvastatin 10 MG TAB PO SCH (20:34)
[2022-01-06] MEDS: Citalopram 20 MG TAB PO SCH (20:34)
[2022-01-06] MEDS: Senokot S 8.6-50 MG TAB PO PRN (20:37)
[2022-01-07 05:13] LABS: #Basophils 0.1 thou/uL (0.0-0.2); #Eosinphils 0.4 thou/uL (0.0-0.7); #Lymphocytes 1.2 thou/uL (1.20-3.40); #Monocytes 0.8 thou/uL (0.11-0.59); #Neutrophils 8.3 thou/uL (1.40-6.50); %Basophils 0.5 % (0.0-1.0); %Lymphocytes 11.4 % (21.0-51.0); %Monocytes 7.5 % (0.0-10.0); %Neutrophils 76.5 % (42.0-75.0); Hemoglobin 9.1 g/dL (14.0-18.0); Mean Corpuscular HGB CONC 30.7 g/dL (32.0-36.0); Mean Corpuscular Hemoglobin 28.7 pg (27.0-31.0); Mean Corpuscular Volume 93.8 fL (78.0-98.0); Mean Platelet Volume 6.6 fL (7.4-10.4); Platelet Count 550 thou/uL (130-400); RBC Distribution Width 16.6 % (11.5-14.5); Red Blood Cell (RBC) Count 3.17 mill/uL (4.70-6.10); White Blood Cell (WBC) Count 10.8 thou/uL (4.8-10.8)
[2022-01-07 05:53] LABS: Anion Gap 17 mmol/L (10-20); BUN (Urea Nitrogen) 12 mg/dL (8.4-25.7); Calc. Creatinine Clearance 127 mL/min (70-130); Calcium 8.7 mg/dL (7.8-10.44); Carbon Dioxide 24 mmol/L (23-31); Chloride 100 mmol/L (98-107); Estimated GFR 96; Glucose 107 mg/dL (80-115); Potassium 3.7 mmol/L (3.5-5.1); Sodium 137 mmol/L (136-145)
[2022-01-07] MEDS: Mometasone 200 MCG/Formoterol 5 MCG 120 PUFF INHALER INH SCH ×2 (07:47→19:33)
[2022-01-07] MEDS ORDERED: Furosemide 20 MG TAB PO SCH (09:00)
[2022-01-07] MEDS: Ferrous Gluconate 324 MG TAB PO SCH (09:25)
[2022-01-07] MEDS: Apixaban 5 MG TAB PO SCH ×2 (09:26→20:41)
[2022-01-07] MEDS: Famotidine 20 MG TAB PO SCH ×2 (09:27→20:41)
[2022-01-07] MEDS: Flecainide 50 MG TAB PO SCH ×2 (09:28→20:42)
[2022-01-07] MEDS: Gabapentin 400 MG CAP PO SCH ×3 (09:30→20:42)
[2022-01-07] MEDS: hydrALAZINE 25 MG TAB PO SCH ×3 (09:31→20:41)
[2022-01-07] MEDS: Metoprolol Tartrate 50 MG TAB PO SCH ×2 (09:32→20:42)
[2022-01-07] MEDS: Polyethylene Glycol 3350 17 GM Packet PO SCH ×2 (09:42→20:43)
[2022-01-07] MEDS: Lidocaine 5% Patch TD SCH (09:42)
[2022-01-07] MEDS: SODIUM CHLORIDE IVPB SCH (11:18)
[2022-01-07] MEDS: PENICILLIN POTASSIUM IVPB SCH (11:18)
[2022-01-07] MEDS: cefTRIAXone\\ROCEPHIN 2 GM in Sodium Chloride 0.9% 100 ML IVPB SCH (11:23)
[2022-01-07] MEDS: Aspirin Chewable 81 MG TAB PO SCH (20:41)
[2022-01-07] MEDS: Citalopram 20 MG TAB PO SCH (20:42)
[2022-01-07] MEDS: Potassium Chloride 20 MEQ TAB PO SCH (20:42)
[2022-01-07] MEDS: Simvastatin 10 MG TAB PO SCH (20:43)
[2022-01-07] MEDS: Senokot S 8.6-50 MG TAB PO PRN (20:45)
[2022-01-07 22:12] VITALS: BP 129/58; TEMP 97.5
== END 2022-01-07 22:46 | DRG 291 ==
LOC: ERS 02:46 → ERHOLD 05:53 → 2NO 10:12
PROVIDERS: ADMIT Hospitalist; ATTEND Internal Medicine
DX: I11.0 Hypertensive heart disease with heart failure (principal); J96.01 Acute respiratory failure with hypoxia; I50.33 Acute on chronic diastolic (congestive) heart failure; I33.0 Acute and subacute infective endocarditis; J44.1 Chronic obstructive pulmonary disease with (acute) exacerbation; M46.26 Osteomyelitis of vertebra, lumbar region; Z20.822 Contact with and (suspected) exposure to COVID-19; Z66 Do not resuscitate; G89.4 Chronic pain syndrome; E78.5 Hyperlipidemia, unspecified; E87.6 Hypokalemia; E83.42 Hypomagnesemia; I48.0 Paroxysmal atrial fibrillation; D50.9 Iron deficiency anemia, unspecified; M46.46 Discitis, unspecified, lumbar region; B95.2 Enterococcus as the cause of diseases classified elsewhere; Z87.820 Personal history of traumatic brain injury; Z79.82 Long term (current) use of aspirin; Z79.899 Other long term (current) drug therapy; Z88.8 Allergy status to other drugs, medicaments and biological substances; Z87.891 Personal history of nicotine dependence; Z79.01 Long term (current) use of anticoagulants; Z82.49 Family history of ischemic heart disease and other diseases of the circulatory system
CPT/HCPCS: 36415; 71045; 80048; 80053; 82553; 82728; 83540; 83550; 83605; 83735; 83880; 84443; 84484; 85025; 85027; 85060; 87040; 93005; 93306; 93798; 94640; 96374; 96375; J0360; J0696; J1940; J2540; J3475; J3480; J3490; J7050; J7611; J7620

== ENCOUNTER 2022-01-26 23:59 | Emergency (ER) | payer MEDICARE, OTHER ==
[2022-01-27] MEDS ORDERED: Sterile Water 10 ML VIAL FS PRN (02:50)
[2022-01-27] MEDS ORDERED: Activase 2 MG VIAL CATH SCH (03:00)
== END 2022-01-27 05:06 | disposition home or self-care (01) ==
LOC: ERS 23:59
DX: T82.594A Other mechanical complication of infusion catheter, initial encounter (principal); E78.5 Hyperlipidemia, unspecified; J44.9 Chronic obstructive pulmonary disease, unspecified; I11.0 Hypertensive heart disease with heart failure; I50.9 Heart failure, unspecified; Z87.891 Personal history of nicotine dependence; Z79.82 Long term (current) use of aspirin; Z79.899 Other long term (current) drug therapy
CPT/HCPCS: 36593; J2997

== ENCOUNTER 2022-06-19 13:04 | Outpatient (CLI) | payer MEDICARE, OTHER ==
[~2022-06-19 13:04] MED LIST changes: -Gadobenate Dimeglumine 529 MG/1 ML (20ML VIAL) ONE; -Heparin 1,000 UNITS/ML VIAL ONE; +Iopamidol-370 76% 500 ML 1 ML ONE
== END 2022-06-19 13:05 | disposition home or self-care (01) ==
LOC: BICCT 13:04
PROVIDERS: ATTEND Otolaryngology Plastic Surgery within the Head & Neck
DX: K11.8 Other diseases of salivary glands (principal); I25.10 Atherosclerotic heart disease of native coronary artery without angina pectoris; M47.892 Other spondylosis, cervical region
CPT/HCPCS: 70491; 82565; Q9967

== ENCOUNTER 2022-09-06 21:33 | Inpatient (IN) | payer MEDICARE, OTHER ==
[2022-09-06] MEDS ORDERED: Acetaminophen 325 MG TAB PO PRN (22:33)
[2022-09-06] MEDS ORDERED: Ondansetron PF 4 MG/2 ML Vial IVP PRN (22:33)
[2022-09-06 23:10] LABS: CKMB 1.7 ng/mL (0-6.6)
[2022-09-06] MEDS ORDERED: Diltiazem 125 MG in Sodium Chloride 0.9% 100 ML IVPB SCH (23:30)
[2022-09-07] MEDS ORDERED: Gabapentin 300 MG CAP PO SCH (00:30)
[2022-09-07 00:52] VITALS: BMI 31.9
[2022-09-07] MEDS ORDERED: Apixaban 5 MG TAB PO SCH ×3 (01:30→09:00)
[2022-09-07] MEDS ORDERED: traZODone HCl 50 MG TAB PO SCH ×2 (01:45→21:00)
[2022-09-07 05:51] LABS: #Eosinphils 0.2 thou/uL (0.0-0.7); #Lymphocytes 1.4 thou/uL (1.20-3.40); #Monocytes 0.7 thou/uL (0.11-0.59); #Neutrophils 3.7 thou/uL (1.40-6.50); %Basophils 0.6 % (0.0-1.0); %Eosinophils 3.2 % (0.0-10.0); %Lymphocytes 23.2 % (21.0-51.0); %Monocytes 11.6 % (0.0-10.0); %Neutrophils 61.5 % (42.0-75.0); Hemoglobin 11.8 g/dL (14.0-18.0); Mean Corpuscular HGB CONC 32.3 g/dL (32.0-36.0); Mean Corpuscular Hemoglobin 28.3 pg (27.0-31.0); Mean Corpuscular Volume 87.6 fl (78.0-98.0); Mean Platelet Volume 7.3 fL (7.4-10.4); Platelet Count 218 10x3/uL (130-400); RBC Distribution Width 15.9 % (11.5-14.5); Red Blood Cell (RBC) Count 4.19 mill/uL (4.70-6.10)
[2022-09-07 06:06] LABS: Anion Gap 13 mmol/L (10-20); BUN (Urea Nitrogen) 13 mg/dL (8.4-25.7); Calc. Creatinine Clearance 123 mL/min (70-130); Carbon Dioxide 23 mmol/L (23-31); Chloride 109 mmol/L (98-107); Estimated GFR 93; Glucose 99 mg/dL (80-115); Magnesium 2.2 mg/dL (1.6-2.6); Potassium 3.8 mmol/L (3.5-5.1); Sodium 141 mmol/L (136-145)
[2022-09-07] MEDS ORDERED: Acetaminophen/Codeine 30-300mg Tablet PO SCH (06:45)
[2022-09-07] MEDS: Gabapentin 300 MG CAP PO SCH ×2 (08:12→15:08)
[2022-09-07] MEDS ORDERED: Acetaminophen/Codeine 30-300mg Tablet PO PRN ×2 (08:42→10:31)
[2022-09-07] MEDS ORDERED: Non-Formulary Item 1 EACH (Cyclobenzaprine Hcl [Cyclobenzaprine Hcl] 5 MG Tablet) PO PRN (08:42)
[2022-09-07] MEDS ORDERED: Furosemide 40 MG TAB PO SCH (09:00)
[2022-09-07] MEDS ORDERED: Flecainide 50 MG TAB PO SCH (09:00)
[2022-09-07] MEDS ORDERED: Diltiazem HCl SR 60 mg Capsule PO SCH (09:00)
[2022-09-07] MEDS ORDERED: Citalopram 20 MG TAB PO SCH (09:00)
[2022-09-07] MEDS ORDERED: Non-Formulary Item 1 EACH (Fluticasone/Umeclidin/Vilanter [Trelegy Ellipta 200-62.5-25] 1 INH SCH (09:00)
[2022-09-07] MEDS ORDERED: Fluticasone/Umeclidin/Vilanter [Trelegy Ellipta 200-62.5-25] INH SCH (09:00)
[2022-09-07] MEDS ORDERED: Cyclobenzaprine 10 MG TAB PO PRN (09:02)
[2022-09-07 15:51] VITALS: BP 134/85; TEMP 97.6
[2022-09-07] MEDS ORDERED: Simvastatin 10 MG TAB PO SCH (21:00)
[2022-09-08] MEDS ORDERED: Fluticasone/Umeclidin/Vilanter [Trelegy Ellipta 200-62.5-25] INH SCH (09:00)
[2022-09-08] MEDS ORDERED: Furosemide 20 MG TAB PO SCH (09:00)
== END 2022-09-07 16:30 | disposition home or self-care (01) | DRG 309 ==
LOC: ERS 21:33 → NEURO 22:21 → OBSVTOIN 09-07 08:56
PROVIDERS: ADMIT Internal Medicine; ATTEND Physician Assistant
DX: I48.91 Unspecified atrial fibrillation (principal); I50.32 Chronic diastolic (congestive) heart failure; I11.0 Hypertensive heart disease with heart failure; E78.5 Hyperlipidemia, unspecified; J06.9 Acute upper respiratory infection, unspecified; I25.10 Atherosclerotic heart disease of native coronary artery without angina pectoris; Z79.51 Long term (current) use of inhaled steroids; Z95.0 Presence of cardiac pacemaker; Z79.899 Other long term (current) drug therapy
CPT/HCPCS: 36415; 36416; 80048; 82553; 83735; 85025; 93005; 93306; 96365; 96366; G0378; J3490

== ENCOUNTER 2022-11-11 08:35 | Day surgery (SDC) | payer MEDICARE, OTHER ==
[2022-11-10 16:27] VITALS: BMI 30.8
[2022-11-10 17:31] LABS: Hemoglobin 12.3 g/dL (13.5-17.5); Mean Corpuscular Hemoglobin 27.1 pg (27.0-33.0); Mean Corpuscular Volume 84.6 fl (81.2-95.1); Mean Platelet Volume 9.6 fl (7.4-10.4); Platelet Count 294 10x3/uL (150-450); RBC Distribution Width 15.8 % (11.5-14.5); Red Blood Cell (RBC) Count 4.54 10x6/uL (4.32-5.72); White Blood Cell (WBC) Count 7.2 10x3/uL (3.5-10.5)
[2022-11-10 17:47] LABS: Anion Gap 16 mmol/L (10-20); BUN (Urea Nitrogen) 12 mg/dL (8.4-25.7); Calc. Creatinine Clearance 99 mL/min (70-130); Calcium 8.8 mg/dL (7.8-10.44); Carbon Dioxide 23 mmol/L (23-31); Chloride 104 mmol/L (98-107); Estimated GFR 75; Glucose 89 mg/dL (80-115); PTT 30.6 sec (22.0-33.0); Potassium 4.3 mmol/L (3.5-5.1); Prothrombin Time 10.9 sec (9.5-12.1); Sodium 139 mmol/L (136-145)
[2022-11-11] MEDS ORDERED: Heparin 25,000 units/D5W 500 ML ONE (09:24)
[2022-11-11] MEDS ORDERED: Protamine Sulfate 50 MG/5 ML VIAL ONE (09:24)
[2022-11-11] MEDS ORDERED: Isoproterenol 0.2 MG/1 ML AMP ONE (09:24)
[2022-11-11] MEDS ORDERED: Heparin 10,000 UNITS/ 10 ML VIAL ONE (09:24)
[2022-11-11] MEDS ORDERED: PHENYLEPHRINE-NS 100 MCG/ML 10 ML SYRINGE ONE (11:36)
[2022-11-11] MEDS ORDERED: ePHEDrine Sulfate 50 MG/10 ML VIAL ONE (11:36)
[2022-11-11] MEDS ORDERED: Dexamethasone 20 MG/5 ML VIAL ONE (11:36)
[2022-11-11] MEDS ORDERED: Glycopyrrolate 0.2 MG/ML 5 ML SYRINGE ONE (11:36)
[2022-11-11] MEDS ORDERED: NEOSTIGMINE 3 MG/3 ML SYR 3 MG/3 ML SYRINGE ONE (11:36)
[2022-11-11] MEDS ORDERED: Ondansetron PF 4 MG/2 ML Vial ONE (11:36)
[2022-11-11] MEDS ORDERED: Rocuronium Bromide 10 MG/ML (10ML VIAL) ONE (11:36)
[2022-11-11] MEDS ORDERED: PROPOFOL 200 MG/20 ML VIAL ONE (11:36)
[2022-11-11] MEDS ORDERED: Lidocaine 1% PF 5 ML VIAL ONE (11:36)
[2022-11-11] MEDS ORDERED: Vecuronium 10 MG VIAL ONE (11:36)
[2022-11-11] MEDS ORDERED: fentaNYL 50 mcg/mL 1 mL Vial ONE (14:58)
== END 2022-11-11 19:00 | disposition home or self-care (01) ==
LOC: SDC 08:35
PROVIDERS: ATTEND Internal Medicine Cardiovascular Disease
PROC: B244ZZ3 Ultrasonography of Right Heart, Intravascular (ICD-10-PCS; principal; 2022-11-11)
PROC: 02583ZZ Destruction of Conduction Mechanism, Percutaneous Approach (ICD-10-PCS; 2022-11-11)
PROC: 02K83ZZ Map Conduction Mechanism, Percutaneous Approach (ICD-10-PCS; 2022-11-11)
PROC: 4A023FZ Measurement of Cardiac Rhythm, Percutaneous Approach (ICD-10-PCS; 2022-11-11)
PROC: 4A0234Z Measurement of Cardiac Electrical Activity, Percutaneous Approach (ICD-10-PCS; 2022-11-11)
DX: I48.0 Paroxysmal atrial fibrillation (principal); I48.92 Unspecified atrial flutter; I47.20 Ventricular tachycardia, unspecified; I11.0 Hypertensive heart disease with heart failure; I50.30 Unspecified diastolic (congestive) heart failure; G89.29 Other chronic pain; M54.9 Dorsalgia, unspecified; I45.10 Unspecified right bundle-branch block; J44.9 Chronic obstructive pulmonary disease, unspecified; I25.2 Old myocardial infarction; I49.5 Sick sinus syndrome; Z87.891 Personal history of nicotine dependence; Z79.01 Long term (current) use of anticoagulants; Z79.899 Other long term (current) drug therapy; Z88.8 Allergy status to other drugs, medicaments and biological substances
CPT/HCPCS: 80048; 85027; 85610; 85730; 93005; 93623; 93655; 93656; J3010; 93010; C1732; C1759; C1760; C1894; J1100; J1644; J2405; J2704; J2720

== ENCOUNTER 2023-03-02 17:55 | Observation (INO) | payer MEDICARE, OTHER ==
[2023-03-02 18:25] VITALS: BMI 32.1
[2023-03-02] MEDS ORDERED: Acetaminophen/Codeine 30-300mg Tablet PO PRN (19:05)
[2023-03-02] MEDS ORDERED: Lorazepam 2 MG/ML VIAL SLOW IVP SCH (19:15)
[2023-03-02] MEDS ORDERED: Cyclobenzaprine 10 MG TAB PO PRN (19:16)
[2023-03-02 20:09] LABS: Troponin I 0.045 ng/mL (< 0.028)
[2023-03-02] MEDS: Gabapentin 300 MG CAP PO SCH (20:17)
[2023-03-02] MEDS: Apixaban 5 MG TAB PO SCH (20:18)
[2023-03-02] MEDS: Famotidine 20 MG TAB PO SCH (20:18)
[2023-03-02 20:35] LABS: #Eosinphils 0.1 thou/uL (0.0-0.7); #Monocytes 0.5 thou/uL (0.11-0.59); %Basophils 0.4 % (0.0-1.0); %Eosinophils 1.3 % (0.0-10.0); %Lymphocytes 23.3 % (21.0-51.0); %Monocytes 11.4 % (0.0-10.0); %Neutrophils 63.2 % (42.0-75.0); Hematocrit 35.9 % (42.0-52.0); Hemoglobin 11.3 g/dL (14.0-18.0); Mean Corpuscular HGB CONC 31.5 g/dL (32.0-36.0); Mean Corpuscular Hemoglobin 25.9 pg (27.0-31.0); Mean Corpuscular Volume 82.2 fl (78.0-98.0); Mean Platelet Volume 9.4 fL (7.4-10.4); Platelet Count 225 10x3/uL (130-400); RBC Distribution Width 18.2 % (11.5-14.5); Red Blood Cell (RBC) Count 4.37 mill/uL (4.70-6.10); White Blood Cell (WBC) Count 4.7 10x3/uL (4.8-10.8)
[2023-03-02 20:57] LABS: ALT (SGPT) 16 U/L (8-55); AST (SGOT) 19 U/L (5-34); Albumin 4.1 g/dL (3.4-4.8); Alkaline Phosphatase 89 U/L (40-110); BUN (Urea Nitrogen) 15 mg/dL (8.4-25.7); Bilirubin, Total 0.2 mg/dL (0.2-1.2); Calc. Creatinine Clearance 70 mL/min (70-130); Calcium 8.9 mg/dL (7.8-10.44); Carbon Dioxide 24 mmol/L (23-31); Chloride 108 mmol/L (98-107); Estimated GFR 49; Globulin 2.7 g/dL (2.4-3.5); Glucose 139 mg/dL (80-115); Potassium 3.7 mmol/L (3.5-5.1); Protein, Total 6.8 g/dL (5.8-8.1); Sodium 127 mmol/L (136-145)
[2023-03-02] MEDS ORDERED: traZODone HCl 50 MG TAB PO SCH (21:00)
[2023-03-02] MEDS ORDERED: Citalopram 20 MG TAB PO SCH (21:00)
[2023-03-02] MEDS ORDERED: Simvastatin 10 MG TAB PO SCH (21:00)
[2023-03-02 23:40] LABS: Anion Gap 13 mmol/L (10-20); BUN (Urea Nitrogen) 17 mg/dL (8.4-25.7); Calc. Creatinine Clearance 71 mL/min (70-130); Calcium 8.6 mg/dL (7.8-10.44); Carbon Dioxide 24 mmol/L (23-31); Chloride 102 mmol/L (98-107); Estimated GFR 49; Glucose 110 mg/dL (80-115); Magnesium 2.2 mg/dL (1.6-2.6); Potassium 3.9 mmol/L (3.5-5.1); Sodium 135 mmol/L (136-145)
[2023-03-02 23:51] LABS: Phosphorus 3.3 mg/dL (2.3-4.7)
[2023-03-02 23:58] LABS: Troponin I 0.046 ng/mL (< 0.028)
[2023-03-03 05:11] LABS: #Eosinphils 0.1 thou/uL (0.0-0.7); #Monocytes 0.7 thou/uL (0.11-0.59); #Neutrophils 2.4 thou/uL (1.40-6.50); %Basophils 0.4 % (0.0-1.0); %Eosinophils 2.4 % (0.0-10.0); %Lymphocytes 30.8 % (21.0-51.0); %Monocytes 14.5 % (0.0-10.0); %Neutrophils 51.7 % (42.0-75.0); Mean Corpuscular HGB CONC 31.4 g/dL (32.0-36.0); Mean Corpuscular Hemoglobin 25.9 pg (27.0-31.0); Mean Corpuscular Volume 82.4 fl (78.0-98.0); Mean Platelet Volume 9.5 fL (7.4-10.4); Platelet Count 216 10x3/uL (130-400); RBC Distribution Width 18.5 % (11.5-14.5); Red Blood Cell (RBC) Count 4.25 mill/uL (4.70-6.10); White Blood Cell (WBC) Count 4.6 10x3/uL (4.8-10.8)
[2023-03-03 05:40] LABS: ALT (SGPT) 15 U/L (8-55); AST (SGOT) 16 U/L (5-34); Albumin 3.8 g/dL (3.4-4.8); Alkaline Phosphatase 85 U/L (40-110); Anion Gap 14 mmol/L (10-20); BUN (Urea Nitrogen) 16 mg/dL (8.4-25.7); Bilirubin, Total 0.4 mg/dL (0.2-1.2); Calc. Creatinine Clearance 81 mL/min (70-130); Calcium 8.7 mg/dL (7.8-10.44); Carbon Dioxide 22 mmol/L (23-31); Chloride 103 mmol/L (98-107); Estimated GFR 58; Globulin 2.7 g/dL (2.4-3.5); Glucose 100 mg/dL (80-115); Protein, Total 6.5 g/dL (5.8-8.1); Sodium 135 mmol/L (136-145)
[2023-03-03] MEDS ORDERED: Lorazepam 2 MG/ML VIAL SLOW IVP SCH (08:00)
[2023-03-03] MEDS ORDERED: dilTIAZem CD 180 MG CAP PO SCH (09:00)
[2023-03-03] MEDS ORDERED: Fluticasone/Umeclidin/Vilanter [Trelegy Ellipta 200-62.5-25] INH SCH (09:00)
[2023-03-03] MEDS: Gabapentin 300 MG CAP PO SCH (11:17)
[2023-03-03] MEDS: Apixaban 5 MG TAB PO SCH (11:18)
[2023-03-03] MEDS: Famotidine 20 MG TAB PO SCH (11:18)
[2023-03-03 11:46] VITALS: TEMP 98.1
[2023-03-03 12:55] VITALS: BP 127/60
== END 2023-03-03 12:45 | disposition home or self-care (01) ==
LOC: INTOOBSV 17:55 → 2SW 17:55
PROVIDERS: ADMIT Internal Medicine; ATTEND Internal Medicine
DX: R07.2 Precordial pain (principal); R20.2 Paresthesia of skin; I48.20 Chronic atrial fibrillation, unspecified; J44.9 Chronic obstructive pulmonary disease, unspecified; E78.5 Hyperlipidemia, unspecified; F32.A Depression, unspecified; I50.32 Chronic diastolic (congestive) heart failure; I13.0 Hypertensive heart and chronic kidney disease with heart failure and stage 1 through stage 4 chronic kidney disease, or unspecified chronic kidney disease; N18.9 Chronic kidney disease, unspecified; E87.1 Hypo-osmolality and hyponatremia; Z79.01 Long term (current) use of anticoagulants; Z95.0 Presence of cardiac pacemaker; Z88.8 Allergy status to other drugs, medicaments and biological substances; Z86.73 Personal history of transient ischemic attack (TIA), and cerebral infarction without residual deficits; Z87.891 Personal history of nicotine dependence; Z98.890 Other specified postprocedural states; Z79.899 Other long term (current) drug therapy
CPT/HCPCS: 70551; 80048; 80053 ×2; 83735; 83880; 84100; 84484; 85025 ×2; 96374; 97530; 97535; G0378 ×2; 36415; J2060

== ENCOUNTER 2023-03-17 14:06 | Emergency (ER) | payer MEDICARE, OTHER ==
[2023-03-17 14:28] LABS: #Basophils 0.1 thou/uL (0.0-0.2); #Eosinphils 0.1 thou/uL (0.0-0.7); #Monocytes 0.9 thou/uL (0.11-0.59); #Neutrophils 5.2 thou/uL (1.40-6.50); %Basophils 0.8 % (0.0-1.0); %Eosinophils 1.5 % (0.0-10.0); %Lymphocytes 15.5 % (21.0-51.0); %Monocytes 11.6 % (0.0-10.0); %Neutrophils 70.2 % (42.0-75.0); Hematocrit 34.9 % (42.0-52.0); Hemoglobin 10.9 g/dL (14.0-18.0); Mean Corpuscular HGB CONC 31.2 g/dL (32.0-36.0); Mean Corpuscular Volume 83.3 fl (78.0-98.0); Mean Platelet Volume 9.6 fL (7.4-10.4); Platelet Count 267 10x3/uL (130-400); RBC Distribution Width 18.7 % (11.5-14.5); Red Blood Cell (RBC) Count 4.19 mill/uL (4.70-6.10); White Blood Cell (WBC) Count 7.4 10x3/uL (4.8-10.8)
[2023-03-17 14:53] LABS: ALT (SGPT) 18 U/L (8-55); AST (SGOT) 17 U/L (5-34); Albumin 4.1 g/dL (3.4-4.8); Alkaline Phosphatase 93 U/L (40-110); Anion Gap 12 mmol/L (10-20); BUN (Urea Nitrogen) 14 mg/dL (8.4-25.7); Bilirubin, Total 0.4 mg/dL (0.2-1.2); Calc. Creatinine Clearance 0 mL/min (70-130); Calcium 8.6 mg/dL (7.8-10.44); Carbon Dioxide 24 mmol/L (23-31); Chloride 106 mmol/L (98-107); Estimated GFR 71; Globulin 2.7 g/dL (2.4-3.5); Glucose 94 mg/dL (80-115); Potassium 4.5 mmol/L (3.5-5.1); Protein, Total 6.8 g/dL (5.8-8.1); Sodium 137 mmol/L (136-145)
[2023-03-17 14:57] LABS: Troponin I 0.038 ng/mL (< 0.028)
[2023-03-17 18:02] LABS: Troponin I 0.044 ng/mL (< 0.028)
== END 2023-03-17 18:52 | disposition home or self-care (01) ==
LOC: ERS 14:06
DX: I48.91 Unspecified atrial fibrillation (principal); E78.5 Hyperlipidemia, unspecified; I10 Essential (primary) hypertension; Z87.891 Personal history of nicotine dependence
CPT/HCPCS: 36415; 71045; 80053; 83880; 84484; 85025; 93005

== ENCOUNTER 2024-01-28 13:18 | Outpatient (CLI) | payer MEDICARE, OTHER | END 2024-01-28 13:19 | disposition home or self-care (01) | LOC: ULT 13:18 | PROVIDERS: ATTEND Otolaryngology Plastic Surgery within the Head & Neck | DX: K11.8 Other diseases of salivary glands (principal) | CPT/HCPCS: 76536 ==

== ENCOUNTER 2024-04-03 11:04 | Outpatient (CLI) | payer MEDICARE, OTHER ==
[2024-04-03 13:29] LABS: #Basophils 0.04 10x3/uL (0.0-0.2); %Basophils 0.5 % (0.0-1.0); %Eosinophils 1.8 % (0.0-10.0); %Lymphocytes 22.2 % (21.0-51.0); %Monocytes 12.3 % (0.0-10.0); %Neutrophils 62.9 % (42.0-75.0); Hematocrit 40.7 % (42.0-52.0); Hemoglobin 13.2 g/dL (14.0-18.0); Mean Corpuscular HGB CONC 32.4 g/dL (32.0-36.0); Mean Corpuscular Hemoglobin 27.8 pg (27.0-31.0); Mean Corpuscular Volume 85.9 fL (78.0-98.0); Mean Platelet Volume 9.5 fL (7.4-10.4); Platelet Count 297 10x3/uL (130-400); RBC Distribution Width 16.5 % (11.5-14.5); Red Blood Cell (RBC) Count 4.74 mill/uL (4.70-6.10)
[2024-04-03 13:42] LABS: INR-International Normal Ratio 1.2; Prothrombin Time 15.2 sec (12.0-14.7)
[2024-04-03 13:43] LABS: Bilirubin Negative (Negative); Blood, Urine Negative (Negative); Clarity Clear (Clear); Glucose, Urine (Dipstick) Normal (Negative); Ketone, Urine Negative (Negative); Leukocyte Negative Leu/uL (Negative); Nitrite Negative (Negative); Protein, Urine (Dipstick) Negative (Neg-Trace); Urobilinogen Normal mg/dL (Less than 2)
[2024-04-03 13:45] LABS: PTT 33.9 sec (22.9-36.1)
[2024-04-03 13:58] LABS: ALT (SGPT) 10 U/L (8-55); AST (SGOT) 13 U/L (5-34); Albumin 4.2 g/dL (3.4-4.8); Alkaline Phosphatase 80 U/L (40-110); Anion Gap 11 mmol/L (10-20); BUN (Urea Nitrogen) 18 mg/dL (8.4-25.7); Bilirubin, Total 0.5 mg/dL (0.2-1.2); Calc. Creatinine Clearance 0 mL/min (70-130); Calcium 9.3 mg/dL (7.8-10.44); Carbon Dioxide 24 mmol/L (23-31); Chloride 104 mmol/L (98-107); Estimated GFR 52; Globulin 3.3 g/dL (2.4-3.5); Glucose 78 mg/dL (83-110); Potassium 4.4 mmol/L (3.5-5.1); Protein, Total 7.5 g/dL (5.8-8.1); Sodium 135 mmol/L (136-145)
== END 2024-04-03 11:05 | disposition home or self-care (01) ==
LOC: LABBT 11:04
PROVIDERS: ATTEND Internal Medicine Cardiovascular Disease
DX: Z01.812 Encounter for preprocedural laboratory examination (principal); I48.0 Paroxysmal atrial fibrillation
CPT/HCPCS: 80053; 81003; 85025; 85610; 85730

== ENCOUNTER 2024-04-10 07:17 | Day surgery (SDC) | payer MEDICARE, OTHER ==
[2024-04-03 12:08] VITALS: BMI 34.2
[2024-04-10] MEDS ORDERED: Heparin 10,000 UNITS/ 10 ML VIAL ONE (08:37)
[2024-04-10] MEDS ORDERED: Protamine Sulfate 50 MG/5 ML VIAL ONE (08:37)
[2024-04-10] MEDS ORDERED: CEFAZOLIN 2 GM VIAL ONE (08:37)
[2024-04-10] MEDS ORDERED: SUGAMMADEX SODIUM 200 MG/2 ML VIAL ONE ×2 (08:58→10:57)
[2024-04-10] MEDS ORDERED: fentaNYL 50 mcg/mL 1 mL Vial ONE (08:59)
[2024-04-10] MEDS ORDERED: Dexamethasone 20 MG/5 ML VIAL ONE (09:55)
[2024-04-10] MEDS ORDERED: Ondansetron PF 4 MG/2 ML Vial ONE (09:55)
[2024-04-10] MEDS ORDERED: Lidocaine 1% PF 5 ML VIAL ONE (09:55)
[2024-04-10] MEDS ORDERED: Rocuronium Bromide 10 MG/ML (10ML VIAL) ONE (09:55)
[2024-04-10] MEDS ORDERED: ePHEDrine Sulfate 50 MG/10 ML VIAL ONE (09:55)
[2024-04-10] MEDS ORDERED: PROPOFOL 200 MG/20 ML VIAL ONE (09:55)
[2024-04-10] MEDS ORDERED: Iopamidol 370 76% 100 ML VIAL ONE (09:55)
== END 2024-04-10 15:45 | disposition home or self-care (01) ==
LOC: SDC 07:17
PROVIDERS: ATTEND Internal Medicine Cardiovascular Disease
PROC: 02L73DK Occlusion of Left Atrial Appendage with Intraluminal Device, Percutaneous Approach (ICD-10-PCS; principal; 2024-04-10)
PROC: B246ZZ4 Ultrasonography of Right and Left Heart, Transesophageal (ICD-10-PCS; 2024-04-10)
DX: I48.0 Paroxysmal atrial fibrillation (principal); Z00.6 Encounter for examination for normal comparison and control in clinical research program; I49.5 Sick sinus syndrome; I10 Essential (primary) hypertension; E78.5 Hyperlipidemia, unspecified; I25.2 Old myocardial infarction; I50.9 Heart failure, unspecified; I11.0 Hypertensive heart disease with heart failure; J44.9 Chronic obstructive pulmonary disease, unspecified; F17.200 Nicotine dependence, unspecified, uncomplicated; F41.9 Anxiety disorder, unspecified; F32.A Depression, unspecified; Z98.890 Other specified postprocedural states; Z79.01 Long term (current) use of anticoagulants; Z79.899 Other long term (current) drug therapy; Z88.8 Allergy status to other drugs, medicaments and biological substances
CPT/HCPCS: 33340; 85347; 86850; 86900; 86901; 86920; 93306; 93355; C1759; C1760 ×2; C1889; C1894 ×3; J1100; J1644; J2405; J2704; J2720; J3010; Q9967

== ENCOUNTER 2024-05-29 13:03 | Outpatient (CLI) | payer MEDICARE, OTHER ==
[2024-05-29 14:03] LABS: #Basophils 0.06 10x3/uL (0.0-0.2); %Basophils 0.8 % (0.0-1.0); %Eosinophils 1.9 % (0.0-10.0); %Lymphocytes 21.6 % (21.0-51.0); %Monocytes 12.4 % (0.0-10.0); %Neutrophils 62.9 % (42.0-75.0); Hematocrit 39.9 % (42.0-52.0); Hemoglobin 12.6 g/dL (14.0-18.0); Mean Corpuscular HGB CONC 31.6 g/dL (32.0-36.0); Mean Corpuscular Hemoglobin 27.3 pg (27.0-31.0); Mean Corpuscular Volume 86.6 fL (78.0-98.0); Mean Platelet Volume 9.5 fL (7.4-10.4); Platelet Count 286 10x3/uL (130-400); RBC Distribution Width 14.9 % (11.5-14.5); Red Blood Cell (RBC) Count 4.61 mill/uL (4.70-6.10)
[2024-05-29 14:16] LABS: Anion Gap 14 mmol/L (10-20); BUN (Urea Nitrogen) 13 mg/dL (8.4-25.7); Calc. Creatinine Clearance 0 mL/min (70-130); Calcium 9.2 mg/dL (7.8-10.44); Carbon Dioxide 26 mmol/L (23-31); Chloride 103 mmol/L (98-107); Estimated GFR 54; Glucose 90 mg/dL (83-110); INR-International Normal Ratio 1.2; PTT 32.9 sec (22.9-36.1); Potassium 4.1 mmol/L (3.5-5.1); Prothrombin Time 15.1 sec (12.0-14.7); Sodium 139 mmol/L (136-145)
== END 2024-05-29 13:04 | disposition home or self-care (01) ==
LOC: LABBT 13:03
PROVIDERS: ATTEND Internal Medicine Cardiovascular Disease
DX: Z01.812 Encounter for preprocedural laboratory examination (principal); I48.0 Paroxysmal atrial fibrillation
CPT/HCPCS: 80048; 85025; 85610; 85730

== ENCOUNTER 2024-05-31 05:57 | Day surgery (SDC) | payer MEDICARE, OTHER ==
[2024-05-29 13:21] VITALS: BMI 33.6
[2024-05-31] MEDS ORDERED: Lidocaine 1% PF 5 ML VIAL ONE (07:45)
[2024-05-31] MEDS ORDERED: PROPOFOL 200 MG/20 ML VIAL ONE (07:45)
== END 2024-05-31 10:05 | disposition home or self-care (01) ==
LOC: SDC 05:57
PROVIDERS: ATTEND Internal Medicine Cardiovascular Disease
PROC: B24BZZ4 Ultrasonography of Heart with Aorta, Transesophageal (ICD-10-PCS; principal; 2024-05-31)
DX: I48.0 Paroxysmal atrial fibrillation (principal); Z91.81 History of falling; Z88.8 Allergy status to other drugs, medicaments and biological substances; Z79.01 Long term (current) use of anticoagulants; Z79.82 Long term (current) use of aspirin; Z79.899 Other long term (current) drug therapy
CPT/HCPCS: 93312; J2704

== ENCOUNTER 2024-07-04 12:51 | Inpatient (IN) | payer MEDICARE, OTHER ==
[2024-07-04 13:37] LABS: #Basophils 0.07 10x3/uL (0.0-0.2); %Basophils 0.8 % (0.0-1.0); %Eosinophils 1.6 % (0.0-10.0); %Lymphocytes 19.7 % (21.0-51.0); %Monocytes 11.9 % (0.0-10.0); %Neutrophils 65.8 % (42.0-75.0); Hematocrit 40.8 % (42.0-52.0); Hemoglobin 13.1 g/dL (14.0-18.0); Mean Corpuscular HGB CONC 32.1 g/dL (32.0-36.0); Mean Corpuscular Hemoglobin 27.2 pg (27.0-31.0); Mean Corpuscular Volume 84.8 fL (78.0-98.0); Mean Platelet Volume 9.1 fL (7.4-10.4); Platelet Count 287 10x3/uL (130-400); RBC Distribution Width 15.3 % (11.5-14.5); Red Blood Cell (RBC) Count 4.81 mill/uL (4.70-6.10)
[2024-07-04 13:55] LABS: PTT 29.9 sec (22.9-36.1); Prothrombin Time 13.6 sec (12.0-14.7)
[2024-07-04 14:01] LABS: ALT (SGPT) 12 U/L (8-55); AST (SGOT) 19 U/L (5-34); Albumin 3.9 g/dL (3.4-4.8); Alkaline Phosphatase 92 U/L (40-110); Anion Gap 13 mmol/L (10-20); BUN (Urea Nitrogen) 11 mg/dL (8.4-25.7); Bilirubin, Total 0.5 mg/dL (0.2-1.2); Calc. Creatinine Clearance 0 mL/min (70-130); Carbon Dioxide 22 mmol/L (23-31); Chloride 107 mmol/L (98-107); Estimated GFR 78; Globulin 3.5 g/dL (2.4-3.5); Glucose 99 mg/dL (83-110); Lipase 36 U/L (8-78); Magnesium 2.3 mg/dL (1.6-2.6); Potassium 4.3 mmol/L (3.5-5.1); Protein, Total 7.4 g/dL (5.8-8.1); Sodium 138 mmol/L (136-145)
[2024-07-04] MEDS ORDERED: Iopamidol-370 76% 500 ML MDV (1 ML CHARGE) ONE (14:08)
[2024-07-04] MEDS ORDERED: dilTIAZem 25 MG/5 ML VIAL ONE (15:57)
[2024-07-04] MEDS ORDERED: dilTIAZem 125 MG/25 ML SDV ONE (16:50)
[2024-07-04] MEDS ORDERED: Aspirin Chewable 81 MG TAB ONE (16:50)
[2024-07-04] MEDS ORDERED: Ondansetron PF 4 MG/2 ML Vial IVP PRN (17:45)
[2024-07-04] MEDS ORDERED: Acetaminophen 325 MG TAB PO PRN (17:45)
[2024-07-04] MEDS ORDERED: Fluticasone Propionate Nasal Spray 16 gm Bottle NASAL PRN (17:58)
[2024-07-04] MEDS: Melatonin 3 MG TAB PO SCH (19:54)
[2024-07-04] MEDS: Gabapentin 300 MG CAP PO SCH (19:54)
[2024-07-04] MEDS: Simvastatin 10 MG TAB PO SCH (19:54)
[2024-07-04] MEDS: traZODone HCl 50 MG TAB PO SCH (19:55)
[2024-07-04] MEDS: Docusate Calcium (SURFAK) 240 MG CAP PO SCH (19:56)
[2024-07-04] MEDS: Furosemide 40 MG TAB PO SCH (19:56)
[2024-07-04] MEDS: dilTIAZem 125 MG in Sodium Chloride 0.9% 100 ML IVPB SCH (23:55)
[2024-07-05] MEDS: Acetaminophen/Codeine 30-300mg Tablet PO PRN ×2 (01:38→17:40)
[2024-07-05] MEDS: Cyclobenzaprine 10 MG TAB PO PRN (01:39)
[2024-07-05 04:45] LABS: #Basophils 0.04 10x3/uL (0.0-0.2); %Basophils 0.6 % (0.0-1.0); %Eosinophils 2.2 % (0.0-10.0); %Lymphocytes 23.2 % (21.0-51.0); %Neutrophils 63.7 % (42.0-75.0); Hematocrit 34.3 % (42.0-52.0); Mean Corpuscular HGB CONC 32.1 g/dL (32.0-36.0); Mean Corpuscular Hemoglobin 27.4 pg (27.0-31.0); Mean Corpuscular Volume 85.5 fL (78.0-98.0); Mean Platelet Volume 9.6 fL (7.4-10.4); Platelet Count 238 10x3/uL (130-400); RBC Distribution Width 15.5 % (11.5-14.5); Red Blood Cell (RBC) Count 4.01 mill/uL (4.70-6.10)
[2024-07-05 05:10] LABS: Anion Gap 13 mmol/L (10-20); BUN (Urea Nitrogen) 12 mg/dL (8.4-25.7); Calc. Creatinine Clearance 0 mL/min (70-130); Calcium 8.2 mg/dL (7.8-10.44); Carbon Dioxide 20 mmol/L (23-31); Chloride 108 mmol/L (98-107); Estimated GFR 72; Glucose 108 mg/dL (83-110); Potassium 3.9 mmol/L (3.5-5.1); Sodium 137 mmol/L (136-145)
[2024-07-05 06:42] VITALS: BMI 35.2
[2024-07-05] MEDS ORDERED: Non-Formulary Item 1 EACH (Citalopram Hydrobromide [Celexa] 40 MG Tablet) PO SCH (09:00)
[2024-07-05] MEDS: Aspirin 81 mg Enteric Coated Tablet PO SCH (09:34)
[2024-07-05] MEDS: Pantoprazole DR 40 MG TAB PO SCH (09:34)
[2024-07-05] MEDS: Clopidogrel Bisulfate 75 MG TAB PO SCH (09:35)
[2024-07-05] MEDS: Citalopram 20 MG TAB PO SCH (09:35)
[2024-07-05] MEDS: Flecainide 50 MG TAB PO SCH (20:39)
[2024-07-06] MEDS: Morphine 2 MG/ML VIAL SLOW IVP SCH (03:02)
[2024-07-06 04:31] LABS: Hematocrit 36.5 % (42.0-52.0); Hemoglobin 11.6 g/dL (14.0-18.0); Mean Corpuscular HGB CONC 31.8 g/dL (32.0-36.0); Mean Corpuscular Hemoglobin 26.9 pg (27.0-31.0); Mean Corpuscular Volume 84.5 fL (78.0-98.0); Mean Platelet Volume 9.6 fL (7.4-10.4); Platelet Count 251 10x3/uL (130-400); RBC Distribution Width 15.3 % (11.5-14.5); Red Blood Cell (RBC) Count 4.32 mill/uL (4.70-6.10)
[2024-07-06 04:46] LABS: Anion Gap 13 mmol/L (10-20); BUN (Urea Nitrogen) 12 mg/dL (8.4-25.7); Calc. Creatinine Clearance 105 mL/min (70-130); Calcium 8.5 mg/dL (7.8-10.44); Carbon Dioxide 20 mmol/L (23-31); Chloride 108 mmol/L (98-107); Estimated GFR 72; Glucose 113 mg/dL (83-110); Potassium 3.8 mmol/L (3.5-5.1); Sodium 137 mmol/L (136-145)
[2024-07-06 04:50] LABS: Troponin I 0.124 ng/mL (< 0.028)
[2024-07-06] MEDS: dilTIAZem CD 120 MG CAP PO SCH (10:47)
[2024-07-06] MEDS ORDERED: Etomidate 40 MG (20 mL) VIAL ONE (12:48)
[2024-07-06] MEDS ORDERED: Ondansetron HCl/PF 4 MG/2 ML Vial IVP PRN (13:05)
[2024-07-07 08:04] VITALS: BP 123/70; TEMP 97.9
[2024-07-07] MEDS: dilTIAZem CD 120 MG CAP PO SCH (08:09)
[2024-07-07] MEDS ORDERED: FLU (Fluad Triv) TS24-25 (65UP)/MF59C/PF 45 MCG/0.5 ML Syringe IM ONE (19:30)
== END 2024-07-07 11:18 | disposition home or self-care (01) | DRG 281 ==
LOC: ERS 12:51 → SUATTDRO 12:51 → PCU 16:45
PROVIDERS: ADMIT Internal Medicine; ATTEND Internal Medicine
DX: I48.92 Unspecified atrial flutter (principal); I50.32 Chronic diastolic (congestive) heart failure; I21.A1 Myocardial infarction type 2; E78.5 Hyperlipidemia, unspecified; I11.0 Hypertensive heart disease with heart failure; Z98.890 Other specified postprocedural states; Z87.891 Personal history of nicotine dependence; K21.9 Gastro-esophageal reflux disease without esophagitis; D64.9 Anemia, unspecified; Z88.8 Allergy status to other drugs, medicaments and biological substances; Z79.01 Long term (current) use of anticoagulants; Z79.82 Long term (current) use of aspirin; Z79.899 Other long term (current) drug therapy; Z95.0 Presence of cardiac pacemaker; I25.10 Atherosclerotic heart disease of native coronary artery without angina pectoris; E66.9 Obesity, unspecified; Z68.35 Body mass index [BMI] 35.0-35.9, adult
CPT/HCPCS: 36415; 71045; 71275; 80048; 80053; 83605; 83690; 83735; 83880; 84145; 84443; 84484; 85025; 85027; 85610; 85730; 87040; 92960; 93005; 93010; 93306; 96374; J2272

== ENCOUNTER 2024-07-16 16:06 | Inpatient (IN) | payer MEDICARE, OTHER ==
[~2024-07-16 16:06] MED LIST changes: -Iopamidol-370 76% 500 ML 1 ML ONE; +Iopamidol-370 76% 500 ML MDV (1 ML CHARGE) ONE
[2024-07-16] MEDS ORDERED: Magnesium 2 GM/50 ML BAG (IN WATER) ONE (16:42)
[2024-07-16] MEDS ORDERED: dilTIAZem 25 MG/5 ML VIAL ONE (16:43)
[2024-07-16 16:45] LABS: #Basophils 0.07 10x3/uL (0.0-0.2); %Eosinophils 1.9 % (0.0-10.0); %Lymphocytes 26.7 % (21.0-51.0); %Monocytes 10.3 % (0.0-10.0); Hemoglobin 12.1 g/dL (14.0-18.0); Mean Corpuscular HGB CONC 31.8 g/dL (32.0-36.0); Mean Corpuscular Volume 84.8 fL (78.0-98.0); Platelet Count 310 10x3/uL (130-400); RBC Distribution Width 15.1 % (11.5-14.5); Red Blood Cell (RBC) Count 4.48 mill/uL (4.70-6.10)
[2024-07-16 16:59] LABS: ALT (SGPT) 13 U/L (8-55); AST (SGOT) 15 U/L (5-34); Albumin 3.9 g/dL (3.4-4.8); Alkaline Phosphatase 90 U/L (40-110); Anion Gap 11 mmol/L (10-20); BUN (Urea Nitrogen) 12 mg/dL (8.4-25.7); Bilirubin, Total 0.4 mg/dL (0.2-1.2); Calc. Creatinine Clearance 0 mL/min (70-130); Calcium 8.7 mg/dL (7.8-10.44); Carbon Dioxide 25 mmol/L (23-31); Chloride 104 mmol/L (98-107); Estimated GFR 53; Globulin 3.4 g/dL (2.4-3.5); Glucose 95 mg/dL (83-110); Potassium 4.2 mmol/L (3.5-5.1); Protein, Total 7.3 g/dL (5.8-8.1); Sodium 136 mmol/L (136-145)
[2024-07-16 17:06] LABS: Troponin I 0.073 ng/mL (< 0.028)
[2024-07-16] MEDS ORDERED: dilTIAZem 125 MG/25 ML SDV ONE (18:40)
[2024-07-16] MEDS ORDERED: Digoxin 0.5 MG/2 ML AMP ONE (18:40)
[2024-07-16] MEDS ORDERED: Enoxaparin 60 MG (0.6 mL) SYRINGE ONE (18:57)
[2024-07-16] MEDS ORDERED: Ondansetron PF 4 MG/2 ML Vial IVP PRN (20:01)
[2024-07-16] MEDS ORDERED: Ondansetron ODT 4 MG TAB PO PRN (20:01)
[2024-07-16] MEDS ORDERED: Cyclobenzaprine 10 MG TAB PO PRN (20:27)
[2024-07-16 21:06] LABS: Troponin I 0.092 ng/mL (< 0.028)
[2024-07-16] MEDS ORDERED: Gabapentin 300 MG CAP ONE (21:28)
[2024-07-16] MEDS ORDERED: traZODone HCl 50 MG TAB ONE (21:29)
[2024-07-16] MEDS: Simvastatin 10 MG TAB PO SCH (21:34)
[2024-07-16] MEDS: Gabapentin 300 MG CAP PO SCH (21:34)
[2024-07-16] MEDS: traZODone HCl 50 MG TAB PO SCH (21:34)
[2024-07-16 23:29] VITALS: BMI 33.6
[2024-07-17 05:42] LABS: #Basophils 0.08 10x3/uL (0.0-0.2); %Basophils 1.3 % (0.0-1.0); %Lymphocytes 29.4 % (21.0-51.0); %Monocytes 11.2 % (0.0-10.0); %Neutrophils 54.8 % (42.0-75.0); Hematocrit 38.3 % (42.0-52.0); Hemoglobin 12.1 g/dL (14.0-18.0); Mean Corpuscular HGB CONC 31.6 g/dL (32.0-36.0); Mean Corpuscular Hemoglobin 26.9 pg (27.0-31.0); Mean Corpuscular Volume 85.1 fL (78.0-98.0); Platelet Count 278 10x3/uL (130-400); RBC Distribution Width 15.1 % (11.5-14.5)
[2024-07-17 05:57] LABS: Anion Gap 13 mmol/L (10-20); BUN (Urea Nitrogen) 11 mg/dL (8.4-25.7); Calc. Creatinine Clearance 112 mL/min (70-130); Calcium 8.3 mg/dL (7.8-10.44); Carbon Dioxide 22 mmol/L (23-31); Chloride 109 mmol/L (98-107); Estimated GFR 82; Glucose 109 mg/dL (83-110); Potassium 4.1 mmol/L (3.5-5.1); Sodium 140 mmol/L (136-145)
[2024-07-17] MEDS: dilTIAZem 125 MG in Sodium Chloride 0.9% 100 ML IVPB SCH (06:05)
[2024-07-17] MEDS: Enoxaparin 40 MG (0.4 mL) SYRINGE SC SCH (08:46)
[2024-07-17] MEDS: Citalopram 20 MG TAB PO SCH (08:46)
[2024-07-17] MEDS: Aspirin 81 mg Enteric Coated Tablet PO SCH (08:46)
[2024-07-17] MEDS: Pantoprazole DR 40 MG TAB PO SCH (08:46)
[2024-07-17] MEDS: Acetaminophen 325 MG TAB PO PRN (09:37)
[2024-07-17] MEDS: Flecainide 50 MG TAB PO SCH (12:08)
[2024-07-17] MEDS ORDERED: PROPOFOL 20 ML ONE (13:02)
[2024-07-17] MEDS ORDERED: Midazolam HCl 2 mg/2 ml Vial ONE (13:14)
[2024-07-17] MEDS ORDERED: Atropine Sulfate 1 mg/10 ml Syringe ONE (13:20)
[2024-07-17] MEDS: Acetaminophen/Codeine 30-300mg Tablet PO PRN (15:38)
[2024-07-17 15:47] VITALS: BP 137/73; TEMP 97.5
[2024-07-17] MEDS ORDERED: Carvedilol 6.25 MG TAB PO SCH (17:00)
[2024-07-17] MEDS ORDERED: Flecainide 50 MG TAB PO SCH (21:00)
[2024-07-18] MEDS ORDERED: Clopidogrel Bisulfate 75 MG TAB PO SCH (09:00)
== END 2024-07-17 18:05 | disposition home or self-care (01) | DRG 281 ==
LOC: ERS 16:06 → ERHOLD 19:52 → OBS 22:36
PROVIDERS: ADMIT Student in an Organized Health Care Education/Training Program; ATTEND Internal Medicine
PROC: 5A2204Z Restoration of Cardiac Rhythm, Single (ICD-10-PCS; principal; 2024-07-17)
DX: I48.92 Unspecified atrial flutter (principal); I13.0 Hypertensive heart and chronic kidney disease with heart failure and stage 1 through stage 4 chronic kidney disease, or unspecified chronic kidney disease; I21.A1 Myocardial infarction type 2; I50.32 Chronic diastolic (congestive) heart failure; N17.9 Acute kidney failure, unspecified; I49.5 Sick sinus syndrome; D53.9 Nutritional anemia, unspecified; I48.0 Paroxysmal atrial fibrillation; E78.5 Hyperlipidemia, unspecified; N18.2 Chronic kidney disease, stage 2 (mild); J44.9 Chronic obstructive pulmonary disease, unspecified; E66.9 Obesity, unspecified; Z95.0 Presence of cardiac pacemaker; Z87.820 Personal history of traumatic brain injury; Z68.33 Body mass index [BMI] 33.0-33.9, adult; Z87.891 Personal history of nicotine dependence; Z88.8 Allergy status to other drugs, medicaments and biological substances; Z79.899 Other long term (current) drug therapy; Z79.51 Long term (current) use of inhaled steroids; Z79.82 Long term (current) use of aspirin; Z79.02 Long term (current) use of antithrombotics/antiplatelets
CPT/HCPCS: 36415; 71045; 71275; 80048; 80053; 83880; 84484; 85025; 85379; 92960; 93005; 96365; 96372; 96375; 96376; J0461; J1160; J1650; J2250; J2704; J3475; Q9967